=== PATIENT | female | born 1965 | race Two or more races ===

== ENCOUNTER 2024-05-17 16:52 | Inpatient (IN) | payer MEDICAID, MEDICARE, SELFPAY ==
[2024-05-17 16:55] VITALS: BMI 28.3
[2024-05-17 17:05] VITALS: BP 133/84; PULSE 102; RESP 20; TEMP 37.1; O2SAT 91; BMI 26.0
--- NOTE | 2024-05-17 17:06 | XR_ITS ---
Examination: PA lateral chest 2 views Technique: Upright PA lateral chest 2 views Exam date and time: May 17, 2024 1739 hrs. Comparison January 31, 2023 Indications: Onset chest pain today. Findings: Bilateral extensive pneumonia Mild to moderate enlargement left ventricle with prominent vascular congestion Moderate osteopenia Impression: Extensive bilateral pneumonia Suspicious for mild associated heart failure
--- NOTE | 2024-05-17 17:06 | EKG_ITS ---
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
--- NOTE | 2024-05-17 17:07 | PD.EDRME ---
Rapid Medical Screening Exam [facility] Arrival date/time: 05/17/24 16:52 58-year-old female oxygen dependent presents to the emergency department today complaints of chest pain, shortness of breath, abdominal pain and rectal bleeding Chief Complaint: Chest Pain Time Seen by Provider: 05/17/24 17:04 Vital signs: Vital Signs Temperature 98.7 F 05/17/24 17:05 Pulse Rate 102 H 05/17/24 17:05 Respiratory Rate 20 05/17/24 17:05 Blood Pressure 133/84 H 05/17/24 17:05 Pulse Oximetry (%) 91 L 05/17/24 17:05 Oxygen Delivery Method Nasal Cannula 05/17/24 17:05 Oxygen Flow Rate 3 05/17/24 17:05
--- NOTE | 2024-05-17 17:52 | XR_ITS ---
Examination: CT abdomen with intravenous contrast CT pelvis with intravenous contrast 2-D coronal reconstructions 2-D sagittal reconstructions Date and time of exam:May 17, 2024 at 1851 hrs. Comparison October 27, 2019 Indications: Onset right lower abdominal pain and rectal bleeding today. CTDI: vol (mGy) 7.38 DLP: (mGycm) 413 Technique: Multiple axial sections of the abdomen and pelvis have been obtained. 64 slice high-resolution scanner used. 3 mm axial sections have been obtained, post intravenous injection 60 cc [id number] 2-D sagittal, coronal reconstructions obtained. Low dose protocols were performed. One or more of the following dose reduction techniques were used; automated exposure control, adjustment of the mA and/or KV according to patient size, use of iterative reconstruction technique. Findings: Severe pulmonary fibrosis Liver mildly irregular in contour Spleen is not enlarged No gallstones No pancreatic or adrenal mass Severe bilateral renal scarring more prominent on the right Aorta normal size The appendix is not clearly visualized Very severe diffuse hyperemia and inflammatory change involving the entire colon No bowel obstruction Free fluid in the pelvis Contracted urinary bladder Absent uterus Moderate osteopenia Impression: Severe pulmonary fibrosis Primary hepatocellular disease Severe bilateral renal scarring Very severe diffuse colitis, differential would include ulcerative colitis, Crohn's disease
--- NOTE | 2024-05-17 17:53 | EDNOTE_ITS ---
ED General RME/HPI General Chief complaint: Chest Pain Stated complaint: chest pain, rectal bleeding, abdominal pain LR Time Seen by Provider: 05/17/24 17:04 Arrival date/time: 05/17/24 16:52 CC: Abdominal pain with bloody stools HPI ongoing for the past 3 days the patient has had red stools with abdominal pain no prior history of similar events. Patient is significant history for COPD denies fever but is also complaining of mild chest pain. RME / HPI RME / HPI narrative: 05/17/24 16:52 58-year-old female oxygen dependent presents to the emergency department today complaints of chest pain, shortness of breath, abdominal pain and rectal bleeding Related Data Home Medications ?Medication ?Instructions ?Recorded ?Confirmed methadone 10 mg/5 mL oral solution 109 mg PO QDAY 10/0901/27/23 quetiapine 200 mg tablet (Seroquel) 200 mg PO QDAY 10/0901/27/23 amitriptyline 75 mg tablet 75 mg PO QPM 11/11/2201/27 albuterol sulfate 90 mcg/actuation 2 puff inhalation Q ID PRN 01/27/23 01/27/23 aerosol inhaler Shortness Of Breath Or Wheez ing clonidine HCl 0.3 mg tablet 0.3 mg PO BID 01/27/2310/12 fluoxetine 40 mg capsule 40 mg PO BID 01/27/23 mometasone-formoterol HFA 200 2 puff inhalation BID 01/27/23 mcg-5 mcg/actuation aerosol inhaler (Dulera) Allergies Allergy/AdvReac Type Severity Reaction Status Date / Time Fish Containing Products Allergy Severe Anaphylaxis Verified 11/10/22 20:07 fish derived Allergy Severe Anaphylaxis Verified 11/10/22 20:07 shellfish derived Allergy Severe Anaphylaxis, Verified 10/28/22 17:38 HIVES AND THROAT SWELLING Review of Systems Review of Systems Narrative Review of Systems: GEN: No fever, no chills, no weight loss EYES: No discharge, no visual changes, no pain HEENT: No ear pain, no congestion, no sore throat PULM: No shortness of breath, no cough, no congestion CV: No chest pain, no dyspnea on exertion, no palpitations GI: No nausea, no vomiting, no diarrhea, + pain, no constipation : No frequency, no urgency, no dysuria MUSC/SKEL: No joint pain, no back pain SKIN: No rash PSYCH: No hallucinations, no depression HEME/LYMPH: No easy bleeding or bruising tendencies NEURO: No weakness, no headache Past Medical History Past Medical History NEUROLOGIC: Negative Neurological Disorders or Cerebrovascular Accident CARDIAC: Positive Cardiac Disorders and Hypertension; Negative Aneurysm or Congestive Heart Failure RESPIRATORY: Positive Chronic Obstructive Pulmonary Disease (COPD) and Asthma GASTROINTESTINAL: Negative Gastrointestinal Disorders GENITOURINARY: Negative Genitourinary Disorders or Renal Disease MUSCULOSKELETAL: Negative Musculoskeletal Disorders ENT: Negative Eye Prosthesis ENDOCRINE: Negative Diabetes Mellitus Type 1 or Diabetes Mellitus Type 2 HEMATOLOGIC: Negative Blood Disorders or Sickle Cell Disease PSYCHO/SOCIAL: Positive Depression OTHER HISTORY: Negative Autoimmune Disease, Developmental Delay, Blood Transfusions, Anesthesia Reactions, Organ Transplant, MRSA, Clostridium Difficile or Cancer Surgical History SURGICAL: Negative Cardiac Surgery, Open Heart Surgery, Endocrine Surgery, Ear Surgery, Abdominal Surgery, Nephrectomy, Joint Replacement, Neurologic Surgery, Mastectomy, Lumpectomy, Vasectomy or Organ Transplant Social History SMOKING STATUS: Never smoker SECOND HAND EXPOSURE: No ED Exam Narrative Physical exam: [General: In mild discomfort but not in any acute distress Head normocephalic HEENT: Within acceptable limits Neck is supple nontender Chest equal chest rise nontender to palpation Respiratory: Clear to auscultation no wheezes crackles or rubs CV: Rate rhythm is regular no murmurs rubs or clicks Abdomen patient is guarding with diffuse tenderness throughout. Back: No CVA tenderness no spinous process tenderness from cervical spine thoracic and lumbar spine Skin: Intact no petechiae rash induration ulceration or crepitus Extremities: Moving all extremity against resistance cap refill less than 2 seconds neurosensory intact Neuro: Awake alert oriented x3 Glascow coma 15 no focal deficits] Course Quality Measures none Orders Category Date Time Status CT Screening NOW Care 05/17/24 17:[address] Screening NOW Care 05/17/24 17:52 Completed EKG (ED ONLY) *Do not use* NOW Care 05/17/24 17:06 Completed Insert IV NOW Care 05/17/24 17:07 Active Saline [Insert IV] NOW Care 05/17/24 19:[address] abdomen pelvis w con Stat Exams 05/17/24 17:52 Completed EKG (ED Only) Stat Exams 05/17/24 17:06 Draft XR chest 2V Stat Exams 05/17/24 17:06 Completed B-Type Natriuretic Peptide Stat Lab 05/17/24 17:49 Completed CBC Stat Lab 05/17/24 17:49 Completed Comprehensive Metabolic Panel Stat Lab 05/17/24 17:49 Completed Drug Screen,Urine Stat Lab 05/18/24 10:00 Received Lipase Stat Lab 05/17/24 17:49 Completed Magnesium Stat Lab 05/17/24 17:49 Completed Partial Thromboplastin Time Stat Lab 05/17/24 17:49 Completed Prothrombin Time with INR Stat Lab 05/17/24 17:49 Completed Troponin I Stat Lab 05/17/24 17:49 Completed Urinalysis Stat Lab 05/18/24 10:00 Completed Sodium Chloride 0.9% 1000 ml [Ns] 1,000 ml Med 05/17/24 19:31 Discontinued IV 75 mls/hr Vital Signs Vital signs: Vital Signs Temperature 98.7 F 05/17/24 17:05 Pulse Rate 102 H 05/17/24 17:05 Respiratory Rate 20 05/17/24 17:05 Blood Pressure 133/84 H 05/17/24 17:05 Pulse Oximetry (%) 91 L 05/17/24 17:05 Oxygen Delivery Method Nasal Cannula 05/17/24 17:05 Oxygen Flow Rate 3 05/17/24 17:05 [facility] Patient data External records reviewed:: [facility] previous records Clinical information provided by:: patient Social determinants that could affect healthcare access:: none Patient has the following chronic illnesses:: COPD, hypertension How is presenting disease/condition affected by chronic disease/condition?: no chronic disease Evaluation data The following diagnostics were reviewed and interpreted by me:: lab results, radiology exam(s) and EKG tracing(s) Lab and/or radiology exams considered but not ordered:: CBC shows 17,000 leukocytosis, no anemia thrombocytopenia Coags within acceptable limits CMP shows elevated sodium and glucose no other electrolyte imbalances renal impairment transaminitis or T. bili elevation. Troponin is negative BNP is negative CT shows extensive colitis Chest x-ray shows superimposed pneumonia EKG performed at 1715 shows ventricular rate of 9 7 IL interval 173 QRS of 167 QTc of 441 this is sinus rhythm right bundle branch block. Interpretation Summary: Patient's case discussed with resident for Dr. Dubose who agrees to accept the patient for admission. Patient is in agreement with this plan. Medications Medications considered but not ordered:: None Medication administrations:: Medication Administration History Acetaminophen (Acetaminophen 325 Mg Tablet) 650 mg PO Q6H PRN PRN Reason: PAIN SCALE 1-3 (mild Stop: 06/16/24 19:57 Acetaminophen (Acetaminophen 325 Mg Tablet) 650 mg PO Q6H PRN PRN Reason: Fever >100.4 Stop: 06/16/24 19:57 Hydrocodone Bitart/Acetaminophen (Hydrocodone/Apap 10/325 Tab) 1 tab PO Q4HR PRN PRN Reason: PAIN SCALE 7-10 (Severe Stop: 05/22/24 19:57 Last Admin: 05/18/24 06:16 Dose: 1 tab Documented By: Admin: 05/17/24 20:49 Dose: 1 tab Documented By: CVL Albuterol/Ipratropium (Albuterol/Ipratropium (Duoneb) Rt Carmen 3 Ml Nebu) 3 ml INH Q6HRRT [facility] Stop: 06/17/24 00:59 Last Admin: 05/18/24 00:46 Dose: 3 ml Documented By: ANTONIO Sodium Chloride (Ns) 1,000 mls @ 75 mls/hr IV .[id number] [facility] Stop: 06/16/24 20:14 Last Admin: 05/17/24 21:14 Dose: 75 mls/hr Documented By: THOR Ciprofloxacin/Dextrose (Cipro Ivpb) 400 mg in 200 mls @ 200 mls/hr IV Q12HR [facility] Stop: 05/25/24 10:03 Metronidazole (Flagyl 500 Mg Iv) 500 mg in 100 mls @ 200 mls/hr IV Q8HR [facility] Stop: 05/25/24 10:04 Last Admin: 05/18/24 10:38 Dose: 200 mls/hr Documented By: BLANCA Ondansetron HCl (Ondansetron Inj 2 Mg/Ml Inj 2 Ml) 4 mg IV Q6H PRN; Protocol PRN Reason: NAUSEA OR VOMITING Stop: 06/16/24 19:57 Oxycodone/Acetaminophen (Oxycodone/Apap 5/325 Tablet) 1 tab PO Q6H PRN PRN Reason: PAIN SCALE 4-6 (Moderate Stop: 05/22/24 19:57 Last Admin: 05/17/24 23:55 Dose: 1 tab Documented By: [facility] Pantoprazole Sodium (Pantoprazole Inj 40 Mg Vial) 40 mg IVP QDAY BRIGIDO Stop: 06/16/24 20:14 Last Admin: 05/18/24 09:01 Dose: 40 mg Documented By: Admin: 05/17/24 20:49 Dose: 40 mg Documented By: CVL Discontinued Medications Hydromorphone HCl (Hydromorphone Inj 2 Mg/Ml Vial) 0.25 mg IVP X1 ONE Stop: 05/17/24 21:56 Last Admin: 05/17/24 22:05 Dose: 0.25 mg Documented By: [facility] Hydromorphone HCl (Hydromorphone Inj 2 Mg/Ml Vial) 0.5 mg IVP X1 ONE Stop: 05/17/24 22:55 Last Admin: 05/17/24 23:01 Dose: 0.5 mg Documented By: [facility] Sodium Chloride (Ns) 1,000 mls @ 75 mls/hr IV .[id number] BRIGIDO Stop: 05/18/24 08:00 Last Infusion: 05/17/24 21:14 Dose: Infused Documented By: Admin: 05/17/24 19:43 Dose: 75 mls/hr Documented By: THOR Piperacillin Sod/Tazobactam (Sod 3.375 gm/ Sodium Chloride) 50 mls @ 100 mls/hr IV Q8HR [facility] Stop: 05/25/24 05:59 Last Admin: 05/18/24 05:07 Dose: 100 mls/hr Documented By: [facility] Azithromycin 250 mg/ Sodium (Chloride) 250 mls @ 250 mls/hr IV DAILY@2100 [facility] Stop: 05/25/24 20:59 Azithromycin 250 mg/ Sodium (Chloride) 250 mls @ 250 mls/hr IV X1 ONE Stop: 05/17/24 21:14 Last Admin: 05/17/24 20:41 Dose: 250 mls/hr Documented By: CVL Piperacillin Sod/Tazobactam (Sod 4.5 gm/ Sodium Chloride) 100 mls @ 200 mls/hr IV X1 ONE Stop: 05/17/24 20:44 Last Admin: 05/17/24 21:38 Dose: 200 mls/hr Documented By: [facility] Sodium Chloride (Sodium Chloride Rt 10% 15 Ml Nebu) 5 ml INH X1 ONE Stop: 05/17/24 19:59 None Consultations Consultation(s) initiated? (list below): No Diagnosis Differential Diagnosis ED Complaint MDM: Pneumonia colitis ileus obstruction Most likely diagnosis given after review of the tests above:: Pneumonia colitis Admission Indicated Admission indicated?: indicated Explain why admission is indicated or not indicated:: Requires further medical management Admission Request Was there a request for admission?: No Disposition Plan Disposition Plan: Admit Medical Decision Making Differential Diagnosis Differential Diagnosis: Pneumonia colitis ileus obstruction Lab Data 05/18/24 05:16 05/18/24 05:16 Labs: Lab Results 05/17/24 Range/Units 17:49 WBC 17.2 H (3.6-11.0) Thou/mm3 RBC 4.90 (4.00-5.20) Miln/mm3 Hgb 12.7 (12.0-16.0) g/dL Hct 41.2 (36.0-46.0) % MCV 84 (80-100) fL MCH 25.9 (25.0-35.0) pg MCHC 30.8 L (31.0-37.0) g/dl RDW Std Deviation 44.0 (36.4-46.3) fL Plt Count 279 (140-440) Thou/mm3 Neut % (Auto) 82 H (37-80) % Lymph % (Auto) 8 L (10-50) % [place] % (Auto) 9 (0-12) % Eos % (Auto) 1 (0-10) % Baso % (Auto) 0 (0-2.5) % Neut # (Auto) 14.1 H (1.8-7.7) Thou/mm3 Lymph # (Auto) 1.4 (1.0-4.8) Thou/mm3 [place] # (Auto) 1.5 H (0.0-0.8) Thou/mm3 Eos # (Auto) 0.1 (0.0-0.5) Thou/mm3 Baso # (Auto) 0.0 (0.0-0.2) Thou/mm3 Immature Gran # (Auto) 0.10 H (0.00-0.00) Thou/mm3 Absolute Nucleated RBC 0.00 (0.00-0.00) Thou/mm3 Immature Gran % 1 H (0-0) % Nucleated RBC % 0 (0) /100 WBC PT 11.6 (9.0-12.2) Seconds INR 1.1 (0.9-1.3) APTT 28.7 (22.0-36.0) Seconds Sodium 135 L (136-145) mMol/L Potassium 4.2 (3.4-5.1) mMol/L Chloride 99 (98-107) mMol/L Carbon Dioxide 30.6 (20.0-31.0) mMol/L Anion Gap 5 L (7-16) BUN 14 (9-23) mg/dL Creatinine 0.9 (0.6-1.3) mg/dL Estim Creat Clear Calc 57.8 L (>60) mL/min eGFR > 60 (60 - ) See Note BUN/Creatinine Ratio 16 (12-20) Ratio Glucose 139 H (74-106) mg/dL Calculated Osmolality 272 L (275-295) Calcium 8.8 (8.3-10.6) mg/dL Corrected Calcium 9.2 (8.5-10.1) mg/dL Magnesium 1.8 (1.6-2.6) mg/dL Total Bilirubin 0.2 L (0.3-1.2) mg/dL AST 16 (0-34) U/L ALT 17 (10-49) U/L Alkaline Phosphatase 101 (46-116) U/L Troponin I < 0.002 (0.0-0.045) ng/mL B-Natriuretic Peptide < 20 (0-100) pg/mL Total Protein 6.6 (5.7-8.2) gm/dL Albumin 3.5 (3.5-5.0) gm/dL Globulin 3.1 (2.3-3.5) gm/dL Albumin/Globulin Ratio 1.1 L (1.2-2.2) Lipase 20 (12-53) U/L Discharge Plan Plan Patient Disposition: Other Care w/in Hosp ([facility]) Patient condition on transfer: Stable Problem List Clinical Impression: Pneumonia, Colitis 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
[2024-05-17 17:54] LABS: Basophils % (Auto) 0 % (0-2.5); Eosinophils # (Auto) 0.1 Thou/mm3 (0.0-0.5); Eosinophils % (Auto) 1 % (0-10); Hematocrit 41.2 % (36.0-46.0); Hemoglobin 12.7 g/dL (12.0-16.0); Immature Granulocytes % (Auto) 1 % (0-0); Lymphocytes # (Auto) 1.4 Thou/mm3 (1.0-4.8); Lymphocytes % (Auto) 8 % (10-50); Mean Corpuscular HGB Conc 30.8 g/dl (31.0-37.0); Mean Corpuscular Hemoglobin 25.9 pg (25.0-35.0); Mean Corpuscular Volume 84 fL (80-100); Monocytes # (Auto) 1.5 Thou/mm3 (0.0-0.8); Monocytes % (Auto) 9 % (0-12); Neutrophils # (Auto) 14.1 Thou/mm3 (1.8-7.7); Neutrophils % (Auto) 82 % (37-80); Nucleated Red Blood Cell % 0 /100 WBC (0); Platelet Count 279 Thou/mm3 (140-440); White Blood Count 17.2 Thou/mm3 (3.6-11.0)
[2024-05-17 18:08] LABS: INR 1.1 (0.9-1.3); Partial Thromboplastin Time 28.7 Seconds (22.0-36.0); Prothrombin Time 11.6 Seconds (9.0-12.2)
[2024-05-17 18:10] LABS: B-Type Natriuretic Peptide < 20 pg/mL (0-100)
[2024-05-17 18:24] LABS: Alanine Aminotransferase 17 U/L (10-49); Albumin, Serum 3.5 gm/dL (3.5-5.0); Albumin/Globulin Ratio 1.1 (1.2-2.2); Anion Gap 5 (7-16); Aspartate Amino Transferase 16 U/L (0-34); BUN/Creatinine Ratio 16 Ratio (12-20); Bilirubin,Total 0.2 mg/dL (0.3-1.2); Blood Urea Nitrogen 14 mg/dL (9-23); Calcium 8.8 mg/dL (8.3-10.6); Calcium (Corrected) 9.2 mg/dL (8.5-10.1); Carbon Dioxide 30.6 mMol/L (20.0-31.0); Chloride 99 mMol/L (98-107); Creatinine (Component) 0.9 mg/dL (0.6-1.3); Estimated Creatinine Clearance 57.8 mL/min (>60); Globulin 3.1 gm/dL (2.3-3.5); Glucose 139 mg/dL (74-106); Lipase 20 U/L (12-53); Magnesium 1.8 mg/dL (1.6-2.6); Osmolality,Calculated 272 (275-295); Potassium 4.2 mMol/L (3.4-5.1); Sodium 135 mMol/L (136-145); Total Protein 6.6 gm/dL (5.7-8.2); Troponin I < 0.002 ng/mL (0.0-0.045); eGFR > 60 See Note
[2024-05-17 19:05] LABS: Alkaline Phosphatase 101 U/L (46-116)
[2024-05-17 19:21] VITALS: BP 147/78; PULSE 86; RESP 18; TEMP 37; O2SAT 97
[2024-05-17] MEDS: SODIUM CHLORIDE 0.9% 1000 ML 1,000 ML 75 ML IV ×2 (19:43→21:14)
--- NOTE | 2024-05-17 20:15 | ESHP_ITS ---
Documentation for date of: 05/17/24 [facility] History of Present Illness History of present illness: This is a 58-year-old female with PMHx of COPD on 3.5 L home oxygen, HTN, and depression presenting with abdominal pain and diarrhea. Reports 1 week of gradual onset, waxing and waning, diffuse abdominal pain that worsened over the last few days. Associated with watery diarrhea and occasional streaks of blood that occurred around the same time. Pain not associated with eating, however relieved with defecation. Admits to chronic dark stool. Also had subjective fever over the last week, but no chills or night sweats. She has tried IBUPROFEN for pain without relief of symptoms. When Denies similar symptoms in the past, sick exposure, recent travel, fall or trauma, chills, night sweats, headaches, chest pain, cough, shortness of breath, nausea, vomiting or constipation, dysuria, hematuria, urinary frequency or urgency. Never had screening colonoscopy or endoscopy in the past. ED COURSE: Afebrile, BP 147/78, HR 86, RR 18, satting 97% on 3 L. WBC 17.2, major CBC within normal limits. Coag studies. Sodium 135, GLUCOSE 139, remainder chemistry panel WNL, including LFTs, LA, troponin and BNP. UA negative for UTI. EKG sinus rhythm without acute ST changes. CXR showed extensive bilateral pneumonia, suspected mild CHF pattern. PMHx: COPD, HTN, depression PSHx: No surgeries including abdominal surgery. MEDS: From chart review (doesn't know her home meds): ALBUTEROL inhaler 2 puffs QID PRN, DULERA 2 puffs BID, CLONIDINE 0.3 mg BID, FLUOXETINE 40 mg BID, AMITRIPTYLINE 75 mg HS, QUETIAPINE 200 mg daily. ALLERGIES: Allergy to fish product and shellfish FHx: No family history of cancer, inflammatory, or GI disease. SH: Active smoker, currently smokes 1 cigarette a day, denies alcohol or drug use. Exam Vital Signs Temp Pulse Resp BP Pulse Ox O2 Del Method O2 Flow Rate 98.6 F 86 18 147/78 H 97 Nasal Cannula 3 05/17/24 19:21 05/17/24 19:21 05/17/24 19:21 05/17/24 19:21 05/17/24 19:21 05/17/24 19:21 05/17/24 19:21 Narrative Exam GENERAL * Normal appearing adult female, in mild distress secondary to pain. HEENT * NCAT.?CHIQUI. Oral mucosa is moist. Patent Nares NECK * Supple, nontender, no thyromegaly, no meningismus, no JVD, no step offs CHEST * RRR, no m/g/r * CTAB, no w/r/r. Symmetrical chest rise. No intercostal subcostal retraction * Atraumatic, nontender, no crepitus, symmetrical expansion. ABDOMEN * Soft, distended, diffus tenderness worse in RLQ. * Mild guarding in RLQ, no rebound tenderness/masses. * Bowel sounds presents in all quadrants. EXTREMITIES * Nontender, no cyanosis, no edema * No edema/cyanosis.? SKIN * Warm and dry, no jaundice/rashes. NEUROMUSCULAR * No lumbar or midline, no CVA, no paraspinal muscle spasm or tenderness. * Moves all 4 extremities well, with full ROM and good CSM. * RICHARDS x4, CN II-XII grossly intact. * No focal neurologic deficits. PSYCHIATRY * Normal mood and affect, cooperative, no SI or HI or hallucinations. Results: Labs 05/17/24 17:49 05/17/24 17:49 Labs: Short CBC 05/17/24 Range/Units 17:49 WBC 17.2 H (3.6-11.0) Thou/mm3 Hgb 12.7 (12.0-16.0) g/dL Hct 41.2 (36.0-46.0) % Plt Count 279 (140-440) Thou/mm3 BMP 05/17/24 17:49 Sodium 135 L Potassium 4.2 Chloride 99 Carbon Dioxide 30.6 BUN 14 Creatinine 0.9 Glucose 139 H Calcium 8.8 Cardiac Enzymes 05/17/24 Range/Units 17:49 Troponin I < 0.002 (0.0-0.045) ng/mL Liver Function 05/17/24 Range/Units 17:49 Total Bilirubin 0.2 L (0.3-1.2) mg/dL AST 16 (0-34) U/L ALT 17 (10-49) U/L Alkaline Phosphatase 101 (46-116) U/L Albumin 3.5 (3.5-5.0) gm/dL Quality Measures Quality Measures VTE prophylaxis Medications Home Medications and Allergies Home Medications ?Medication ?Instructions ?Recorded ?Confirmed ?Type methadone 10 mg/5 mL oral solution 109 mg PO QDAY 10/0901/27/23 History quetiapine 200 mg tablet (Seroquel) 200 mg PO QDAY 10/0901/27/23 History amitriptyline 75 mg tablet 75 mg PO QPM 11/11/2201/27 History albuterol sulfate 90 mcg/actuation 2 puff inhalation Q ID PRN 01/27/23 01/27/23 History aerosol inhaler Shortness Of Breath Or Wheez ing clonidine HCl 0.3 mg tablet 0.3 mg PO BID 01/27/2310/12 History fluoxetine 40 mg capsule 40 mg PO BID 01/27/23 History mometasone-formoterol HFA 200 2 puff inhalation BID 01/27/23 History mcg-5 mcg/actuation aerosol inhaler (Dulera) Allergies Allergy/AdvReac Type Severity Reaction Status Date / Time Fish Containing Products Allergy Severe Anaphylaxis Verified 11/10/22 20:07 fish derived Allergy Severe Anaphylaxis Verified 11/10/22 20:07 shellfish derived Allergy Severe Anaphylaxis, Verified 10/28/22 17:38 HIVES AND THROAT SWELLING Visit Medications Acetaminophen (Acetaminophen 325 Mg Tablet) 650 mg PO Q6H PRN PRN Reason: PAIN SCALE 1-3 (mild Stop: 06/16/24 19:57 Acetaminophen (Acetaminophen 325 Mg Tablet) 650 mg PO Q6H PRN PRN Reason: Fever >100.4 Stop: 06/16/24 19:57 Hydrocodone Bitart/Acetaminophen (Hydrocodone/Apap 10/325 Tab) 1 tab PO Q4HR PRN PRN Reason: PAIN SCALE 7-10 (Severe Stop: 05/22/24 19:57 Albuterol/Ipratropium (Albuterol/Ipratropium (Duoneb) Rt Carmen 3 Ml Nebu) 3 ml INH Q6HRRT BRIGIDO Stop: 06/17/24 00:59 Sodium Chloride (Ns) 1,000 mls @ 75 mls/hr IV .[id number] BRIGIDO Stop: 05/18/24 08:00 Last Admin: 05/17/24 19:43 Dose: 75 mls/hr Piperacillin Sod/Tazobactam (Sod 4.5 gm/ Sodium Chloride) 100 mls @ 200 mls/hr IV Q8HR BRIGIDO Stop: 05/24/24 21:59 Azithromycin 250 mg/ Sodium (Chloride) 250 mls @ 250 mls/hr IV QDAY BRIGIDO Stop: 05/24/24 20:14 Sodium Chloride (Ns) 1,000 mls @ 75 mls/hr IV .[id number] BRIGIDO Stop: 06/16/24 20:14 Azithromycin 250 mg/ Sodium (Chloride) 250 mls @ 250 mls/hr IV X1 ONE Stop: 05/17/24 21:14 Piperacillin Sod/Tazobactam (Sod 4.5 gm/ Sodium Chloride) 100 mls @ 200 mls/hr IV X1 ONE Stop: 05/17/24 20:44 Ondansetron HCl (Ondansetron Inj 2 Mg/Ml Inj 2 Ml) 4 mg IV Q6H PRN; Protocol PRN Reason: NAUSEA OR VOMITING Stop: 06/16/24 19:57 Oxycodone/Acetaminophen (Oxycodone/Apap 5/325 Tablet) 1 tab PO Q6H PRN PRN Reason: PAIN SCALE 4-6 (Moderate Stop: 05/22/24 19:57 Pantoprazole Sodium (Pantoprazole Inj 40 Mg Vial) 40 mg IVP QDAY [facility] Stop: 06/16/24 20:14 Discontinued Medications Sodium Chloride (Sodium Chloride Rt 10% 15 Ml Nebu) 5 ml INH X1 ONE Stop: 05/17/24 19:59 Assessment & Plan Plan In summary: 58-year-old female with PMHx of COPD on 3 L home oxygen, HTN, and depression, admitted for abdominal pain and diarrhea. Appreciate recommendations from GI team. Colitis, severe/diffuse Abdominal pain Leukocytosis Presenting with 1 week of insidious onset abdominal pain, watery/bloody diarrhea. Pain is generalized, rated 8 out of 10, improves with defecation, not related to oral intake. Had subjective fever at home and 20 lb weight loss for 3 months, no chills or night sweats. No previous colonoscopy or endoscopy. No recent travel or sick exposure. Has tenderness to palpation diffusely, worse in RLQ. CT abdomen showed diffuse extensive colitis. WBC 17.2, afebrile, remainder labs/vitals WNL including hemoglobin. Picture concerning for inflammatory vs infectious bowel disease. ? Continue NS maintenance at 75 cc/H ? Continue ZOSYN (05/17 to present) ? Continue PROTONIX 40 mg IV daily ? Pending stool cultures, C. difficile, calprotectin, WBC ? Pending blood culture ? Pending GI recommendations ? Recommended avoiding NSAIDs Community-acquired pneumonia Severe pulmonary fibrosis COPD CXR showed extensive bilateral pneumonia. CT showed severe pulmonary fibrosis. COPD on 3.5 L home oxygen. Denies cough, chest pain, Hartness of breath. Will treat for pneumonia given COPD and leukocytosis. ? Continue AZITHROMYCIN (05/17 to present) ? Continue DuoNebs q.6h. HTN She may be on CLONIDINE 0.3 mg BID, pending med rec. BP 147/78, HR 86. ? Consider restarting home meds as indicated Depression Per chart review, she may be on FLUOXETINE 40 mg BID, AMITRIPTYLINE 75 mg HS, QUETIAPINE 200 mg daily. ? Restart after med rec Incidental findings CT showed primary hepatocellular disease, severe bilateral renal scarring. No lab findings of hepatocellular renal dysfunction. ? Continue monitoring ? Recommended outpatient follow-up Health maintenance Diet: NPO GI prophylaxis: PROTONIX DVT prophylaxis: SCD Antibiotics: ZOSYN, AZITHROMYCIN CODE STATUS: Full code Disposition: Workup for abdominal pain. Patient case was discussed with attending, Everette Dubose MD. Aniyah Mcdaniel DO PGYI Attending Provider Attestation/Addendum I attest that I was physically present for the evaluation, physical examination, lab and imaging review of the patient with the residents. I discussed the case with the residents and agree with the findings and plans of care as documented above. Patient is a 58 years old female with past medical history of COPD on 3.5 L oxygen at home, hypertension, depression and anxiety presented to the ED with complaint of abdominal pain and diarrhea for 1 week. Patient has been having waxing and waning episodes of pain, also had streaks of blood and dark stool. She has been able to tolerate diet and denies any vomiting. Denied previous colonoscopies. Denied any family history of IBD. In the ED, she was found to have blood pressure of 147/78, WBC 17.2. Saturating well on 3 L nasal cannula. Chest x-ray shows bilateral pneumonia. CT abdomen was done, which showed diffuse extensive colitis. We will admit patient for further workup and management of intractable abdominal pain, colitis. Started patient on IV Zosyn, Protonix and IV hydration. We will obtain stool studies including cultures, C. difficile, calprotectin. We will also obtain GI consult. Started patient on azithromycin for possible community-acquired pneumonia in setting of COPD. Fred Dubose MD
[2024-05-17] MEDS: AZITHROMYCIN INJ 250 MG in SODIUM CHLORIDE 0.9% 250 ML 250 ML IV (20:41)
[2024-05-17] MEDS: HYDROcodone/APAP 10/325 TAB PO (20:49)
[2024-05-17] MEDS: PANTOPRAZOLE INJ 40 MG VIAL IVP (20:49)
[2024-05-17 21:35] VITALS: BP 152/84; PULSE 88; RESP 16; TEMP 36.1; O2SAT 99
--- NOTE | 2024-05-17 21:35 | PD.IMCONS ---
HPI Data of Consult Requesting Physician: Fred Dubose MD Primary Care Provider: Riley Hess PA-C Consult Narrative Reason for consult: Abdominal pain, bloody stools, abnormal CTAP History of present illness: 58-year-old female presented to the hospital with severe abdominal pain and bloody diarrhea CT scan of the abdomen pelvis showed diffuse colitis and severe pulmonary fibrosis WBC count 17.2 hemoglobin hematocrit 12.7 and 42.2 with a platelet count of 279,000 cc:: cc: Fred Dubose MD Review of Systems Review of Systems Systems Reviewed: All systems reviewed, normal except as documented Past Medical History Surgical History OTHER SURGICAL HX: As in the history of present illness Meds Home Medications and Allergies Home Medications ?Medication ?Instructions ?Recorded ?Confirmed ?Type methadone 10 mg/5 mL oral solution 109 mg PO QDAY 10/28/19 01/27/23 History quetiapine 200 mg tablet (Seroquel) 200 mg PO QDAY 10/28/19 01/27/23 History amitriptyline 75 mg tablet 75 mg PO QPM 11/11/22 01/27/23 History albuterol sulfate 90 mcg/actuation 2 puff inhalation QID PRN 01/27/23 01/27/23 History aerosol inhaler Shortness Of Breath Or Wheezing clonidine HCl 0.3 mg tablet 0.3 mg PO BID 01/27/23 01/27/23 History fluoxetine 40 mg capsule 40 mg PO BID 01/27/23 01/27/23 History mometasone-formoterol HFA 200 2 puff inhalation BID 01/27/23 01/27/23 History mcg-5 mcg/actuation aerosol inhaler (Dulera) Allergies Allergy/AdvReac Type Severity Reaction Status Date / Time Fish Containing Products Allergy Severe Anaphylaxis Verified 11/10/22 20:07 fish derived Allergy Severe Anaphylaxis Verified 11/10/22 20:07 shellfish derived Allergy Severe Anaphylaxis, Verified 10/28/22 17:38 HIVES AND THROAT SWELLING Exam Vital Signs Temp Pulse Resp BP Pulse Ox O2 Del Method O2 Flow Rate 98.6 F 86 18 147/78 H 97 Nasal Cannula 3 05/17/24 19:21 05/17/24 19:21 05/17/24 19:21 05/17/24 19:21 05/17/24 19:21 05/17/24 19:21 05/17/24 19:21 Routine Respiratory Exam Comments: Normal to auscultation Routine Abdominal Exam Comments: Soft tender positive bowel sounds Results Labs 05/17/24 17:49 05/17/24 17:49 Labs: Short CBC 05/17/24 Range/Units 17:49 WBC 17.2 H (3.6-11.0) Thou/mm3 Hgb 12.7 (12.0-16.0) g/dL Hct 41.2 (36.0-46.0) % Plt Count 279 (140-440) Thou/mm3 BMP 05/17/24 17:49 Sodium 135 L Potassium 4.2 Chloride 99 Carbon Dioxide 30.6 BUN 14 Creatinine 0.9 Glucose 139 H Calcium 8.8 Cardiac Enzymes 05/17/24 Range/Units 17:49 Troponin I < 0.002 (0.0-0.045) ng/mL Liver Function 05/17/24 Range/Units 17:49 Total Bilirubin 0.2 L (0.3-1.2) mg/dL AST 16 (0-34) U/L ALT 17 (10-49) U/L Alkaline Phosphatase 101 (46-116) U/L Albumin 3.5 (3.5-5.0) gm/dL Assessment and Plan Additional Assessment & Plan Additional Plan: # Pain abdomen with bloody diarrhea abnormal CT scan of the abdomen pelvis differential diagnosis include infectious colitis versus inflammatory bowel disease Plan stool for Gram stain stool culture and sensitivity stool C. difficile CRP ANCA antibody Fecal calprotectin If above negative we will consider fiberoptic colonoscopy with possible biopsies Agree with broad-spectrum antibiotics Thank you very much for the opportunity to participate in the care of this patient
[2024-05-17] MEDS: PIPER/TAZO INJ 4.5 GM in SODIUM CHLORIDE 0.9% (POP) 100 ML IV (21:38)
[2024-05-17 21:42] VITALS: PULSE 89; RESP 20; RESP 97
[2024-05-17] MEDS: HYDROmorphone INJ 2 MG/ML VIAL 0.25 MG IVP (22:05)
[2024-05-17] MEDS: HYDROmorphone INJ 2 MG/ML VIAL 0.5 MG IVP (23:01)
[2024-05-17 23:02] LABS: Sed Rate (ESR) 56 mm/hr (0-30)
[2024-05-17 23:08] LABS: C-Reactive Protein 13.1 mg/dL (0.0-0.9)
[2024-05-17] MEDS: oxyCODONE/APAP 5/325 TABLET 1 TAB PO (23:55)
[2024-05-18] VITALS (10 sets, daily range): BP systolic 152–164; BP diastolic 78–95; PULSE 83–93; RESP 16–98; TEMP 36–36.5; O2SAT 94–100; BMI 26.4; BMI 26.3
[2024-05-18] MEDS: ALBUTEROL/IPRATROPIUM (Duoneb) RT SOL 3 ML NEBU INH ×2 (00:46→23:04)
[2024-05-18] MEDS: PIPER/TAZO INJ 3.375 GM in SODIUM CHLORIDE 0.9% (Popper) 50 ML IV (05:07)
[2024-05-18 06:08] LABS: Basophils # (Auto) 0.1 Thou/mm3 (0.0-0.2); Basophils % (Auto) 0 % (0-2.5); Eosinophils # (Auto) 0.1 Thou/mm3 (0.0-0.5); Eosinophils % (Auto) 1 % (0-10); Hematocrit 41.3 % (36.0-46.0); Hemoglobin 12.8 g/dL (12.0-16.0); Immature Granulocytes % (Auto) 1 % (0-0); Immature Granulocytes Auto 0.08 Thou/mm3 (0.00-0.00); Lymphocytes # (Auto) 1.1 Thou/mm3 (1.0-4.8); Lymphocytes % (Auto) 6 % (10-50); Mean Corpuscular Hemoglobin 26.2 pg (25.0-35.0); Mean Corpuscular Volume 85 fL (80-100); Monocytes # (Auto) 1.3 Thou/mm3 (0.0-0.8); Monocytes % (Auto) 7 % (0-12); Neutrophils # (Auto) 14.8 Thou/mm3 (1.8-7.7); Neutrophils % (Auto) 85 % (37-80); Nucleated Red Blood Cell % 0 /100 WBC (0); Platelet Count 266 Thou/mm3 (140-440); RDW Standard Deviation 44.2 fL (36.4-46.3); Red Blood Count 4.89 Miln/mm3 (4.00-5.20); White Blood Count 17.5 Thou/mm3 (3.6-11.0)
[2024-05-18] MEDS: HYDROcodone/APAP 10/325 TAB PO ×2 (06:16→19:36)
[2024-05-18 06:32] LABS: Alanine Aminotransferase 16 U/L (10-49); Albumin, Serum 3.3 gm/dL (3.5-5.0); Albumin/Globulin Ratio 1.2 (1.2-2.2); Alkaline Phosphatase 90 U/L (46-116); Anion Gap 6 (7-16); Aspartate Amino Transferase 18 U/L (0-34); BUN/Creatinine Ratio 17 Ratio (12-20); Bilirubin,Total 0.2 mg/dL (0.3-1.2); Blood Urea Nitrogen 12 mg/dL (9-23); Calcium 8.5 mg/dL (8.3-10.6); Calcium (Corrected) 9.1 mg/dL (8.5-10.1); Carbon Dioxide 30.7 mMol/L (20.0-31.0); Chloride 103 mMol/L (98-107); Creatinine (Component) 0.7 mg/dL (0.6-1.3); Estimated Creatinine Clearance 74.7 mL/min (>60); Globulin 2.8 gm/dL (2.3-3.5); Glucose 103 mg/dL (74-106); Magnesium 1.7 mg/dL (1.6-2.6); Osmolality,Calculated 279 (275-295); Potassium 4.2 mMol/L (3.4-5.1); Sodium 140 mMol/L (136-145); Total Protein 6.1 gm/dL (5.7-8.2); eGFR > 60 See Note
[2024-05-18 06:50] LABS: Stool for WBCs Negative (Negative)
[2024-05-18] MEDS: PANTOPRAZOLE INJ 40 MG VIAL IVP (09:01)
--- NOTE | 2024-05-18 09:22 | ESPR_ITS ---
<Statement entered by Fabricio Kennedy MD - 05/18/24 18:42> I discussed with and supervised the web marketing intern physician involved in the care of this patient. Patient assessment and plan was discussed with entire medicine team, including my attending. I agree with the assessment and plan as documented by web marketing intern doctor. Patient care was discussed with my attending physician Dr. Theron Kennedy, PGY-2 Documentation for date of: 05/18/24 Subjective Subjective Interval history: Patient's is [place]e-speaking and interaction facilitated by registered healthcare shear grinder operator. Patient was seen and examined at bedside this AM. No acute exents overnight. Patient n.p.o., adequate urine output and mentation is at baseline. Patient complains of nausea, generalized 10/10 abdominal pain cramping in nature with no relief and diarrhea with bright red blood in his stool. Will discontinue Zosyn and start patient on ciprofloxacin 400 Mg IV twice daily and metronidazole 500 Mg IV every 8 hourly. Liver ultrasound and hepatitis panel ordered. To confirm with pharmacy patient's home methadone dose prior to resuming. Exam Vital Signs Temp Pulse Resp BP Pulse Ox O2 Del Method O2 Flow Rate 96.8 F 83 18 157/90 H 98 Nasal Cannula 3 05/18/24 07:44 05/18/24 07:44 05/18/24 07:44 05/18/24 07:44 05/18/24 07:44 05/18/24 07:44 05/18/24 07:44 Narrative Exam Constitutional Alert, oriented x 3 and in mild distress. Middle-age female HEENT Vision grossly intact. Patent nares. Trachea midline Respiratory Chest normal on inspection and clear auscultation bilaterally Cardiovascular S1 and S2 audible, RRR. No murmurs carotid bruit. No gross JVD. Abdominal Soft and generalized tenderness to palpation in all quadrants with rebound tenderness but no guarding, bowel sounds present. Genitourinary No bladder tenderness, no flank pain. Normal to palpation Musculoskeletal Extremities tone within normal limits. No LE edema. Neurological CN II - XII grossly intact. Extremity motor and sensation grossly intact. Skin Warm, dry and intact. No apparent lesions. Psychiatric Patient has good affect, is cooperative Objective Labs 05/19/24 05:06 05/19/24 05:06 Labs: Laboratory Results - last 24 hr 05/17/24 05/17/24 05/18/24 17:49 22:25 05:16 WBC 17.2 H 17.5 H RBC 4.90 4.89 Hgb 12.7 12.8 Hct 41.2 41.3 MCV 84 85 MCH 25.9 26.2 MCHC 30.8 L 31.0 RDW Std Deviation 44.0 44.2 Plt Count 279 266 Neut % (Auto) 82 H 85 H Lymph % (Auto) 8 L 6 L Troup % (Auto) 9 7 Eos % (Auto) 1 1 Baso % (Auto) 0 0 Neut # (Auto) 14.1 H 14.8 H Lymph # (Auto) 1.4 1.1 Troup # (Auto) 1.5 H 1.3 H Eos # (Auto) 0.1 0.1 Baso # (Auto) 0.0 0.1 Immature Gran # (Auto) 0.10 H 0.08 H Absolute Nucleated RBC 0.00 0.00 Immature Gran % 1 H 1 H Nucleated RBC % 0 0 ESR 56 H PT 11.6 INR 1.1 APTT 28.7 Sodium 135 L 140 Potassium 4.2 4.2 Chloride 99 103 Carbon Dioxide 30.6 30.7 Anion Gap 5 L 6 L BUN 14 12 Creatinine 0.9 0.7 Estim Creat Clear Calc 57.8 L 74.7 eGFR > 60 > 60 BUN/Creatinine Ratio 16 17 Glucose 139 H 103 Calculated Osmolality 272 L 279 Calcium 8.8 8.5 Corrected Calcium 9.2 9.1 Phosphorus 3.0 Magnesium 1.8 1.7 Total Bilirubin 0.2 L 0.2 L AST 16 18 ALT 17 16 Alkaline Phosphatase 101 90 Troponin I < 0.002 C-Reactive Prot, Quant 13.1 H B-Natriuretic Peptide < 20 Total Protein 6.6 6.1 Albumin 3.5 3.3 L Globulin 3.1 2.8 Albumin/Globulin Ratio 1.1 L 1.2 Lipase 20 Stool for White Cells Stl Giardia Antigen 05/18/24 05:24 WBC RBC Hgb Hct MCV MCH MCHC RDW Std Deviation Plt Count Neut % (Auto) Lymph % (Auto) Troup % (Auto) Eos % (Auto) Baso % (Auto) Neut # (Auto) Lymph # (Auto) Troup # (Auto) Eos # (Auto) Baso # (Auto) Immature Gran # (Auto) Absolute Nucleated RBC Immature Gran % Nucleated RBC % ESR PT INR APTT Sodium Potassium Chloride Carbon Dioxide Anion Gap BUN Creatinine Estim Creat Clear Calc eGFR BUN/Creatinine Ratio Glucose Calculated Osmolality Calcium Corrected Calcium Phosphorus Magnesium Total Bilirubin AST ALT Alkaline Phosphatase Troponin I C-Reactive Prot, Quant B-Natriuretic Peptide Total Protein Albumin Globulin Albumin/Globulin Ratio Lipase Stool for White Cells Negative Stl Giardia Antigen Cancelled Quality Measures Quality Measures VTE prophylaxis Assessment & Plan Assessment Current Active Medications: Generic Name Dose Route Start Last Admin Trade Name Freq PRN Reason Stop Dose Admin Acetaminophen 650 mg 05/17/24 19:58 Acetaminophen 325 Mg Tablet PO 06/16/24 19:57 Q6H PRN PAIN SCALE 1-3 (mild Acetaminophen 650 mg 05/17/24 19:58 Acetaminophen 325 Mg Tablet PO 06/16/24 19:57 Q6H PRN Fever >100.4 Hydrocodone Bitart/Acetaminophen 1 tab 05/17/24 19:58 05/18/24 06:16 Hydrocodone/Apap 10/325 Tab PO 05/22/24 19:57 1 tab Q4HR PRN Administration PAIN SCALE 7-10 (Severe Albuterol/Ipratropium 3 ml 05/18/24 01:00 05/18/24 00:46 Albuterol/Ipratropium (Duoneb) Rt Carmen 3 Ml Nebu INH 06/17/24 00:59 3 ml Q6HRRT BRIGIDO Administration Piperacillin Sod/Tazobactam 50 mls @ 100 mls/hr 05/18/24 06:00 05/18/24 05:07 Sod 3.375 gm/ Sodium Chloride IV 05/25/24 05:59 100 mls/hr Q8HR BRIGIDO Administration Azithromycin 250 mg/ Sodium 250 mls @ 250 mls/hr 05/18/24 21:00 Chloride IV 05/25/24 20:59 DAILY@2100 BRIGIDO Sodium Chloride 1,000 mls @ 75 mls/hr 05/17/24 20:15 05/17/24 21:14 Ns IV 06/16/24 20:14 75 mls/hr .[id number] BRIGIDO Administration Ondansetron HCl 4 mg 05/17/24 19:58 Ondansetron Inj 2 Mg/Ml Inj 2 Ml IV 06/16/24 19:57 Q6H PRN NAUSEA OR VOMITING Protocol Oxycodone/Acetaminophen 1 tab 05/17/24 19:58 05/17/24 23:55 Oxycodone/Apap 5/325 Tablet PO 05/22/24 19:57 1 tab Q6H PRN Administration PAIN SCALE 4-6 (Moderate Pantoprazole Sodium 40 mg 05/17/24 20:15 05/18/24 09:01 Pantoprazole Inj 40 Mg Vial IVP 06/16/24 20:14 40 mg QDAY BRIGIDO Administration Plan In summary: 58-year-old female with PMHx of COPD on 3 L home oxygen, HTN, and depression who presented with worsening abdominal pain, diarrhea with bright red IA bleed and admitted for workup and management of abdominal pain and diarrhea. GI bleed for investigation, likely lower Diffuse colitis Diarrhea for Investigation Abdominal pain Leukocytosis Patient presented with 1 week of progressively worsening abdominal pain and watery diarrhea with occasional bright red blood. On exam patient has diffuse generalized tenderness to palpation of the abdomen with rebound tenderness but no guarding. DDx: Medication side effect, IBS, IBD CT abdomen pelvis showed Severe pulmonary fibrosis. Liver mildly irregular in contour. Severe diffuse hyperemia and inflammatory change involving the entire colon. On admission WBC 17.2??>17.5 Hemoglobin stable at 12.8 Plan: ? Hepatitis panel ordered ? Liver ultrasound ordered ? Stool studies pending including WBC, culture, calprotectin, C. difficile ? Pending blood and urine cultures ? Avoiding NSAIDs ? Discontinued Zosyn 3.375 g IV Q8 hourly from [05/17 - 05/18] ? Started on ciprofloxacin 400 Mg IV twice daily on [05/18? ? Started on metronidazole 500 Mg IV every 8 hourly on [05/18? ? GI, Dr. Lopez consulted and closely following the case. Appreciate recommendations. Community-acquired pneumonia Severe pulmonary fibrosis COPD on 3.5 L home oxygen Patient denies any symptoms of shortness of breath or cough. On exam patient has diffuse crackles and wheeze throughout all lung diallo. Chest x-ray showed extensive bilateral consolidation more in the middle lobes. PSI/PORT : 48 points ; Risk class II Plan: ? Continue DuoNebs every 8 hourly ? Continue metronidazole and ciprofloxacin Primary hypertension Currently blood pressure 152/78 From home medication reconciliation, patient appears to be no longer taking clonidine. Plan: ? Will continue to monitor blood pressure while in hospital. ? May consider starting antihypertensives based on blood pressure trend Depression Home medication fluoxetine 40mg po BID and Quetiapine 400 mg po Qday. Plan: ? Held fluoxetine due to concern of diarrhea ? Resume home medication quetiapine 400 Mg at bedtime Health maintenance: Disposition: Pending stool studies Diet: Clear liquid Lines: pIVs GI Prophylaxis: Pantoprazole IV Thrombo Prophylaxis: SCDs Code status: FULL CODE Plan of care discussed with Attending Dr. Crump and PGY2 Dr. Marcia Patino MD PGY 1 Attending Provider Attestation/Addendum I reviewed labs, imaging, EKG, home medications and prior available records. Face to face evaluation was performed by me. I have personally examined the patient and discussed assessment and plan with the IM team. I reviewed the resident note and agree with the plan with exceptions as below. Abdominal pain, periumbilical Infectious colitis Leukocytosis Pulmonary fibrosis Primary liver disease On chronic methadone Changed antibiotics to ciprofloxacin/Flagyl Sent stool studies and C. difficile test Trend WBC: Slowly downtrending IV fluids Continue oxygen as needed Ordered ultrasound of the liver and hepatitis panel Consulted GI Started clear liquid diet Confirmed methadone dose
--- NOTE | 2024-05-18 09:54 | PC.SS ---
Follow up note: Stool cultures pending. Pt will return home upon d.c.
--- NOTE | 2024-05-18 10:02 | XR_ITS ---
Examination: Abdomen sonogram, Limited Date and time of exam: May 18, 2024 1258 hrs. Indications: Epigastric pain nausea beginning 2 days ago Technique: Real-time hernandez scale transabdominal sonographic images of the upper abdomen obtained. Findings: Gallbladder wall 0.5 cm with probable edema in the gallbladder wall Common bile duct 0.5 cm Pancreatic head 2.3 cm Liver 14.9 cm fatty infiltration trace free fluid Normal hepatopedal portal venous flow Patent IVC Impression: Recommend HIDA scan or MRCP follow-up to exclude cholecystitis Negative for common bile duct stones Findings liver Trace ascites
[2024-05-18 10:32] LABS: Collection Type, Urine Clean Catch
[2024-05-18] MEDS: metroNIDAZOLE/NS 500 MG IVPB 500 MG/100 ML BAG 200 MG IV ×2 (10:38→21:54)
[2024-05-18 10:40] LABS: Bilirubin,Urine Negative (Negative); Blood,Urine Negative (Negative); Clarity,Urine Clear (Clear/Hazy); Color,Urine Yellow (Lt Yel-Yel); Glucose, Urine Negative (Negative); Ketones,Urine 1+ (Negative); Leukocyte Esterase,Urine Negative (Negative); Nitrite,Urine Negative (Negative); Protein,Urine 1+ (Neg - Trace); RBC,Urine 1 /hpf (0-3); Specific Gravity,Urine 1.049 (1.001-1.035); Squamous Epithelial Cell,Urine 1 /hpf (0-5); Urobilinogen,Urine Negative mg/dL (0.0-1.0); WBC,Urine 2 /hpf (0-5)
[2024-05-18 11:03] LABS: Amphetamine/Methamp Scrn,U Negative (Negative); Barbiturate Screen,Urine Negative (Negative); Benzodiazepines Screen,Urine Negative (Negative); Benzoylecgonine Screen, Ur Negative (Negative); Fentanyl Screen,Urine Negative (Negative); Opiate Screen,Urine Positive (Negative); THC Screen,Urine Negative (Negative)
[2024-05-18 11:08] LABS: Hepatitis A Antibody IgM Non Reactive (Non React); Hepatitis B Core Antibody IgM Non Reactive (Non React); Hepatitis B Surface Antigen Non Reactive (Non React); Hepatitis C Antibody Non Reactive (Non React)
[2024-05-18] MEDS: SODIUM CHLORIDE 0.9% 1000 ML 1,000 ML 75 ML IV (11:09)
[2024-05-18] MEDS: CIPROFLOXACIN/D5w 400 MG IVPB 400 MG/200 ML BAG 200 MG IV ×2 (11:09→20:22)
--- NOTE | 2024-05-18 12:55 | PC.SS ---
SS met with patient regarding her d/c plan.? Pt is alert/oriented.? Pt was admitted for Abdominal Pain.? Pt confirmed demographic and contact information is correct on facesheet.? patient's physical address is [address] [place], [place] [address]on jesus [address]berto in [place].? Pt resides with .? Pt ambulates using a rollator walker and has a wheelchair.? Pt utilizes 3 liters of O2 at home and has small O2 tanks.? Pt is ok with all ADLs.? Pt named her son, Steve Mabry medical decision maker if he is unable.? Pt goes to the methadon clinic once a month at [facility] in [place], phone# [phone].? SS provided verbal choices for d/c to home or SNF.? Patient?s choice is to return home upon d/c.? Pt does not have an advance directive, SS offered, and pt declined.? Pt states she is not diabetic and not on dialysis.? ?Pt followed up with PCP 1 week ago.?? D/C plan:? Return home Next of Kin:? Steve Mabry, son, phone# [phone] PCP:? Dr. Riley Hess form [facility] Address:? Correct on facesheet
[2024-05-18] MEDS: METHADONE PO (13:01)
[2024-05-18] MEDS: QUEtiapine FUMARATE 100 MG TABLET 400 MG PO (20:22)
[2024-05-18] MEDS: MORPHINE SULF INJ 10 MG/ML VIAL IVP (20:51)
--- NOTE | 2024-05-18 21:45 | ESPR_ITS ---
Documentation for date of: 05/18/24 Subjective Subjective Interval history: Patient evaluated Still has diarrhea Stool culture and sensitivities pending Stool for C. difficile pending Exam Vital Signs Temp Pulse Resp BP Pulse Ox O2 Del Method O2 Flow Rate 97.7 F 87 17 152/94 H 96 Nasal Cannula 3 05/18/24 20:00 05/18/24 20:00 05/18/24 20:00 05/18/24 20:00 05/18/24 20:00 05/18/24 20:00 05/18/24 20:00 Objective Labs 05/18/24 05:16 05/18/24 05:16 Labs: Laboratory Results - last 24 hr 05/17/24 05/18/24 05/18/24 22:25 05:16 05:24 WBC 17.5 H RBC 4.89 Hgb 12.8 Hct 41.3 MCV 85 MCH 26.2 MCHC 31.0 RDW Std Deviation 44.2 Plt Count 266 Neut % (Auto) 85 H Lymph % (Auto) 6 L [place] % (Auto) 7 Eos % (Auto) 1 Baso % (Auto) 0 Neut # (Auto) 14.8 H Lymph # (Auto) 1.1 [place] # (Auto) 1.3 H Eos # (Auto) 0.1 Baso # (Auto) 0.1 Immature Gran # (Auto) 0.08 H Absolute Nucleated RBC 0.00 Immature Gran % 1 H Nucleated RBC % 0 ESR 56 H Sodium 140 Potassium 4.2 Chloride 103 Carbon Dioxide 30.7 Anion Gap 6 L BUN 12 Creatinine 0.7 Estim Creat Clear Calc 74.7 eGFR > 60 BUN/Creatinine Ratio 17 Glucose 103 Calculated Osmolality 279 Calcium 8.5 Corrected Calcium 9.1 Phosphorus 3.0 Magnesium 1.7 Total Bilirubin 0.2 L AST 18 ALT 16 Alkaline Phosphatase 90 C-Reactive Prot, Quant 13.1 H Total Protein 6.1 Albumin 3.3 L Globulin 2.8 Albumin/Globulin Ratio 1.2 Ur Collection Type Urine Color Urine Clarity Urine pH Ur Specific [place] Urine Protein Urine Glucose (UA) Urine Ketones Urine Blood Urine Nitrite Urine Bilirubin Urine Urobilinogen (Auto) Ur Leukocyte Esterase Urine RBC Urine WBC Ur Squamous Epith Cells Urine Bacteria Stool for White Cells Negative Stl Giardia Antigen Urine Opiates Screen Urine Fentanyl Screen Ur Barbiturates Screen U Amphetamin/Meth Scrn U Benzodiazepines Scrn U Cocaine Metab Screen U Marijuana (THC) Screen Hepatitis A IgM Ab Non Reactive Hep Bs Antigen Non Reactive Hep B Core IgM Ab Non Reactive Hepatitis C Antibody Non Reactive 05/18/24 05/18/24 05:24 10:00 WBC RBC Hgb Hct MCV MCH MCHC RDW Std Deviation Plt Count Neut % (Auto) Lymph % (Auto) [place] % (Auto) Eos % (Auto) Baso % (Auto) Neut # (Auto) Lymph # (Auto) [place] # (Auto) Eos # (Auto) Baso # (Auto) Immature Gran # (Auto) Absolute Nucleated RBC Immature Gran % Nucleated RBC % ESR Sodium Potassium Chloride Carbon Dioxide Anion Gap BUN Creatinine Estim Creat Clear Calc eGFR BUN/Creatinine Ratio Glucose Calculated Osmolality Calcium Corrected Calcium Phosphorus Magnesium Total Bilirubin AST ALT Alkaline Phosphatase C-Reactive Prot, Quant Total Protein Albumin Globulin Albumin/Globulin Ratio Ur Collection Type Clean Catch Urine Color Yellow Urine Clarity Clear Urine pH 6.0 Ur Specific [place] 1.049 H Urine Protein 1+ A Urine Glucose (UA) Negative Urine Ketones 1+ A Urine Blood Negative Urine Nitrite Negative Urine Bilirubin Negative Urine Urobilinogen (Auto) Negative Ur Leukocyte Esterase Negative Urine RBC 1 Urine WBC 2 Ur Squamous Epith Cells 1 Urine Bacteria None Stool for White Cells Cancelled Stl Giardia Antigen Cancelled Urine Opiates Screen Positive A Urine Fentanyl Screen Negative Ur Barbiturates Screen Negative U Amphetamin/Meth Scrn Negative U Benzodiazepines Scrn Negative U Cocaine Metab Screen Negative U Marijuana (THC) Screen Negative Hepatitis A IgM Ab Hep Bs Antigen Hep B Core IgM Ab Hepatitis C Antibody Impressions Impression: Infectious versus inflammatory enterocolitis Waiting for C. difficile and culture and sensitivity results from the stool analysis before considering colonoscopy with biopsies Assessment & Plan A&P Narrative # Pain abdomen with bloody diarrhea abnormal CT scan of the abdomen pelvis differential diagnosis include infectious colitis versus inflammatory bowel disease Plan stool for Gram stain stool culture and sensitivity stool C. difficile CRP ANCA antibody Fecal calprotectin If above negative we will consider fiberoptic colonoscopy with possible biopsies Agree with broad-spectrum antibiotics Thank you very much for the opportunity to participate in the care of this patient Time Spent With Patient Time: Total time spent is greater than 50% in coordination of care (as documented) at patient's floor/unit and/or counseling patient:
[2024-05-19] VITALS (10 sets, daily range): BP systolic 131–148; BP diastolic 74–101; PULSE 80–102; RESP 15–97; TEMP 36.1–36.6; O2SAT 93–100; BMI 26.4
[2024-05-19] MEDS: SODIUM CHLORIDE 0.9% 1000 ML 1,000 ML 75 ML IV (00:48)
[2024-05-19] MEDS: metroNIDAZOLE/NS 500 MG IVPB 500 MG/100 ML BAG 200 MG IV ×3 (05:21→21:05)
[2024-05-19 05:46] LABS: Basophils # (Auto) 0.1 Thou/mm3 (0.0-0.2); Basophils % (Auto) 0 % (0-2.5); Eosinophils # (Auto) 0.2 Thou/mm3 (0.0-0.5); Eosinophils % (Auto) 1 % (0-10); Hematocrit 37.1 % (36.0-46.0); Hemoglobin 11.7 g/dL (12.0-16.0); Immature Granulocytes % (Auto) 1 % (0-0); Immature Granulocytes Auto 0.11 Thou/mm3 (0.00-0.00); Lymphocytes # (Auto) 1.5 Thou/mm3 (1.0-4.8); Lymphocytes % (Auto) 10 % (10-50); Mean Corpuscular HGB Conc 31.5 g/dl (31.0-37.0); Mean Corpuscular Hemoglobin 26.5 pg (25.0-35.0); Mean Corpuscular Volume 84 fL (80-100); Monocytes # (Auto) 1.1 Thou/mm3 (0.0-0.8); Monocytes % (Auto) 8 % (0-12); Neutrophils # (Auto) 11.7 Thou/mm3 (1.8-7.7); Neutrophils % (Auto) 80 % (37-80); Nucleated Red Blood Cell % 0 /100 WBC (0); Platelet Count 224 Thou/mm3 (140-440); RDW Standard Deviation 44.2 fL (36.4-46.3); Red Blood Count 4.42 Miln/mm3 (4.00-5.20); White Blood Count 14.6 Thou/mm3 (3.6-11.0)
[2024-05-19 06:22] LABS: Alanine Aminotransferase 10 U/L (10-49); Albumin, Serum 2.6 gm/dL (3.5-5.0); Albumin/Globulin Ratio 1.1 (1.2-2.2); Alkaline Phosphatase 71 U/L (46-116); Anion Gap 5 (7-16); Aspartate Amino Transferase < 10 U/L (0-34); BUN/Creatinine Ratio 17 Ratio (12-20); Bilirubin,Total 0.2 mg/dL (0.3-1.2); Blood Urea Nitrogen 10 mg/dL (9-23); Calcium 7.9 mg/dL (8.3-10.6); Carbon Dioxide 29.6 mMol/L (20.0-31.0); Chloride 103 mMol/L (98-107); Creatinine (Component) 0.6 mg/dL (0.6-1.3); Estimated Creatinine Clearance 87.1 mL/min (>60); Globulin 2.3 gm/dL (2.3-3.5); Glucose 90 mg/dL (74-106); Magnesium 1.6 mg/dL (1.6-2.6); Osmolality,Calculated 274 (275-295); Phosphorous 2.3 mg/dL (2.4-5.1); Potassium 3.8 mMol/L (3.4-5.1); Sodium 138 mMol/L (136-145); Total Protein 4.9 gm/dL (5.7-8.2); eGFR > 60 See Note
[2024-05-19] MEDS: ALBUTEROL/IPRATROPIUM (Duoneb) RT SOL 3 ML NEBU INH ×3 (07:20→22:22)
[2024-05-19] MEDS: PANTOPRAZOLE INJ 40 MG VIAL IVP (09:19)
[2024-05-19] MEDS: LACTOBACILLUS RHAMNOSUS 1 CAP PO ×2 (09:23→20:09)
[2024-05-19] MEDS: NAPH,KPH MBDB 1 PACKET (1.5 GM) PO (09:24)
[2024-05-19] MEDS: CIPROFLOXACIN/D5w 400 MG IVPB 400 MG/200 ML BAG 200 MG IV ×2 (09:25→20:09)
[2024-05-19] MEDS: METHADONE PO (09:57)
[2024-05-19 10:14] LABS: Clostridium Difficile PCR Negative (Negative)
--- NOTE | 2024-05-19 10:48 | ESPR_ITS ---
Documentation for date of: 05/19/24 Subjective Subjective Interval history: Patient's is Micronesian-speaking and interaction facilitated by registered healthcare preparation plant supervisor. Patient was seen and examined at bedside this AM. Patient's son Steve was at bedside. No acute exents overnight. Patient tolerating clear liquid diet, adequate urine output and mentation is at baseline. Patient complains of nausea, generalized 10/10 abdominal pain cramping in nature with minimal relief by IV morphine. Improvement of diarrhea with only 3 episodes in the past 24 hours, still has bright red SD bleed. Liver ultrasound significant for fatty liver with trace free fluid. C. difficile PCR negative Exam Vital Signs Temp Pulse Resp BP Pulse Ox O2 Del Method O2 Flow Rate 97.9 F 87 15 139/77 H 100 Nasal Cannula 1 05/19/24 04:00 05/19/24 07:22 05/19/24 07:22 05/19/24 04:00 05/19/24 07:22 05/19/24 04:00 05/19/24 07:22 Narrative Exam Constitutional Alert, oriented x 3 and in mild distress. Middle-age female HEENT Vision grossly intact. Patent nares. Trachea midline Respiratory Chest normal on inspection and clear auscultation bilaterally Cardiovascular S1 and S2 audible, RRR. No murmurs carotid bruit. No gross JVD. Abdominal Soft and generalized tenderness to palpation in all quadrants with rebound tenderness but no guarding, bowel sounds present. Genitourinary No bladder tenderness, no flank pain. Normal to palpation Musculoskeletal Extremities tone within normal limits. No LE edema. Neurological CN II - XII grossly intact. Extremity motor and sensation grossly intact. Skin Warm, dry and intact. No apparent lesions. Psychiatric Patient has good affect, is cooperative Objective Labs 05/19/24 05:06 05/19/24 05:06 Labs: Laboratory Results - last 24 hr 05/18/24 05/18/24 05/19/24 05:16 10:00 05:06 WBC 14.6 H RBC 4.42 Hgb 11.7 L Hct 37.1 MCV 84 MCH 26.5 MCHC 31.5 RDW Std Deviation 44.2 Plt Count 224 D Neut % (Auto) 80 Lymph % (Auto) 10 [place] % (Auto) 8 Eos % (Auto) 1 Baso % (Auto) 0 Neut # (Auto) 11.7 H Lymph # (Auto) 1.5 [place] # (Auto) 1.1 H Eos # (Auto) 0.2 Baso # (Auto) 0.1 Immature Gran # (Auto) 0.11 H Absolute Nucleated RBC 0.00 Immature Gran % 1 H Nucleated RBC % 0 Sodium 138 Potassium 3.8 Chloride 103 Carbon Dioxide 29.6 Anion Gap 5 L BUN 10 Creatinine 0.6 Estim Creat Clear Calc 87.1 eGFR > 60 BUN/Creatinine Ratio 17 Glucose 90 Calculated Osmolality 274 L Calcium 7.9 L Corrected Calcium 9.0 Phosphorus 2.3 L Magnesium 1.6 Total Bilirubin 0.2 L AST < 10 ALT 10 Alkaline Phosphatase 71 D Total Protein 4.9 L Albumin 2.6 L D Globulin 2.3 Albumin/Globulin Ratio 1.1 L Ur Collection Type Clean Catch Urine Color Yellow Urine Clarity Clear Urine pH 6.0 Ur Specific [place] 1.049 H Urine Protein 1+ A Urine Glucose (UA) Negative Urine Ketones 1+ A Urine Blood Negative Urine Nitrite Negative Urine Bilirubin Negative Urine Urobilinogen (Auto) Negative Ur Leukocyte Esterase Negative Urine RBC 1 Urine WBC 2 Ur Squamous Epith Cells 1 Urine Bacteria None Stl C. diff Tox B Gene Negative Urine Opiates Screen Positive A Urine Fentanyl Screen Negative Ur Barbiturates Screen Negative U Amphetamin/Meth Scrn Negative U Benzodiazepines Scrn Negative U Cocaine Metab Screen Negative U Marijuana (THC) Screen Negative Hepatitis A IgM Ab Non Reactive Hep Bs Antigen Non Reactive Hep B Core IgM Ab Non Reactive Hepatitis C Antibody Non Reactive Quality Measures Quality Measures none Assessment & Plan Assessment Current Active Medications: Generic Name Dose Route Start Last Admin Trade Name Freq PRN Reason Stop Dose Admin Acetaminophen 650 mg 05/18/24 15:59 Acetaminophen 325 Mg Tablet PO 06/16/24 19:57 Q6H PRN Fever >100.4 or pain 1-6 Hydrocodone Bitart/Acetaminophen 1 tab 05/17/24 19:58 05/18/24 19:36 Hydrocodone/Apap 10/325 Tab PO 05/22/24 19:57 1 tab Q4HR PRN Administration PAIN SCALE 7-10 (Severe Albuterol/Ipratropium 3 ml 05/18/24 23:00 05/19/24 07:20 Albuterol/Ipratropium (Duoneb) Rt Carmen 3 Ml Nebu INH 06/17/24 22:59 3 ml Q8HRRT BRIGIDO Administration Methadone 109 Mg 0 ea 05/19/24 09:45 05/19/24 09:57 Solution PO 06/18/24 09:44 1 bottle QDAY BRIGIDO Administration Protocol Sodium Chloride 1,000 mls @ 75 mls/hr 05/17/24 20:15 05/19/24 00:48 Ns IV 06/16/24 20:14 75 mls/hr .[id number] BRIGIDO Administration Ciprofloxacin/Dextrose 400 mg in 200 mls @ 200 mls/hr 05/18/24 10:04 05/19/24 09:25 Cipro Ivpb IV 05/25/24 10:03 200 mls/hr Q12HR BRIGIDO Administration Metronidazole 500 mg in 100 mls @ 200 mls/hr 05/18/24 10:05 05/19/24 06:08 Flagyl 500 Mg Iv IV 05/25/24 10:04 Infused Q8HR BRIGIDO Infusion Lactobacillus Rhamnosus 1 cap 05/19/24 09:00 05/19/24 09:23 Lactobacillus Rhamnosus 1 Cap PO 06/18/24 08:59 1 cap BID BRIGIDO Administration Ondansetron HCl 4 mg 05/17/24 19:58 Ondansetron Inj 2 Mg/Ml Inj 2 Ml IV 06/16/24 19:57 Q6H PRN NAUSEA OR VOMITING Protocol Pantoprazole Sodium 40 mg 05/17/24 20:15 05/19/24 09:19 Pantoprazole Inj 40 Mg Vial IVP 06/16/24 20:14 40 mg QDAY BRIGIDO Administration Quetiapine Fumarate 400 mg 05/18/24 21:00 05/18/24 20:22 Quetiapine Fumarate 100 Mg Tablet PO 06/17/24 20:59 400 mg HS BRIGIDO Administration Plan In summary: 58-year-old female with PMHx of COPD on 3 L home oxygen, HTN, and depression who presented with worsening abdominal pain, diarrhea with bright red SD bleed and admitted for workup and management of abdominal pain and diarrhea. GI bleed for investigation, likely lower Diffuse colitis Diarrhea for Investigation Abdominal pain Leukocytosis Patient presented with 1 week of progressively worsening abdominal pain and watery diarrhea with occasional bright red blood. On exam patient has diffuse generalized tenderness to palpation of the abdomen with rebound tenderness but no guarding. DDx: Medication side effect, IBS, IBD CT abdomen pelvis showed Severe pulmonary fibrosis. Liver mildly irregular in contour. Severe diffuse hyperemia and inflammatory change involving the entire colon. On admission WBC 17.2??>14.6 Blood culture negative x 24 hours preliminary Hemoglobin stable at 12.8 C. difficile PCR negative Stool for WBCs negative Hepatitis panel negative Plan: ? Clear liquid diet ? ANCA studies pending ? Stool calprotectin, Giardia and norovirus pending ? Pending stool culture ? Avoiding NSAIDs ? D2 ciprofloxacin 400 Mg IV twice daily on [05/18? ? D2 metronidazole 500 Mg IV every 8 hourly on [05/18? ? GoLytely bowel prep ? For colonoscopy tomorrow once cleared as per GI recommendations. ? GI, Dr. Lopez consulted and closely following the case. Appreciate recommendations. Metabolic dysfunction associated steatohepatitis Liver ultrasound significant for fatty liver with trace free fluid. Plan: ? Recommend low-fat diet Community-acquired pneumonia Severe pulmonary fibrosis COPD on 3.5 L home oxygen Patient denies any symptoms of shortness of breath or cough. On exam patient has diffuse crackles and wheeze throughout all lung diallo. Chest x-ray showed extensive bilateral consolidation more in the middle lobes. PSI/PORT : 48 points ; Risk class II Plan: ? Continue DuoNebs every 8 hourly ? Continue metronidazole and ciprofloxacin Primary hypertension Currently blood pressure 152/78 From home medication reconciliation, patient appears to be no longer taking clonidine. Plan: ? Will continue to monitor blood pressure while in hospital. ? May consider starting antihypertensives based on blood pressure trend Depression Home medication fluoxetine 40mg po BID and Quetiapine 400 mg po Qday. Plan: ? Held fluoxetine due to concern of diarrhea ? Resume home medication quetiapine 400 Mg at bedtime Health maintenance: Disposition: Pending stool culture and ankle studies. GoLytely bowel prep and colonoscopy once clear. Diet: Clear liquid Lines: pIVs GI Prophylaxis: Pantoprazole IV Thrombo Prophylaxis: SCDs Code status: FULL CODE Plan of care discussed with Attending Dr. Crump and PGY2 Dr. Marcia Patino MD PGY 1 Attending Provider Attestation/Addendum I reviewed labs, imaging, EKG, home medications and prior available records. Face to face evaluation was performed by me. I have personally examined the patient and discussed assessment and plan with the IM team. I reviewed the resident note and agree with the plan with exceptions as below. Abdominal pain, periumbilical Infectious colitis Leukocytosis Pulmonary fibrosis Primary liver disease On chronic methadone Changed antibiotics to ciprofloxacin/Flagyl Sent stool studies and C. difficile test: C. difficile is negative. Trend WBC: Slowly downtrending IV fluids Continue oxygen as needed Ordered ultrasound of the liver and hepatitis panel: Hepatitis panel is negative. Ultrasound showed fatty liver disease Consulted GI: Send C. difficile is negative, recommended GoLytely and clear liquid diet for colonoscopy Started clear liquid diet Confirmed methadone dose and started her home dose:
[2024-05-19] MEDS: HYDROcodone/APAP 10/325 TAB PO (14:28)
[2024-05-19] MEDS: NA SU/NAHCO3/KC/PEG (Golytely) 4,000 ML BTL 4000 ML PO (14:29)
[2024-05-19] MEDS: QUEtiapine FUMARATE 100 MG TABLET 400 MG PO (20:09)
[2024-05-19] MEDS: MORPHINE SULF INJ 10 MG/ML VIAL 2 MG IVP (20:09)
--- NOTE | 2024-05-19 22:11 | PD.IMPROG ---
Documentation for date of: 05/19/24 Subjective Subjective Interval history: Patient evaluated C. difficile Toxin is negative Case discussed with internal medicine team Start [facility] colonoscopy a.m. Exam Vital Signs Temp Pulse Resp BP Pulse Ox O2 Del Method O2 Flow Rate 97.2 F 94 18 131/84 H 94 L Nasal Cannula 2 05/19/24 20:00 05/19/24 20:00 05/19/24 20:00 05/19/24 20:00 05/19/24 20:00 05/19/24 20:00 05/19/24 20:00 Objective Labs 05/19/24 05:06 05/19/24 05:06 Labs: Laboratory Results - last 24 hr 05/18/24 05/19/24 10:00 05:06 WBC 14.6 H RBC 4.42 Hgb 11.7 L Hct 37.1 MCV 84 MCH 26.5 MCHC 31.5 RDW Std Deviation 44.2 Plt Count 224 D Neut % (Auto) 80 Lymph % (Auto) 10 [place] % (Auto) 8 Eos % (Auto) 1 Baso % (Auto) 0 Neut # (Auto) 11.7 H Lymph # (Auto) 1.5 [place] # (Auto) 1.1 H Eos # (Auto) 0.2 Baso # (Auto) 0.1 Immature Gran # (Auto) 0.11 H Absolute Nucleated RBC 0.00 Immature Gran % 1 H Nucleated RBC % 0 Sodium 138 Potassium 3.8 Chloride 103 Carbon Dioxide 29.6 Anion Gap 5 L BUN 10 Creatinine 0.6 Estim Creat Clear Calc 87.1 eGFR > 60 BUN/Creatinine Ratio 17 Glucose 90 Calculated Osmolality 274 L Calcium 7.9 L Corrected Calcium 9.0 Phosphorus 2.3 L Magnesium 1.6 Total Bilirubin 0.2 L AST < 10 ALT 10 Alkaline Phosphatase 71 D Total Protein 4.9 L Albumin 2.6 L D Globulin 2.3 Albumin/Globulin Ratio 1.1 L Stl C. diff Tox B Gene Negative Impressions Impression: Abnormal CT scan of the abdomen and pelvis diarrhea schedule colonoscopy with biopsies consent obtained Assessment & Plan A&P Narrative # Pain abdomen with bloody diarrhea abnormal CT scan of the abdomen pelvis differential diagnosis include infectious colitis versus inflammatory bowel disease Plan stool for Gram stain stool culture and sensitivity stool C. difficile CRP ANCA antibody Fecal calprotectin If above negative we will consider fiberoptic colonoscopy with possible biopsies Agree with broad-spectrum antibiotics Thank you very much for the opportunity to participate in the care of this patient Time Spent With Patient Time: Total time spent is greater than 50% in coordination of care (as documented) at patient's floor/unit and/or counseling patient:
[2024-05-20] VITALS (10 sets, daily range): BP systolic 103–151; BP diastolic 69–97; PULSE 87–103; RESP 12–32; TEMP 36.2–36.6; O2SAT 92–100; BMI 28.3
[2024-05-20] MEDS: SODIUM CHLORIDE 0.9% 1000 ML 1,000 ML 75 ML IV ×2 (02:21→16:23)
[2024-05-20] MEDS: metroNIDAZOLE/NS 500 MG IVPB 500 MG/100 ML BAG 200 MG IV ×3 (05:10→22:21)
[2024-05-20 05:45] LABS: Basophils # (Auto) 0.1 Thou/mm3 (0.0-0.2); Basophils % (Auto) 0 % (0-2.5); Eosinophils # (Auto) 0.2 Thou/mm3 (0.0-0.5); Eosinophils % (Auto) 2 % (0-10); Hematocrit 33.5 % (36.0-46.0); Hemoglobin 10.4 g/dL (12.0-16.0); Immature Granulocytes % (Auto) 1 % (0-0); Immature Granulocytes Auto 0.09 Thou/mm3 (0.00-0.00); Lymphocytes # (Auto) 1.8 Thou/mm3 (1.0-4.8); Lymphocytes % (Auto) 16 % (10-50); Mean Corpuscular Hemoglobin 26.4 pg (25.0-35.0); Mean Corpuscular Volume 85 fL (80-100); Monocytes # (Auto) 0.9 Thou/mm3 (0.0-0.8); Monocytes % (Auto) 8 % (0-12); Neutrophils # (Auto) 8.3 Thou/mm3 (1.8-7.7); Neutrophils % (Auto) 73 % (37-80); Nucleated Red Blood Cell % 0 /100 WBC (0); Platelet Count 227 Thou/mm3 (140-440); RDW Standard Deviation 45.4 fL (36.4-46.3); Red Blood Count 3.94 Miln/mm3 (4.00-5.20); White Blood Count 11.4 Thou/mm3 (3.6-11.0)
[2024-05-20 06:21] LABS: Alanine Aminotransferase 7 U/L (10-49); Albumin, Serum 2.4 gm/dL (3.5-5.0); Albumin/Globulin Ratio 1.2 (1.2-2.2); Alkaline Phosphatase 62 U/L (46-116); Anion Gap 7 (7-16); Aspartate Amino Transferase < 10 U/L (0-34); BUN/Creatinine Ratio 13 Ratio (12-20); Bilirubin,Total 0.2 mg/dL (0.3-1.2); Blood Urea Nitrogen 8 mg/dL (9-23); Calcium 7.7 mg/dL (8.3-10.6); Carbon Dioxide 28.2 mMol/L (20.0-31.0); Chloride 105 mMol/L (98-107); Creatinine (Component) 0.6 mg/dL (0.6-1.3); Estimated Creatinine Clearance 90.2 mL/min (>60); Glucose 73 mg/dL (74-106); Magnesium 1.6 mg/dL (1.6-2.6); Osmolality,Calculated 276 (275-295); Phosphorous 2.9 mg/dL (2.4-5.1); Potassium 3.5 mMol/L (3.4-5.1); Sodium 140 mMol/L (136-145); Total Protein 4.4 gm/dL (5.7-8.2); eGFR > 60 See Note
[2024-05-20] MEDS: ALBUTEROL/IPRATROPIUM (Duoneb) RT SOL 3 ML NEBU INH ×3 (07:11→22:00)
[2024-05-20] MEDS: PANTOPRAZOLE INJ 40 MG VIAL IVP (09:05)
[2024-05-20] MEDS: CIPROFLOXACIN/D5w 400 MG IVPB 400 MG/200 ML BAG 200 MG IV ×2 (09:05→21:15)
[2024-05-20] MEDS: LACTOBACILLUS RHAMNOSUS 1 CAP PO (09:05)
[2024-05-20] MEDS: METHADONE PO (09:06)
[2024-05-20] MEDS: ONDANSETRON INJ 2 MG/ML INJ 2 ML 4 MG IV (09:14)
--- NOTE | 2024-05-20 10:16 | XR_ITS ---
Examination: Abdomen AP single view Technique: AP portable supine abdomen, single view Exam date and time: May 12, 2024 1020 hrs. Indications: Abdominal distention today. Findings: Prominent colonic ileus There are air distended small bowel loops No free air Prominent osteopenia Impression: Prominent colonic ileus
--- NOTE | 2024-05-20 10:31 | PD.RESPRO ---
Documentation for date of: 05/20/24 Subjective Subjective Interval history: Patient's is [place]-speaking and interaction facilitated by registered healthcare staff interpreter. Patient was seen and examined at bedside this AM. No acute exents overnight. Patient tolerating clear liquid diet, adequate urine output and mentation is at baseline. Patient complains of nausea, generalized 10/10 abdominal pain cramping in nature with minimal relief by IV morphine. This morning patient had worsening abdominal distention. AXR was ordered which showed severely dilated bowel loops. GoLytely put on hold. Fleet enema x 1 ordered GI, Dr. Lopez consulted. Recommended if no relief of abdominal distention biopsy, to place a rectal tube. Appreciate recommendations Exam Vital Signs Temp Pulse Resp BP Pulse Ox O2 Del Method O2 Flow Rate 97.3 F 88 18 103/78 96 Nasal Cannula 2 05/20/24 08:00 05/20/24 08:00 05/20/24 08:00 05/20/24 08:00 05/20/24 08:00 05/20/24 08:00 05/20/24 08:00 Narrative Exam Constitutional Alert, oriented x 3 and in mild distress. Middle-age female HEENT Vision grossly intact. Patent nares. Trachea midline Respiratory Chest normal on inspection and clear auscultation bilaterally Cardiovascular S1 and S2 audible, RRR. No murmurs carotid bruit. No gross JVD. Abdominal Rigid, distended and generalized tenderness to palpation in all quadrants, bowel sounds reduced. Genitourinary No bladder tenderness, no flank pain. Normal to palpation Musculoskeletal Extremities tone within normal limits. No LE edema. Neurological CN II - XII grossly intact. Extremity motor and sensation grossly intact. Skin Warm, dry and intact. No apparent lesions. Psychiatric Patient has good affect, is cooperative Objective Labs 05/20/24 04:55 05/20/24 04:55 Labs: Laboratory Results - last 24 hr 05/20/24 04:55 WBC 11.4 H RBC 3.94 L Hgb 10.4 L Hct 33.5 L MCV 85 MCH 26.4 MCHC 31.0 RDW Std Deviation 45.4 Plt Count 227 Neut % (Auto) 73 Lymph % (Auto) 16 [place] % (Auto) 8 Eos % (Auto) 2 Baso % (Auto) 0 Neut # (Auto) 8.3 H Lymph # (Auto) 1.8 [place] # (Auto) 0.9 H Eos # (Auto) 0.2 Baso # (Auto) 0.1 Immature Gran # (Auto) 0.09 H Absolute Nucleated RBC 0.00 Immature Gran % 1 H Nucleated RBC % 0 Sodium 140 Potassium 3.5 Chloride 105 Carbon Dioxide 28.2 Anion Gap 7 BUN 8 L Creatinine 0.6 Estim Creat Clear Calc 90.2 eGFR > 60 BUN/Creatinine Ratio 13 Glucose 73 L Calculated Osmolality 276 Calcium 7.7 L Corrected Calcium 9.0 Phosphorus 2.9 Magnesium 1.6 Total Bilirubin 0.2 L AST < 10 ALT 7 L Alkaline Phosphatase 62 Total Protein 4.4 L Albumin 2.4 L Globulin 2.0 L Albumin/Globulin Ratio 1.2 Quality Measures Quality Measures none Assessment & Plan Assessment Current Active Medications: Generic Name Dose Route Start Last Admin Trade Name Freq PRN Reason Stop Dose Admin Acetaminophen 650 mg 05/18/24 15:59 Acetaminophen 325 Mg Tablet PO 06/16/24 19:57 Q6H PRN Fever >100.4 or pain 1-6 Hydrocodone Bitart/Acetaminophen 1 tab 05/17/24 19:58 05/19/24 14:28 Hydrocodone/Apap 10/325 Tab PO 05/22/24 19:57 1 tab Q4HR PRN Administration PAIN SCALE 7-10 (Severe Albuterol/Ipratropium 3 ml 05/18/24 23:00 05/20/24 07:11 Albuterol/Ipratropium (Duoneb) Rt Carmen 3 Ml Nebu INH 06/17/24 22:59 3 ml Q8HRRT BRIGIDO Administration Methadone 109 Mg 0 ea 05/19/24 09:45 05/20/24 09:06 Solution PO 06/18/24 09:44 1 bottle QDAY BRIGIDO Administration Protocol Sodium Chloride 1,000 mls @ 75 mls/hr 05/17/24 20:15 05/20/24 02:21 Ns IV 06/16/24 20:14 75 mls/hr .[id number] BRIGIDO Administration Ciprofloxacin/Dextrose 400 mg in 200 mls @ 200 mls/hr 05/18/24 10:04 05/20/24 09:05 Cipro Ivpb IV 05/25/24 10:03 200 mls/hr Q12HR BRIGIDO Administration Metronidazole 500 mg in 100 mls @ 200 mls/hr 05/18/24 10:05 05/20/24 06:16 Flagyl 500 Mg Iv IV 05/25/24 10:04 Infused Q8HR BRIGIDO Infusion Lactobacillus Rhamnosus 1 cap 05/19/24 09:00 05/20/24 09:05 Lactobacillus Rhamnosus 1 Cap PO 06/18/24 08:59 1 cap BID BRIGIDO Administration Morphine Sulfate 2 mg 05/19/24 14:00 05/19/24 20:09 Morphine Sulf Inj 10 Mg/Ml Vial IVP 05/24/24 13:59 2 mg Q4HR PRN Administration BREAKTHROUGH PAIN Ondansetron HCl 4 mg 05/17/24 19:58 05/20/24 09:14 Ondansetron Inj 2 Mg/Ml Inj 2 Ml IV 06/16/24 19:57 4 mg Q6H PRN Administration NAUSEA OR VOMITING Protocol Pantoprazole Sodium 40 mg 05/17/24 20:15 05/20/24 09:05 Pantoprazole Inj 40 Mg Vial IVP 06/16/24 20:14 40 mg QDAY BRIGIDO Administration Quetiapine Fumarate 400 mg 05/18/24 21:00 05/19/24 20:09 Quetiapine Fumarate 100 Mg Tablet PO 06/17/24 20:59 400 mg HS BRIGIDO Administration Plan In summary: 58-year-old female with PMHx of COPD on 3 L home oxygen, HTN, and depression who presented with worsening abdominal pain, diarrhea with bright red ID bleed and admitted for workup and management of abdominal pain and diarrhea. GI bleed for investigation, likely lower Diffuse colitis Diarrhea for Investigation Abdominal pain Leukocytosis Patient presented with 1 week of progressively worsening abdominal pain and watery diarrhea with occasional bright red blood. On exam patient has diffuse generalized tenderness to palpation of the abdomen with rebound tenderness but no guarding. DDx: Medication side effect, IBS, IBD CT abdomen pelvis showed Severe pulmonary fibrosis. Liver mildly irregular in contour. Severe diffuse hyperemia and inflammatory change involving the entire colon. On admission WBC 17.2??>11.4 Blood culture negative x 48 hours preliminary Hemoglobin stable at 12.8 C. difficile PCR negative Stool for WBCs negative Hepatitis panel negative This morning patient had worsening abdominal distention. AXR was ordered which showed severely dilated bowel loops. GoLytely put on hold. Fleet enema x 1 ordered GI, Dr. Lopez consulted. Recommended if no relief of abdominal distention biopsy, to place a rectal tube. Appreciate recommendations Plan: ? Clear liquid diet ? ANCA studies pending ? Stool calprotectin, Giardia and norovirus pending ? Pending stool culture ? Avoiding NSAIDs ? D3 ciprofloxacin 400 Mg IV twice daily on [05/18? ? D3 metronidazole 500 Mg IV every 8 hourly on [05/18? ? GoLytely bowel prep on hold ? Fleet enema x 1. ? GI, Dr. Lopez consulted and closely following the case. Appreciate recommendations. Metabolic dysfunction associated steatohepatitis Liver ultrasound significant for fatty liver with trace free fluid. Plan: ? Recommend low-fat diet Community-acquired pneumonia Severe pulmonary fibrosis COPD on 3.5 L home oxygen Patient denies any symptoms of shortness of breath or cough. On exam patient has diffuse crackles and wheeze throughout all lung diallo. Chest x-ray showed extensive bilateral consolidation more in the middle lobes. PSI/PORT : 48 points ; Risk class II Plan: ? Continue DuoNebs every 8 hourly ? Continue metronidazole and ciprofloxacin Primary hypertension Currently blood pressure 152/78 From home medication reconciliation, patient appears to be no longer taking clonidine. Plan: ? Will continue to monitor blood pressure while in hospital. ? May consider starting antihypertensives based on blood pressure trend Depression Home medication fluoxetine 40mg po BID and Quetiapine 400 mg po Qday. Plan: ? Held fluoxetine due to concern of diarrhea ? Continue quetiapine 400 Mg at bedtime Health maintenance: Disposition: Pending stool culture. Possible colonoscopy today Diet: Clear liquid Lines: pIVs GI Prophylaxis: Pantoprazole IV Thrombo Prophylaxis: SCDs Code status: FULL CODE Plan of care discussed with Attending Dr. Crump and PGY2 Dr. Marcia Patino MD PGY 1 Attending Provider Attestation/Addendum I reviewed labs, imaging, EKG, home medications and prior available records. Face to face evaluation was performed by me. I have personally examined the patient and discussed assessment and plan with the IM team. I reviewed the resident note and agree with the plan with exceptions as below. Abdominal pain, periumbilical Infectious colitis Leukocytosis Pulmonary fibrosis Primary liver disease On chronic methadone Changed antibiotics to ciprofloxacin/Flagyl Sent stool studies and C. difficile test: C. difficile is negative. Stool for WBC showed no WBC. Trend WBC: Slowly downtrending She received IV fluids Continue oxygen as needed Ordered ultrasound of the liver and hepatitis panel: Hepatitis panel is negative. Ultrasound showed fatty liver disease Consulted GI: Send C. difficile is negative, recommended GoLytely and clear liquid diet for colonoscopy On 05/20: Patient had worsening abdominal distention. Ordered abdominal x-ray: Showed ileus pattern. Discussed with GI: Recommended Fleet enema. If patient does not pass a bowel movement then insert a rectal tube. May still do colonoscopy later. Discussed the plan with RN. Confirmed methadone dose and started her home dose
--- NOTE | 2024-05-20 11:35 | PC.SS ---
Follow up note: Colonoscopy today. Pt will return home upon dc.
--- NOTE | 2024-05-20 12:41 | PC.NURSE ---
Called to Dr. Crump, pt. was given fleet enema about an hour ago and pt. reports no gas and pain 10/10 in abdominal area. orders soap suds enema to try to relieve gas.
[2024-05-20] MEDS: HYDROcodone/APAP 10/325 TAB PO (14:26)
[2024-05-20] MEDS: METOCLOPRAMIDE INJ 5 MG/ML VIAL 2 ML 10 MG IVP (16:23)
[2024-05-20] MEDS: MORPHINE SULF INJ 10 MG/ML VIAL 2 MG IVP (18:01)
[2024-05-20] MEDS: QUEtiapine FUMARATE 100 MG TABLET 400 MG PO (21:15)
--- NOTE | 2024-05-20 22:32 | PD.IMPROG ---
Documentation for date of: 05/20/24 Subjective Subjective Interval history: GoLytely was held as patient was having a lot of abdominal distention KUB shows colonic distention Recommend to put a rectal tube in severe to make a difference Hold of the GoLytely Exam Vital Signs Temp Pulse Resp BP Pulse Ox O2 Del Method O2 Flow Rate 97.8 F 90 32 H 136/78 H 100 Nasal Cannula 1 05/20/24 19:58 05/20/24 22:00 05/20/24 22:00 05/20/24 19:58 05/20/24 22:00 05/20/24 19:58 05/20/24 22:00 Objective Labs 05/20/24 04:55 05/20/24 04:55 Labs: Laboratory Results - last 24 hr 05/20/24 04:55 WBC 11.4 H RBC 3.94 L Hgb 10.4 L Hct 33.5 L MCV 85 MCH 26.4 MCHC 31.0 RDW Std Deviation 45.4 Plt Count 227 Neut % (Auto) 73 Lymph % (Auto) 16 [place] % (Auto) 8 Eos % (Auto) 2 Baso % (Auto) 0 Neut # (Auto) 8.3 H Lymph # (Auto) 1.8 [place] # (Auto) 0.9 H Eos # (Auto) 0.2 Baso # (Auto) 0.1 Immature Gran # (Auto) 0.09 H Absolute Nucleated RBC 0.00 Immature Gran % 1 H Nucleated RBC % 0 Sodium 140 Potassium 3.5 Chloride 105 Carbon Dioxide 28.2 Anion Gap 7 BUN 8 L Creatinine 0.6 Estim Creat Clear Calc 90.2 eGFR > 60 BUN/Creatinine Ratio 13 Glucose 73 L Calculated Osmolality 276 Calcium 7.7 L Corrected Calcium 9.0 Phosphorus 2.9 Magnesium 1.6 Total Bilirubin 0.2 L AST < 10 ALT 7 L Alkaline Phosphatase 62 Total Protein 4.4 L Albumin 2.4 L Globulin 2.0 L Albumin/Globulin Ratio 1.2 Impressions Impression: Colonic dilatation with colonic pseudoobstruction Rectal tube Hold of the GoLytely Assessment & Plan A&P Narrative # Pain abdomen with bloody diarrhea abnormal CT scan of the abdomen pelvis differential diagnosis include infectious colitis versus inflammatory bowel disease Plan stool for Gram stain stool culture and sensitivity stool C. difficile CRP ANCA antibody Fecal calprotectin If above negative we will consider fiberoptic colonoscopy with possible biopsies Agree with broad-spectrum antibiotics Thank you very much for the opportunity to participate in the care of this patient Time Spent With Patient Time: Total time spent is greater than 50% in coordination of care (as documented) at patient's floor/unit and/or counseling patient:
[2024-05-21] VITALS (9 sets, daily range): BP systolic 118–140; BP diastolic 56–87; PULSE 84–92; RESP 14–22; TEMP 36.1–36.4; O2SAT 91–100; BMI 28.3; BMI 26.3
[2024-05-21] MEDS: metroNIDAZOLE/NS 500 MG IVPB 500 MG/100 ML BAG 200 MG IV ×3 (05:04→22:40)
[2024-05-21 06:05] LABS: Basophils # (Auto) 0.1 Thou/mm3 (0.0-0.2); Basophils % (Auto) 1 % (0-2.5); Eosinophils # (Auto) 0.2 Thou/mm3 (0.0-0.5); Eosinophils % (Auto) 3 % (0-10); Hematocrit 31.4 % (36.0-46.0); Hemoglobin 9.7 g/dL (12.0-16.0); Immature Granulocytes % (Auto) 1 % (0-0); Lymphocytes # (Auto) 1.7 Thou/mm3 (1.0-4.8); Lymphocytes % (Auto) 18 % (10-50); Mean Corpuscular HGB Conc 30.9 g/dl (31.0-37.0); Mean Corpuscular Hemoglobin 26.3 pg (25.0-35.0); Mean Corpuscular Volume 85 fL (80-100); Monocytes # (Auto) 0.7 Thou/mm3 (0.0-0.8); Monocytes % (Auto) 8 % (0-12); Neutrophils # (Auto) 6.4 Thou/mm3 (1.8-7.7); Neutrophils % (Auto) 70 % (37-80); Nucleated Red Blood Cell % 0 /100 WBC (0); Platelet Count 230 Thou/mm3 (140-440); RDW Standard Deviation 46.2 fL (36.4-46.3); Red Blood Count 3.69 Miln/mm3 (4.00-5.20); White Blood Count 9.2 Thou/mm3 (3.6-11.0)
[2024-05-21 06:30] LABS: Alanine Aminotransferase < 7 U/L (10-49); Albumin, Serum 2.4 gm/dL (3.5-5.0); Albumin/Globulin Ratio 1.2 (1.2-2.2); Alkaline Phosphatase 62 U/L (46-116); Anion Gap 6 (7-16); Aspartate Amino Transferase 18 U/L (0-34); BUN/Creatinine Ratio 9 Ratio (12-20); Bilirubin,Total < 0.2 mg/dL (0.3-1.2); Blood Urea Nitrogen 6 mg/dL (9-23); Calcium 7.6 mg/dL (8.3-10.6); Calcium (Corrected) 8.9 mg/dL (8.5-10.1); Carbon Dioxide 30.7 mMol/L (20.0-31.0); Chloride 107 mMol/L (98-107); Creatinine (Component) 0.7 mg/dL (0.6-1.3); Estimated Creatinine Clearance 77.3 mL/min (>60); Glucose 64 mg/dL (74-106); Magnesium 1.7 mg/dL (1.6-2.6); Osmolality,Calculated 282 (275-295); Phosphorous 2.7 mg/dL (2.4-5.1); Potassium 3.5 mMol/L (3.4-5.1); Sodium 144 mMol/L (136-145); Total Protein 4.4 gm/dL (5.7-8.2); eGFR > 60 See Note
[2024-05-21] MEDS: ALBUTEROL/IPRATROPIUM (Duoneb) RT SOL 3 ML NEBU INH ×3 (07:01→23:00)
[2024-05-21] MEDS: PANTOPRAZOLE INJ 40 MG VIAL IVP (08:05)
[2024-05-21] MEDS: CIPROFLOXACIN/D5w 400 MG IVPB 400 MG/200 ML BAG 200 MG IV ×2 (08:05→21:10)
[2024-05-21] MEDS: METHADONE PO (08:06)
[2024-05-21] MEDS: SODIUM CHLORIDE 0.9% 1000 ML 1,000 ML 75 ML IV (08:50)
--- NOTE | 2024-05-21 14:35 | ESPR_ITS ---
<Statement entered by Lizzy Spring MD - 05/22/24 02:48> Patient was seen and examined by me personally. I have directly supervised and reviewed the above documentation by the team resident and agree with its findings with any exceptions or additional findings as below. Plan of care was discussed with the attending, Dr. Langford. Patient is a 58-year-old female with past medical history of COPD on 3L home oxygen, hypertension, and depression who intially presented with worsening abdominal pain, diarrhea, and rectal bleed and was admitted for GI bleed workup and further management of possible colitis. Patient had been receiving metronidazole and ciprofloxacin. Stool studies including C. diff, stool WBCs, and stool culture had been negative this admission. Patient was planned for colonoscopy but due to abdominal distention and discomfort the GoLytely was placed on hold and rectal tube was inserted. Today simethicone was added for bloating. IV fluids were placed on hold due to bilateral hand swelling and the patient had been receiving IV fluids for 5 days. Will allow another day for decompression with GoLytely on hold. Lizzy Spring, PGY-2 Documentation for date of: 05/21/24 Subjective Subjective Interval history: Patient seen and examined by the bedside reports abdominal pain. On examination abdomen is distended, soft, diffusely tender. 05/20 rectal tube was installed 800 mL of watery stool excreted. Continues to receive antibiotics. Son at the bedside, was explained the mother's condition and the plan of care. He was given enough time to answer questions and they were answered fully. She reports taking prednisone due to lung condition, denies having chronic pain and taking medication for it. Son endorses hands edema. IV fluids is on hold for now. Exam Vital Signs Temp Pulse Resp BP Pulse Ox O2 Del Method O2 Flow Rate 97.0 F 85 17 140/87 H 94 L Nasal Cannula 1 05/21/24 12:05/21/24 12:05/21/24 12:05/21/24 12:05/21/24 12:05/21/24 12:05/21/24 12:00 Narrative Exam Physical Exam General: Awake and in no acute distress. Conversational and non-toxic appearing. HEENT: Normocephalic, atraumatic, mucous membranes moist. Heart: Regular rate and rhythm, no murmurs. Lungs: Clear to auscultation with no wheezing or crackles. Abdomen: Soft, distended, diffusely tender. ?No guarding or rebound tenderness. Neurologic: Alert and oriented x3, no gross neurological deficit, and patient able to move all 4 extremities. Extremities: Mild left hand edema. Skin: No rash or ecchymoses. Objective Labs 05/23/24 04:19 05/23/24 04:19 Labs: Laboratory Results - last 24 hr 05/21/24 04:28 WBC 9.2 RBC 3.69 L Hgb 9.7 L Hct 31.4 L MCV 85 MCH 26.3 MCHC 30.9 L RDW Std Deviation 46.2 Plt Count 230 Neut % (Auto) 70 Lymph % (Auto) 18 [place] % (Auto) 8 Eos % (Auto) 3 Baso % (Auto) 1 Neut # (Auto) 6.4 Lymph # (Auto) 1.7 [place] # (Auto) 0.7 Eos # (Auto) 0.2 Baso # (Auto) 0.1 Immature Gran # (Auto) 0.10 H Absolute Nucleated RBC 0.00 Immature Gran % 1 H Nucleated RBC % 0 Sodium 144 Potassium 3.5 Chloride 107 Carbon Dioxide 30.7 Anion Gap 6 L BUN 6 L Creatinine 0.7 Estim Creat Clear Calc 77.3 eGFR > 60 BUN/Creatinine Ratio 9 L Glucose 64 L Calculated Osmolality 282 Calcium 7.6 L Corrected Calcium 8.9 Phosphorus 2.7 Magnesium 1.7 Total Bilirubin < 0.2 L AST 18 ALT < 7 L Alkaline Phosphatase 62 Total Protein 4.4 L Albumin 2.4 L Globulin 2.0 L Albumin/Globulin Ratio 1.2 Quality Measures Quality Measures VTE prophylaxis Assessment & Plan Assessment Current Active Medications: Generic Name Dose Route Start Last Admin Trade Name Freq PRN Reason Stop Dose Admin Acetaminophen 650 mg 05/18/24 15:59 Acetaminophen 325 Mg Tablet PO 06/16/24 19:57 Q6H PRN Fever >100.4 or pain 1-6 Hydrocodone Bitart/Acetaminophen 1 tab 05/17/24 19:58 05/20/24 14:26 Hydrocodone/Apap 10/325 Tab PO 05/22/24 19:57 1 tab Q4HR PRN Administration PAIN SCALE 7-10 (Severe Albuterol/Ipratropium 3 ml 05/18/24 23:00 05/21/24 07:01 Albuterol/Ipratropium (Duoneb) Rt Carmen 3 Ml Nebu INH 06/17/24 22:59 3 ml Q8HRRT BRIGIDO Administration Methadone 109 Mg 0 ea 05/19/24 09:45 05/21/24 08:06 Solution PO 06/18/24 09:44 109 bottle QDAY BRIGIDO Administration Protocol Sodium Chloride 1,000 mls @ 75 mls/hr 05/17/24 20:15 05/21/24 08:50 Ns IV 06/16/24 20:14 75 mls/hr .[id number] BRIGIDO Administration Ciprofloxacin/Dextrose 400 mg in 200 mls @ 200 mls/hr 05/18/24 10:04 05/21/24 08:05 Cipro Ivpb IV 05/25/24 10:03 200 mls/hr Q12HR BRIGIDO Administration Metronidazole 500 mg in 100 mls @ 200 mls/hr 05/18/24 10:05 05/21/24 13:43 Flagyl 500 Mg Iv IV 05/25/24 10:04 200 mls/hr Q8HR BRIGIDO Administration Morphine Sulfate 2 mg 05/19/24 14:00 05/20/24 18:01 Morphine Sulf Inj 10 Mg/Ml Vial IVP 05/24/24 13:59 2 mg Q4HR PRN Administration BREAKTHROUGH PAIN Ondansetron HCl 4 mg 05/17/24 19:58 05/20/24 09:14 Ondansetron Inj 2 Mg/Ml Inj 2 Ml IV 06/16/24 19:57 4 mg Q6H PRN Administration NAUSEA OR VOMITING Protocol Pantoprazole Sodium 40 mg 05/17/24 20:15 05/21/24 08:05 Pantoprazole Inj 40 Mg Vial IVP 06/16/24 20:14 40 mg QDAY BRIGIDO Administration Quetiapine Fumarate 400 mg 05/18/24 21:00 05/20/24 21:15 Quetiapine Fumarate 100 Mg Tablet PO 06/17/24 20:59 400 mg HS BRIGIDO Administration Plan In summary: 58-year-old female with PMHx of COPD on 3 L home oxygen, HTN, and depression who presented with worsening abdominal pain, diarrhea with bright red [place] bleed and admitted for workup and management of abdominal pain and diarrhea. Diffuse colitis, possible GI infection GI bleed rule out Ileus ruled out Leukocytosis, resolved Patient presented with 1 week of progressively worsening abdominal pain and watery diarrhea with occasional bright red blood. On exam patient has diffuse generalized tenderness to palpation of the abdomen with rebound tenderness but no guarding. DDx: Medication side effect, IBS, IBD CT abdomen pelvis showed Severe pulmonary fibrosis. Liver mildly irregular in contour. Severe diffuse hyperemia and inflammatory change involving the entire colon. On admission WBC 17.2??>11.4 Blood culture negative x 48 hours preliminary Hemoglobin stable at 12.8 C. difficile PCR negative Stool for WBCs negative Hepatitis panel negative Stool culture negative 05/21: Patient had worsening abdominal distention. AXR was ordered which showed severely dilated bowel loops. GoLytely put on hold. Fleet enema x 1 ordered GI, Dr. Lopez consulted. Rectal tube was placed. Plan: ? Clear liquid diet ? ANCA studies pending ? Stool calprotectin, Giardia and norovirus pending ? Avoiding NSAIDs ? ciprofloxacin 400 Mg IV twice daily on [05/18? ? metronidazole 500 Mg IV every 8 hourly on [05/18? ? GoLytely bowel prep on hold - Simethicone 80 mg TID ? GI, Dr. Lopez consulted and closely following the case. Appreciate recommendations. Metabolic dysfunction associated steatohepatitis Liver ultrasound significant for fatty liver with trace free fluid. Plan: ? Recommend low-fat diet Community-acquired pneumonia Severe pulmonary fibrosis COPD on 3.5 L home oxygen Patient denies any symptoms of shortness of breath or cough. On exam patient has diffuse crackles and wheeze throughout all lung diallo. Chest x-ray showed extensive bilateral consolidation more in the middle lobes. PSI/PORT : 48 points ; Risk class II Patient reports taking prednisone at home. Plan: ? Continue DuoNebs every 8 hourly ? Continue metronidazole and ciprofloxacin Primary hypertension 05/21 BP 140/87 From home medication reconciliation, patient appears to be no longer taking clonidine. Plan: ? Will continue to monitor blood pressure while in hospital. ? May consider starting antihypertensives based on blood pressure trend Depression Home medication fluoxetine 40mg po BID and Quetiapine 400 mg po Qday. Plan: ? Fluoxetine on hold due to concern of diarrhea ? Continue quetiapine 400 Mg at bedtime Health maintenance: Disposition: Medsurg Diet: Clear liquid Lines: pIVs GI Prophylaxis: Pantoprazole IV Thrombo Prophylaxis: SCDs Code status: FULL CODE Plan of care discussed with attending Dr. Langford, PGY-[address] Clementine Irizarry MD, PGY 1. Attending Provider Attestation/Addendum I have examined the patient, reviewed labs and imaging findings, discussed the case with the resident(s), and reviewed entered orders. I agree with the plan of care as outlined in this note. Dr. Primitivo MD
[2024-05-21] MEDS: HYDROcodone/APAP 5/325 TABLET 1 TAB PO ×2 (15:43→21:19)
--- NOTE | 2024-05-21 18:16 | PC.NURSE ---
This nurse notified Dr Irizarry that patient rectal tube had accumulated 50ml throughout the day, and patient was complaining of abdominal pain. Dr will see patient at bedside.
[2024-05-21] MEDS: QUEtiapine FUMARATE 100 MG TABLET 400 MG PO (21:10)
[2024-05-21] MEDS: SIMETHICONE 80 MG CHEW PO (21:10)
--- NOTE | 2024-05-21 21:55 | PD.IMPROG ---
Documentation for date of: 05/21/24 Subjective Subjective Interval history: Abdominal distention much less Rectal tube has been helpful Liquidy stool coming through Will give another day for the colon to decompress Will order another KUB to compare if the colonic distention is still existent although clinical exam shows it is much improved Patient still needs a colonoscopy however she is not tolerating the GoLytely Exam Vital Signs Temp Pulse Resp BP Pulse Ox O2 Del Method O2 Flow Rate 97.2 F 88 21 H 138/76 H 91 L Nasal Cannula 3 05/21/24 20:00 05/21/24 20:00 05/21/24 20:00 05/21/24 20:00 05/21/24 20:00 05/21/24 16:00 05/21/24 16:00 Objective Labs 05/21/24 04:28 05/21/24 04:28 Labs: Laboratory Results - last 24 hr 05/21/24 04:28 WBC 9.2 RBC 3.69 L Hgb 9.7 L Hct 31.4 L MCV 85 MCH 26.3 MCHC 30.9 L RDW Std Deviation 46.2 Plt Count 230 Neut % (Auto) 70 Lymph % (Auto) 18 [place] % (Auto) 8 Eos % (Auto) 3 Baso % (Auto) 1 Neut # (Auto) 6.4 Lymph # (Auto) 1.7 [place] # (Auto) 0.7 Eos # (Auto) 0.2 Baso # (Auto) 0.1 Immature Gran # (Auto) 0.10 H Absolute Nucleated RBC 0.00 Immature Gran % 1 H Nucleated RBC % 0 Sodium 144 Potassium 3.5 Chloride 107 Carbon Dioxide 30.7 Anion Gap 6 L BUN 6 L Creatinine 0.7 Estim Creat Clear Calc 77.3 eGFR > 60 BUN/Creatinine Ratio 9 L Glucose 64 L Calculated Osmolality 282 Calcium 7.6 L Corrected Calcium 8.9 Phosphorus 2.7 Magnesium 1.7 Total Bilirubin < 0.2 L AST 18 ALT < 7 L Alkaline Phosphatase 62 Total Protein 4.4 L Albumin 2.4 L Globulin 2.0 L Albumin/Globulin Ratio 1.2 Impressions Impression: Colonic inertia Colonic distention Abnormal CT scan of the abdomen pelvis Plan KUB to be done in the morning Most likely will try 1 more attempt to start the GoLytely at a low dose After KUB is reviewed Assessment & Plan A&P Narrative # Pain abdomen with bloody diarrhea abnormal CT scan of the abdomen pelvis differential diagnosis include infectious colitis versus inflammatory bowel disease Plan stool for Gram stain stool culture and sensitivity stool C. difficile CRP ANCA antibody Fecal calprotectin If above negative we will consider fiberoptic colonoscopy with possible biopsies Agree with broad-spectrum antibiotics Thank you very much for the opportunity to participate in the care of this patient Time Spent With Patient Time: Total time spent is greater than 50% in coordination of care (as documented) at patient's floor/unit and/or counseling patient:
--- NOTE | 2024-05-21 21:58 | XR_ITS ---
Examination: Abdomen AP single view Technique: AP portable supine abdomen, single view Exam date and time: May 22, 2019 5:10 PM Indications: Abdominal distention today. Findings: Moderate to prominent colonic ileus especially right and transverse colon No obstruction No free air The osseous structures are intact Impression: Moderate to prominent colonic ileus
[2024-05-22] VITALS (11 sets, daily range): BP systolic 113–132; BP diastolic 63–82; PULSE 81–99; RESP 13–19; TEMP 36.2–37.2; O2SAT 92–99
[2024-05-22] MEDS: SIMETHICONE 80 MG CHEW PO ×3 (05:15→21:07)
[2024-05-22] MEDS: metroNIDAZOLE/NS 500 MG IVPB 500 MG/100 ML BAG 200 MG IV ×3 (05:15→21:08)
[2024-05-22 05:57] LABS: Basophils % (Auto) 0 % (0-2.5); Eosinophils # (Auto) 0.3 Thou/mm3 (0.0-0.5); Eosinophils % (Auto) 3 % (0-10); Hematocrit 33.9 % (36.0-46.0); Hemoglobin 10.3 g/dL (12.0-16.0); Immature Granulocytes % (Auto) 1 % (0-0); Immature Granulocytes Auto 0.12 Thou/mm3 (0.00-0.00); Lymphocytes # (Auto) 1.3 Thou/mm3 (1.0-4.8); Lymphocytes % (Auto) 14 % (10-50); Mean Corpuscular HGB Conc 30.4 g/dl (31.0-37.0); Mean Corpuscular Hemoglobin 25.9 pg (25.0-35.0); Mean Corpuscular Volume 85 fL (80-100); Monocytes # (Auto) 0.9 Thou/mm3 (0.0-0.8); Monocytes % (Auto) 9 % (0-12); Neutrophils # (Auto) 6.9 Thou/mm3 (1.8-7.7); Neutrophils % (Auto) 73 % (37-80); Nucleated Red Blood Cell % 0 /100 WBC (0); Platelet Count 214 Thou/mm3 (140-440); RDW Standard Deviation 47.4 fL (36.4-46.3); Red Blood Count 3.97 Miln/mm3 (4.00-5.20); White Blood Count 9.5 Thou/mm3 (3.6-11.0)
[2024-05-22 06:08] LABS: Alanine Aminotransferase 9 U/L (10-49); Albumin, Serum 2.4 gm/dL (3.5-5.0); Albumin/Globulin Ratio 1.1 (1.2-2.2); Alkaline Phosphatase 64 U/L (46-116); Anion Gap 7 (7-16); Aspartate Amino Transferase 21 U/L (0-34); BUN/Creatinine Ratio 7 Ratio (12-20); Bilirubin,Total 0.3 mg/dL (0.3-1.2); Blood Urea Nitrogen < 5 mg/dL (9-23); Calcium 7.9 mg/dL (8.3-10.6); Calcium (Corrected) 9.2 mg/dL (8.5-10.1); Chloride 107 mMol/L (98-107); Creatinine (Component) 0.7 mg/dL (0.6-1.3); Estimated Creatinine Clearance 74.7 mL/min (>60); Globulin 2.2 gm/dL (2.3-3.5); Glucose 64 mg/dL (74-106); Osmolality,Calculated 280 (275-295); Potassium 3.8 mMol/L (3.4-5.1); Sodium 143 mMol/L (136-145); Total Protein 4.6 gm/dL (5.7-8.2); eGFR > 60 See Note
[2024-05-22] MEDS: ALBUTEROL/IPRATROPIUM (Duoneb) RT SOL 3 ML NEBU INH ×3 (07:01→22:40)
[2024-05-22] MEDS: CIPROFLOXACIN/D5w 400 MG IVPB 400 MG/200 ML BAG 200 MG IV ×2 (08:31→21:08)
[2024-05-22] MEDS: METHADONE PO (08:31)
[2024-05-22] MEDS: PANTOPRAZOLE INJ 40 MG VIAL IVP (08:32)
[2024-05-22] MEDS: HYDROcodone/APAP 5/325 TABLET 1 TAB PO ×2 (08:40→16:57)
[2024-05-22] MEDS: MORPHINE SULF INJ 10 MG/ML VIAL 4 MG IV (09:56)
--- NOTE | 2024-05-22 11:38 | ESPR_ITS ---
Documentation for date of: 05/22/24 Subjective Subjective Interval history: Patient seen and examined in telemetry today. Overnight there were no major events and patient continues to complain about abdominal distention this morning. She has a large abdomen with tenderness to deep palpation. There is high-pitched occasional tympanic bowel sounds with decreased frequency. She had about 800 cc of stool collected via the rectal tube. Spoke to gastroenterology today, Dr. Lopez about the use of Movantik as patient chronically takes methadone which may be contributing to her current presentation. Will also start patient back on GoLytely slowly as tolerated. Exam Vital Signs Temp Pulse Resp BP Pulse Ox O2 Del Method O2 Flow Rate 98.1 F 88 16 117/63 99 Nasal Cannula 3 05/22/24 08:00 05/22/24 08:00 05/22/24 08:00 05/22/24 08:00 05/22/24 08:00 05/22/24 08:00 05/22/24 08:00 Narrative Exam Constitutional: Well nourished and in some discomfort CVS: RRR, S1 and S2 present, no murmurs, rubs or gallops . RESP: CTAB, no SOB, no rales, rhonchi or wheezing. No respiratory Distress GI: Large and tender that is mildly distended. There is decreased bowel movements throughout with an occasional high-pitched sound. Rectal tube has collected brown watery stools MSK: Full range of motion, No trauma or deformities or masses. Skin: Warm to touch, Dry. No rashes or lesions. 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 Sensation grossly intact. Psych: (AAO) x3 . Appropriate mood and affect. Objective Labs 05/22/24 05:04 05/22/24 05:04 Labs: Laboratory Results - last 24 hr 05/22/24 05:04 WBC 9.5 RBC 3.97 L Hgb 10.3 L Hct 33.9 L MCV 85 MCH 25.9 MCHC 30.4 L RDW Std Deviation 47.4 H Plt Count 214 Neut % (Auto) 73 Lymph % (Auto) 14 [place] % (Auto) 9 Eos % (Auto) 3 Baso % (Auto) 0 Neut # (Auto) 6.9 Lymph # (Auto) 1.3 [place] # (Auto) 0.9 H Eos # (Auto) 0.3 Baso # (Auto) 0.0 Immature Gran # (Auto) 0.12 H Absolute Nucleated RBC 0.00 Immature Gran % 1 H Nucleated RBC % 0 Sodium 143 Potassium 3.8 Chloride 107 Carbon Dioxide 29.0 Anion Gap 7 BUN < 5 L Creatinine 0.7 Estim Creat Clear Calc 74.7 eGFR > 60 BUN/Creatinine Ratio 7 L Glucose 64 L Calculated Osmolality 280 Calcium 7.9 L Corrected Calcium 9.2 Total Bilirubin 0.3 AST 21 ALT 9 L Alkaline Phosphatase 64 Total Protein 4.6 L Albumin 2.4 L Globulin 2.2 L Albumin/Globulin Ratio 1.1 L Quality Measures Quality Measures VTE prophylaxis Assessment & Plan Assessment Current Active Medications: Generic Name Dose Route Start Last Admin Trade Name Freq PRN Reason Stop Dose Admin Acetaminophen 650 mg 05/21/24 14:55 Acetaminophen 325 Mg Tablet PO 06/16/24 19:57 Q6H PRN Fever >100.4 or pain 1-3 Hydrocodone Bitart/Acetaminophen 1 tab 05/21/24 14:53 05/22/24 08:40 Hydrocodone/Apap 5/325 Tablet PO 05/26/24 14:52 1 tab Q6HR PRN Administration PAIN SCALE 4-10(Mod-Sev Albuterol/Ipratropium 3 ml 05/18/24 23:00 05/22/24 07:01 Albuterol/Ipratropium (Duoneb) Rt Carmen 3 Ml Nebu INH 06/17/24 22:59 3 ml Q8HRRT BRIGIDO Administration Amitriptyline HCl 75 mg 05/22/24 21:00 Amitriptyline Hcl 25 Mg Tablet PO 06/21/24 20:59 HS BRIGIDO Methadone 109 Mg 0 ea 05/19/24 09:45 05/22/24 08:31 Solution PO 06/18/24 09:44 109 bottle QDAY BRIGIDO Administration Protocol Ciprofloxacin/Dextrose 400 mg in 200 mls @ 200 mls/hr 05/18/24 10:04 05/22/24 08:31 Cipro Ivpb IV 05/25/24 10:03 200 mls/hr Q12HR BRIGIDO Administration Metronidazole 500 mg in 100 mls @ 200 mls/hr 05/18/24 10:05 05/22/24 05:15 Flagyl 500 Mg Iv IV 05/25/24 10:04 200 mls/hr Q8HR BRIGIDO Administration Morphine Sulfate 4 mg 05/22/24 09:43 05/22/24 09:56 Morphine Sulf Inj 10 Mg/Ml Vial IV 05/27/24 09:42 4 mg Q3HR PRN Administration PAIN SCALE 4-10(Mod-Sev Naloxone HCl 0.04 mg 05/22/24 09:43 Naloxone Inj 1 Mg/Ml Syringe 2 Ml IV 06/21/24 09:42 Q3M PRN OPIATE REVERSAL Ondansetron HCl 4 mg 05/17/24 19:58 05/20/24 09:14 Ondansetron Inj 2 Mg/Ml Inj 2 Ml IV 06/16/24 19:57 4 mg Q6H PRN Administration NAUSEA OR VOMITING Protocol Pantoprazole Sodium 40 mg 05/17/24 20:15 05/22/24 08:32 Pantoprazole Inj 40 Mg Vial IVP 06/16/24 20:14 40 mg QDAY BRIGIDO Administration Quetiapine Fumarate 400 mg 05/18/24 21:00 05/21/24 21:10 Quetiapine Fumarate 100 Mg Tablet PO 06/17/24 20:59 400 mg HS BRIGIDO Administration Simethicone 80 mg 05/21/24 22:00 05/22/24 05:15 Simethicone 80 Mg Chew PO 06/20/24 21:59 80 mg TID BRIGIDO Administration Plan In summary: 58-year-old female with PMHx of COPD on 3 L home oxygen, HTN, and depression who presented with worsening abdominal pain, diarrhea with bright red [place] bleed and admitted for workup and management of abdominal pain and diarrhea. Diffuse colitis, possible GI infection GI bleed rule out Ileus ruled out Leukocytosis, resolved Patient presented with 1 week of progressively worsening abdominal pain and watery diarrhea with occasional bright red blood. On exam patient has diffuse generalized tenderness to palpation of the abdomen with rebound tenderness but no guarding. DDx: Medication side effect, IBS, IBD CT abdomen pelvis showed Severe pulmonary fibrosis. Liver mildly irregular in contour. Severe diffuse hyperemia and inflammatory change involving the entire colon. On admission WBC 17.2??>11.4 Blood culture negative x 48 hours preliminary Hemoglobin stable at 12.8 C. difficile PCR negative Stool for WBCs negative Hepatitis panel negative Stool culture negative 05/21: Patient had worsening abdominal distention. AXR was ordered which showed severely dilated bowel loops. GoLytely put on hold. Fleet enema x 1 ordered GI, Dr. Lopez consulted. Rectal tube was placed. Plan: ? Clear liquid diet ? ANCA studies pending ? Stool calprotectin, Giardia and norovirus pending ? Avoiding NSAIDs ? ciprofloxacin 400 Mg IV twice daily on [05/18? ? metronidazole 500 Mg IV every 8 hourly on [05/18? ? GoLytely bowel prep on hold - Simethicone 80 mg TID ? GI, Dr. Lopez consulted and closely following the case. Appreciate recommendations. ?05/22/2024?will start patient on Movantik 25 mg p.o. daily as patient takes methadone and is likely having ileus due to opioid use. Will also restart GoLytely as tolerated and attempt to clear the patient for colonoscopy Metabolic dysfunction associated steatohepatitis Liver ultrasound significant for fatty liver with trace free fluid. Plan: ? Recommend low-fat diet Community-acquired pneumonia Severe pulmonary fibrosis COPD on 3.5 L home oxygen Patient denies any symptoms of shortness of breath or cough. On exam patient has diffuse crackles and wheeze throughout all lung diallo. Chest x-ray showed extensive bilateral consolidation more in the middle lobes. PSI/PORT : 48 points ; Risk class II Patient reports taking prednisone at home. Plan: ? Continue DuoNebs every 8 hourly ? Continue metronidazole and ciprofloxacin Primary hypertension 05/21 BP 140/87 From home medication reconciliation, patient appears to be no longer taking clonidine. Plan: ? Will continue to monitor blood pressure while in hospital. ? May consider starting antihypertensives based on blood pressure trend Depression Home medication fluoxetine 40mg po BID and Quetiapine 400 mg po Qday. Plan: ? Fluoxetine on hold due to concern of diarrhea ? Continue quetiapine 400 Mg at bedtime Health maintenance: Disposition: Medsurg Diet: Clear liquid Lines: pIVs GI Prophylaxis: Pantoprazole IV Thrombo Prophylaxis: SCDs Code status: FULL CODE I discussed patient's care with attending physician, Dr Mitchell Patiño PGY3 Attending Provider Attestation/Addendum I, Tati Medrano, DO, attest that I was physically present for the arauz portions of the service and evaluated the patient with the resident and I reviewed and discussed the case with the resident and agree with the resident's findings and plans of care as documented above Patient seen and evaluated this AM stating that she has 8/10 sharp pain. Patient states she is on methadone due to hx of heroin use. Will give movantik due to opioid induced constipation. Rectal tube appears to have some liquid stool. Patient states pain did not resolve with norco. Will re-start morphine as needed. Ileus appears somewhat improved with decompression. Patient will need colonoscopy and continue with golytely if tolerated.
[2024-05-22] MEDS: NA SU/NAHCO3/KC/PEG (Golytely) 4,000 ML BTL 4000 ML PO (12:11)
--- NOTE | 2024-05-22 12:15 | EVENTNT_ITS ---
Documentation for date of: 05/23/24 Event Note Event Note: Rapid Response Room: 272 Time: 12:15 Reason for Call: Seizure-like activity, altered mental status, hypoxia Attending Dr. Langford responded to the rapid. Residents unavailable at this time. Patient was apparently seated on the bedside commode, patient endorsed lightheadedness but did not lose consciousness or hit her head. RN helped patient to the floor and noticed convulsion-like activity of the upper body with bilateral shaking. Once patient was moved to floor she was hypoxic to the high 80s, altered, and reported severe abdominal pain. Stroke alert was called. Hi- Flow was ordered. Patient was given 2 mg IV morphine with significant improvement of abdominal pain. Procalcitonin, LDH, CMP, lactate, and ABG were ordered. Abdominal X-ray obtained showed no free air. Chest X-ray showed worsening bilateral infiltrates were worsening and suspicious for aspiration pneumonitis. ABG showed respiratory acidosis with hypercapnia. Patient was upgraded to ICU level care. Patient was discussed with the attending, Dr. Langford. Lizzy Spring, PGY-2
--- NOTE | 2024-05-22 14:47 | ESPR_ITS ---
Documentation for date of: 05/22/24 Subjective Subjective Interval history: Patient evaluated Repeat KUB shows very little distention of the colon slight ileus but no major improvement GoLytely started after discussion with the internal medicine team and patient is having good results On examination belly is not distended and good bowel sounds Once patient is cleared we will schedule the patient for a colonoscopy tomorrow Exam Vital Signs Temp Pulse Resp BP Pulse Ox O2 Del Method O2 Flow Rate 97.3 F 87 13 116/65 96 Nasal Cannula 3 05/22/24 12:00 05/22/24 12:00 05/22/24 12:00 05/22/24 12:00 05/22/24 12:00 05/22/24 12:00 05/22/24 12:00 Objective Labs 05/22/24 05:04 05/22/24 05:04 Labs: Laboratory Results - last 24 hr 05/22/24 05:04 WBC 9.5 RBC 3.97 L Hgb 10.3 L Hct 33.9 L MCV 85 MCH 25.9 MCHC 30.4 L RDW Std Deviation 47.4 H Plt Count 214 Neut % (Auto) 73 Lymph % (Auto) 14 [place] % (Auto) 9 Eos % (Auto) 3 Baso % (Auto) 0 Neut # (Auto) 6.9 Lymph # (Auto) 1.3 [place] # (Auto) 0.9 H Eos # (Auto) 0.3 Baso # (Auto) 0.0 Immature Gran # (Auto) 0.12 H Absolute Nucleated RBC 0.00 Immature Gran % 1 H Nucleated RBC % 0 Sodium 143 Potassium 3.8 Chloride 107 Carbon Dioxide 29.0 Anion Gap 7 BUN < 5 L Creatinine 0.7 Estim Creat Clear Calc 74.7 eGFR > 60 BUN/Creatinine Ratio 7 L Glucose 64 L Calculated Osmolality 280 Calcium 7.9 L Corrected Calcium 9.2 Total Bilirubin 0.3 AST 21 ALT 9 L Alkaline Phosphatase 64 Total Protein 4.6 L Albumin 2.4 L Globulin 2.2 L Albumin/Globulin Ratio 1.1 L Impressions Impression: Colonic distention improved Abdominal distention improved Start GoLytely again Colonoscopy a.m. Assessment & Plan A&P Narrative # Pain abdomen with bloody diarrhea abnormal CT scan of the abdomen pelvis differential diagnosis include infectious colitis versus inflammatory bowel disease Plan stool for Gram stain stool culture and sensitivity stool C. difficile CRP ANCA antibody Fecal calprotectin If above negative we will consider fiberoptic colonoscopy with possible biopsies Agree with broad-spectrum antibiotics Thank you very much for the opportunity to participate in the care of this patient Time Spent With Patient Time: Total time spent is greater than 50% in coordination of care (as documented) at patient's floor/unit and/or counseling patient:
[2024-05-22] MEDS: MORPHINE SULF INJ 10 MG/ML VIAL 2 MG IV (18:31)
--- NOTE | 2024-05-22 18:46 | PC.NURSE ---
At approximately 18:10 patient had an episode of desaturating oxygen to 75%. Upon entering the room, patient son had helped the patient to her bedside commode. While on the commode the patient had dislodged her rectal tube. Patient began panickingand oxygen saturation remained in the 70's. Upon returning patient to her bed and applying oxymask at 10L, and giving PRN morphine, patient saturation sulma back up to percent. Dr Palomo was notified of event.
[2024-05-22] MEDS: QUEtiapine FUMARATE 100 MG TABLET 400 MG PO (21:07)
[2024-05-22] MEDS: AMITRIPTYLINE HCL 25 MG TABLET 75 MG PO (21:07)
[2024-05-23] VITALS (24 sets, daily range): BP systolic 98–161; BP diastolic 49–86; PULSE 88–106; RESP 15–37; TEMP 35.3–37.2; O2SAT 49–99
[2024-05-23 04:43] LABS: Basophils % (Auto) 0 % (0-2.5); Eosinophils # (Auto) 0.2 Thou/mm3 (0.0-0.5); Eosinophils % (Auto) 1 % (0-10); Hematocrit 31.4 % (36.0-46.0); Hemoglobin 9.4 g/dL (12.0-16.0); Immature Granulocytes % (Auto) 2 % (0-0); Immature Granulocytes Auto 0.22 Thou/mm3 (0.00-0.00); Lymphocytes # (Auto) 1.1 Thou/mm3 (1.0-4.8); Lymphocytes % (Auto) 9 % (10-50); Mean Corpuscular HGB Conc 29.9 g/dl (31.0-37.0); Mean Corpuscular Hemoglobin 25.9 pg (25.0-35.0); Mean Corpuscular Volume 87 fL (80-100); Monocytes # (Auto) 1.2 Thou/mm3 (0.0-0.8); Monocytes % (Auto) 10 % (0-12); Neutrophils # (Auto) 9.7 Thou/mm3 (1.8-7.7); Neutrophils % (Auto) 78 % (37-80); Nucleated Red Blood Cell % 0 /100 WBC (0); Platelet Count 137 Thou/mm3 (140-440); RDW Standard Deviation 49.3 fL (36.4-46.3); Red Blood Count 3.63 Miln/mm3 (4.00-5.20); White Blood Count 12.5 Thou/mm3 (3.6-11.0)
[2024-05-23 05:19] LABS: Alanine Aminotransferase 11 U/L (10-49); Albumin, Serum 2.3 gm/dL (3.5-5.0); Alkaline Phosphatase 62 U/L (46-116); Anion Gap 7 (7-16); Aspartate Amino Transferase 30 U/L (0-34); BUN/Creatinine Ratio 5 Ratio (12-20); Bilirubin,Total 0.4 mg/dL (0.3-1.2); Blood Urea Nitrogen 6 mg/dL (9-23); Calcium 7.9 mg/dL (8.3-10.6); Calcium (Corrected) 9.3 mg/dL (8.5-10.1); Carbon Dioxide 29.1 mMol/L (20.0-31.0); Chloride 107 mMol/L (98-107); Creatinine (Component) 1.1 mg/dL (0.6-1.3); Estimated Creatinine Clearance 47.5 mL/min (>60); Globulin 2.3 gm/dL (2.3-3.5); Glucose 64 mg/dL (74-106); Osmolality,Calculated 280 (275-295); Potassium 4.1 mMol/L (3.4-5.1); Sodium 143 mMol/L (136-145); Total Protein 4.6 gm/dL (5.7-8.2); eGFR 58 See Note
[2024-05-23] MEDS: metroNIDAZOLE/NS 500 MG IVPB 500 MG/100 ML BAG 200 MG IV ×3 (05:31→21:19)
[2024-05-23] MEDS: SIMETHICONE 80 MG CHEW PO (05:31)
[2024-05-23 06:56] LABS: Giardia Result NOT DETECTED; Norovirus, EIA (Stool)* NOT DETECTED
[2024-05-23 07:04] LABS: Helicobacter pylori Ag, Stool* DETECTED (NOT DETECTED)
[2024-05-23] MEDS: ALBUTEROL/IPRATROPIUM (Duoneb) RT SOL 3 ML NEBU INH ×3 (07:19→23:25)
--- NOTE | 2024-05-23 09:21 | ESPR_ITS ---
<Statement entered by Lizzy Spring MD - 05/24/24 01:03> Patient was seen and examined by me personally. I have directly supervised and reviewed the above documentation by the team resident and agree with its findings with any exceptions or additional findings as below. Plan of care was discussed with the attending, Dr. Langford. This morning patient was seen at bedside, patient continuing to complain of abdominal discomfort and bloating but on examination abdomen is less firm today. Patient had GoLytely resumed at a lower rate. Then around noon the patient was seated on the bedside commode having a large bowel movement when she had endorsed lightheadedness, was assisted to the ground and had convulsion-like activity with altered mental status and hypoxia afterward. It was learned that patient has had similar episodes at home before but was never brought to medical attention before for them. Patient was subsequently upgraded to ICU for higher level care. Lizzy Spring, PGY-2 Documentation for date of: 05/23/24 Subjective Subjective Interval history: Patient was seen and examined by the bedside. Yesterday evening, patient's rectal tube was dislodged. She reported having 2 bowel movements overnight with watery brown stools. Continues to have abdominal pain, abdomen is distended, soft with no rebound symptoms. Will be started on naloxegol today, continues to receive methadone daily, pain meds prn. At 12:15 PM she had the episode of seizure-like activity when using bedside commode, has became altered, ABG showed acidosis, lactic acid was elevated, family member reported that she had similar episodes at home before, she was never visited with them and never received any medications. She was transferred to the ICU. Exam Vital Signs Temp Pulse Resp BP Pulse Ox O2 Del Method O2 Flow Rate 98.9 F 99 20 145/74 H 98 Oxy Mask 5 05/23/24 08:00 05/23/24 08:00 05/23/24 08:00 05/23/24 08:00 05/23/24 08:00 05/23/24 08:00 05/23/24 08:00 Narrative Exam Physical Exam General: Awake and in no acute distress. Conversational and non-toxic appearing. HEENT: Normocephalic, atraumatic, mucous membranes moist. Heart: Regular rate and rhythm, no murmurs. Lungs: Clear to auscultation with no wheezing or crackles. Abdomen: Soft, distended, tenderness in the lower quadrants, positive bowel sounds. ?No guarding or rebound tenderness. Neurologic: Alert and oriented x3, no gross neurological deficit, and patient able to move all 4 extremities. Extremities: No edema. Skin: No rash or ecchymoses. Objective Labs 05/24/24 04:40 05/24/24 04:40 Labs: Laboratory Results - last 24 hr 05/18/24 05/23/24 05:24 04:19 WBC 12.5 H RBC 3.63 L Hgb 9.4 L Hct 31.4 L MCV 87 MCH 25.9 MCHC 29.9 L RDW Std Deviation 49.3 H Plt Count 137 L D Neut % (Auto) 78 Lymph % (Auto) 9 L [place] % (Auto) 10 Eos % (Auto) 1 Baso % (Auto) 0 Neut # (Auto) 9.7 H Lymph # (Auto) 1.1 [place] # (Auto) 1.2 H Eos # (Auto) 0.2 Baso # (Auto) 0.0 Immature Gran # (Auto) 0.22 H Absolute Nucleated RBC 0.00 Immature Gran % 2 H Nucleated RBC % 0 Sodium 143 Potassium 4.1 Chloride 107 Carbon Dioxide 29.1 Anion Gap 7 BUN 6 L Creatinine 1.1 Estim Creat Clear Calc 47.5 L eGFR 58 L BUN/Creatinine Ratio 5 L Glucose 64 L Calculated Osmolality 280 Calcium 7.9 L Corrected Calcium 9.3 Total Bilirubin 0.4 AST 30 ALT 11 Alkaline Phosphatase 62 Total Protein 4.6 L Albumin 2.3 L Globulin 2.3 Albumin/Globulin Ratio 1.0 L Stl Giardia Antigen NOT DETECTED Stool H. pylori Ag DETECTED A Stool Norovirus Ag NOT DETECTED Quality Measures Quality Measures VTE prophylaxis Assessment & Plan Assessment Current Active Medications: Generic Name Dose Route Start Last Admin Trade Name Freq PRN Reason Stop Dose Admin Acetaminophen 650 mg 05/21/24 14:55 Acetaminophen 325 Mg Tablet PO 06/16/24 19:57 Q6H PRN Fever >100.4 or pain 1-3 Hydrocodone Bitart/Acetaminophen 1 tab 05/21/24 14:53 05/22/24 16:57 Hydrocodone/Apap 5/325 Tablet PO 05/26/24 14:52 1 tab Q6HR PRN Administration PAIN SCALE 4-10(Mod-Sev Albuterol/Ipratropium 3 ml 05/18/24 23:00 05/23/24 07:19 Albuterol/Ipratropium (Duoneb) Rt Carmen 3 Ml Nebu INH 06/17/24 22:59 3 ml Q8HRRT BRIGIDO Administration Amitriptyline HCl 75 mg 05/22/24 21:00 05/22/24 21:07 Amitriptyline Hcl 25 Mg Tablet PO 06/21/24 20:59 75 mg HS BRIGIDO Administration Methadone 109 Mg 0 ea 05/19/24 09:45 05/22/24 08:31 Solution PO 06/18/24 09:44 109 bottle QDAY BRIGIDO Administration Protocol Ciprofloxacin/Dextrose 400 mg in 200 mls @ 200 mls/hr 05/18/24 10:04 05/22/24 21:08 Cipro Ivpb IV 05/25/24 10:03 200 mls/hr Q12HR BRIGIDO Administration Metronidazole 500 mg in 100 mls @ 200 mls/hr 05/18/24 10:05 05/23/24 05:31 Flagyl 500 Mg Iv IV 05/25/24 10:04 200 mls/hr Q8HR BRIGIDO Administration Lactated Ringer's 1,000 mls @ 75 mls/hr 05/23/24 08:08 Lactated Ringers IV 05/23/24 21:27 .[id number] BRIGIDO Morphine Sulfate 2 mg 05/22/24 17:18 05/22/24 18:31 Morphine Sulf Inj 10 Mg/Ml Vial IV 05/27/24 09:42 2 mg Q4HR PRN Administration PAIN SCALE 4-10(Mod-Sev Naloxegol 25 mg 05/23/24 09:00 Naloxegol Oxalate 25 Mg Tablet (Non-Formulary) PO 06/22/24 08:59 QDAY BRIGIDO Naloxone HCl 0.04 mg 05/22/24 09:43 Naloxone Inj 1 Mg/Ml Syringe 2 Ml IV 06/21/24 09:42 Q3M PRN OPIATE REVERSAL Ondansetron HCl 4 mg 05/17/24 19:58 05/20/24 09:14 Ondansetron Inj 2 Mg/Ml Inj 2 Ml IV 06/16/24 19:57 4 mg Q6H PRN Administration NAUSEA OR VOMITING Protocol Pantoprazole Sodium 40 mg 05/17/24 20:15 05/22/24 08:32 Pantoprazole Inj 40 Mg Vial IVP 06/16/24 20:14 40 mg QDAY BRIGIDO Administration Quetiapine Fumarate 400 mg 05/18/24 21:00 05/22/24 21:07 Quetiapine Fumarate 100 Mg Tablet PO 06/17/24 20:59 400 mg HS BRIGIDO Administration Simethicone 80 mg 05/21/24 22:00 05/23/24 05:31 Simethicone 80 Mg Chew PO 06/20/24 21:59 80 mg TID BRIGIDO Administration Plan In summary: 58-year-old female with PMHx of COPD on 3 L home oxygen, HTN, and depression who presented with worsening abdominal pain, diarrhea with bright red [place] bleed and admitted for workup and management of abdominal pain and diarrhea. Diffuse colitis, possible GI infection GI bleed rule out Ileus ruled out Leukocytosis, resolved Patient presented with 1 week of progressively worsening abdominal pain and watery diarrhea with occasional bright red blood. On exam patient has diffuse generalized tenderness to palpation of the abdomen with rebound tenderness but no guarding. DDx: Medication side effect, IBS, IBD CT abdomen pelvis showed Severe pulmonary fibrosis. Liver mildly irregular in contour. Severe diffuse hyperemia and inflammatory change involving the entire colon. On admission WBC 17.2??>11.4 Blood culture negative x 48 hours preliminary Hemoglobin stable at 12.8 C. difficile PCR negative Stool for WBCs negative Hepatitis panel negative Stool culture negative 05/21: Patient had worsening abdominal distention. AXR was ordered which showed severely dilated bowel loops. GoLytely put on hold. Fleet enema x 1 ordered GI, Dr. Lopez consulted. 05/22: Rectal tube was dislodged, removed, no reinsertion. Plan: ? Clear liquid diet ? ANCA studies pending ? Stool calprotectin, Giardia and norovirus pending ? Avoiding NSAIDs ? ciprofloxacin 400 Mg IV twice daily on [05/18? ? metronidazole 500 Mg IV every 8 hourly on [05/18? ? GoLytely bowel prep on hold - Simethicone 80 mg TID ? GI, Dr. Lopez consulted and closely following the case. Appreciate recommendations. ? Started patient on Movantik 25 mg p.o. daily as patient takes methadone and is likely having ileus due to opioid use. - GoLytely as tolerated and attempt to clear the patient for colonoscopy Metabolic dysfunction associated steatohepatitis Liver ultrasound significant for fatty liver with trace free fluid. Plan: ? Recommend low-fat diet Community-acquired pneumonia Severe pulmonary fibrosis COPD on 3.5 L home oxygen Patient denies any symptoms of shortness of breath or cough. On exam patient has diffuse crackles and wheeze throughout all lung diallo. Chest x-ray showed extensive bilateral consolidation more in the middle lobes. PSI/PORT : 48 points ; Risk class II Patient reports taking prednisone at home. Plan: ? Continue DuoNebs every 8 hourly ? Continue metronidazole and ciprofloxacin Primary hypertension 05/21 BP 140/87 From home medication reconciliation, patient appears to be no longer taking clonidine. Plan: ? Will continue to monitor blood pressure while in hospital. ? May consider starting antihypertensives based on blood pressure trend Depression Home medication fluoxetine 40mg po BID and Quetiapine 400 mg po Qday. Plan: ? Fluoxetine on hold due to concern of diarrhea ? Continue quetiapine 400 Mg at bedtime Health maintenance: Disposition: Medsurg, upgraded to ICU Diet: Clear liquid Lines: pIVs GI Prophylaxis: Pantoprazole IV Thrombo Prophylaxis: SCDs Code status: FULL CODE Plan of care discussed with attending Dr. Langford, PGY-[address] Spring and PGY-[address] Patiño. Maryuri Irizarry MD, PGY 1. Attending Provider Attestation/Addendum I have examined the patient, reviewed labs and imaging findings, discussed the case with the resident(s), and reviewed entered orders. I agree with the plan of care as outlined in this note, with these additional summaries/recommendations: Patient seen at bedside. No acute overnight events. Patient continues to endorse abdominal pain, distention, and discomfort. Shortly after visiting patient rapid response was called. Patient was using the bedside commode when she experienced lightheadedness, had bilateral upper extremity shaking, altered mental status, and reporting severe abdominal pain. Patient was slowly lowered to the floor by RNs. Per nurses, patient did not hit her head or lose consciousness. At bedside patient is noted to have altered mental status, hypoxia, and endorsing severe abdominal pain. ICU team was also present at bedside. Stat ABG was obtained which revealed pH 7.17, pCO2 71, and pO2 68. CHEM panel revealed CR 1.4, lactic acid 5.1, TC K3 530, Pro-Ced 0.91. Chest x- ray shows severe bilateral pneumonia with ARDS pattern and abdominal x-ray showed moderate colonic ileus with no free air noted. Stroke alert was called. Patient was given 2mg IV morphine for abdominal pain. Patient's at bedside reports patient has had multiple episodes like this in the past that resolved on their own and did not seek medical evaluation. Most likely patient had a seizure leading to postictal state and hypoxia. Consult in-house neurology. Seizure precautions. Patient will be upgraded to the ICU for continuation of care. Thank you ICU team for being readily available to assist in this patient's care. Dr. Primitivo MD
[2024-05-23] MEDS: NALOXEGOL OXALATE 25 MG TABLET (NON-FORMULARY) PO (10:05)
[2024-05-23] MEDS: METHADONE PO (10:05)
[2024-05-23] MEDS: CIPROFLOXACIN/D5w 400 MG IVPB 400 MG/200 ML BAG 200 MG IV (10:07)
[2024-05-23] MEDS: PANTOPRAZOLE INJ 40 MG VIAL IVP (10:07)
--- NOTE | 2024-05-23 11:22 | PC.SS ---
Follow up note: Waiting for colonoscopy. Pt will return home upon dc.
--- NOTE | 2024-05-23 12:34 | XR_ITS ---
Examination: AP chest single view Technique one AP portable semiupright chest single view Exam date and time: May 23, 2022 1322 hours Comparison May 17, 2024 INDICATIONS: Hypoxia today FINDINGS: Severe bilateral lung opacity, progressed compared with May 17, 2024 Mild prominence left ventricle Moderate osteopenia IMPRESSION: Severe bilateral pneumonia ARDS pattern
--- NOTE | 2024-05-23 12:37 | XR_ITS ---
Examination: Abdomen AP single view Technique: AP portable supine abdomen, single view Exam date and time: May 23, 2024 1324 hours INDICATIONS: Abdominal pain constipation today FINDINGS: Moderate colonic ileus No free air Please see the chest x-ray report today IMPRESSION: Moderate colonic ileus
[2024-05-23] MEDS: MORPHINE SULF INJ 10 MG/ML VIAL 2 MG IVP (12:45)
[2024-05-23 12:47] LABS: Base Excess -3 (-3-3); HCO3 26 mEq/L (20-26); Inspired Oxygen, FIO2 100 %; O2 Saturation 89 % (91-98); PCO2 71 mmHg (32.0-48.0); PO2 68 mmHg (83-108)
[2024-05-23 12:49] LABS: Allen Test Performed/OK; Puncture Site Right Radial; pH, Arterial 7.17 (7.35-7.45)
--- NOTE | 2024-05-23 12:50 | PC.NURSE ---
Rapid Response called on patient. Pt was standing by the bed when she became unsteady. 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 Patient was altered and unable to answer questions. Patient was laying in the floor in her own stool. Diaphoretic and shaking. At end of rapid patient was transfered to ICU.
[2024-05-23 13:06] LABS: Lactate (Lactic Acid) 5.1 mMol/L (0.4-2.0)
[2024-05-23] MEDS: levETIRAcetam INJ 100 MG/ML VIAL 5ML 1000 MG IV ×2 (13:36→21:18)
[2024-05-23 13:37] LABS: Alanine Aminotransferase 10 U/L (10-49); Albumin, Serum 2.5 gm/dL (3.5-5.0); Alkaline Phosphatase 74 U/L (46-116); Anion Gap 11 (7-16); Aspartate Amino Transferase 34 U/L (0-34); BUN/Creatinine Ratio 7 Ratio (12-20); Bilirubin,Total 0.6 mg/dL (0.3-1.2); Blood Urea Nitrogen 10 mg/dL (9-23); Calcium 8.2 mg/dL (8.3-10.6); Calcium (Corrected) 9.4 mg/dL (8.5-10.1); Carbon Dioxide 27.6 mMol/L (20.0-31.0); Chloride 106 mMol/L (98-107); Creatinine (Component) 1.4 mg/dL (0.6-1.3); Estimated Creatinine Clearance 40.4 mL/min (>60); Globulin 2.6 gm/dL (2.3-3.5); Glucose 101 mg/dL (74-106); Osmolality,Calculated 287 (275-295); Potassium 3.7 mMol/L (3.4-5.1); Procalcitonin 0.91 ng/ml (0.0-0.49); Sodium 145 mMol/L (136-145); Total Protein 5.1 gm/dL (5.7-8.2); eGFR 44 See Note
[2024-05-23 13:39] LABS: Aspartate Amino Transferase 37 U/L (0-34); Creatine Kinase 353 U/L (34-171); LDH (Lactate Dehydrogenase) 715 U/L (120-246)
--- NOTE | 2024-05-23 13:46 | PC.PT ---
Will cancel PT evaluation. Patient is transferred to ICU.
--- NOTE | 2024-05-23 14:22 | PD.RESCONSUL ---
HPI Data of Consult Requesting Physician: James Zavala MD Admitting Provider: Fred Dubose MD Attending Provider: James Zavala MD Primary Care Provider: Riley Hess PA-C Consult Narrative History of present illness: As per HPI : 58-year-old welsh speaking female with PMHx of COPD on 3.5 L home oxygen, pulmonary fibrosis , HTN, and depression presenting with abdominal pain and diarrhea.Reports 1 week of gradual onset, waxing and waning, diffuse abdominal pain that worsened over the last few days. Associated with watery diarrhea and occasional streaks of blood that occurred around the same time. Pain not associated with eating, however relieved with defecation. Admits to chronic dark stool. Also had subjective fever over the last week, but no chills or night sweats. She has tried IBUPROFEN for pain without relief of symptoms. Denies similar symptoms in the past, sick exposure, recent travel, fall or trauma, chills, night sweats, headaches, chest pain, cough, shortness of breath, nausea, vomiting or constipation, dysuria, hematuria, urinary frequency or urgency.was admitted on floors with IV antibiotics, blood cultures came back negative, was started on GoLytely and moventic and Dr Corley was planning to do Colonoscopy. 05/23/2024: Today she had a rapid response, most likely seizure activity and hypoxia following that. She was in the restroom after the Movantik and GoLytely and had large bowel movement. she was hypoxic on 50s and was upgrade to ICU for closer monitoring . cc:: cc: James Zavala MD Review of Systems Review of Systems Systems Reviewed: All systems reviewed, normal except as documented Exam Vital Signs Temp Pulse Resp BP Pulse Ox O2 Del Method O2 Flow Rate 97.2 F 105 H 24 H 128/78 95 Nasal Cannula 40 05/23/24 12:14 05/23/24 13:06 05/23/24 13:06 05/23/24 12:14 05/23/24 13:06 05/23/24 12:00 05/23/24 13:06 FiO2 80 05/23/24 13:06 Narrative Exam GENERAL:Adult female on hospital bed on high flow HEENT: Normocephalic, atraumatic. Pupils are equal and reactive. Oral mucosa is moist. NECK: Supple, nontender, no JVD CHEST: Symmetrical, atraumatic and with equal expansion ,Nontender on palpation CARDIOVASCULAR: Heart regular rhythm & rate. S1/S2. no murmur or gallop rub or extra beats. LUNGS: b/l equal air entry ABDOMEN: mildely distended, mild tender on palpation. EXTREMITIES:Moves all 4 extremities,No B/L LE edema. SKIN: Warm and dry, no jaundice or rashes noted. NEURO: Patient is AO x 3, Cranial nerves II through XII grossly intact. There is no focal neurologic deficits noted. PSYCHIATRIC: Patient is in normal mood, cooperative, no SI or HI or hallucinations. Results Labs 05/29/24 05:24 05/29/24 05:24 Labs: Short CBC 05/23/24 Range/Units 04:19 WBC 12.5 H (3.6-11.0) Thou/mm3 Hgb 9.4 L (12.0-16.0) g/dL Hct 31.4 L (36.0-46.0) % Plt Count 137 L D (140-440) Thou/mm3 BMP 05/23/24 05/23/24 04:19 12:55 Sodium 143 145 Potassium 4.1 3.7 Chloride 107 106 Carbon Dioxide 29.1 27.6 BUN 6 L 10 Creatinine 1.1 1.4 H Glucose 64 L 101 D Calcium 7.9 L 8.2 L Cardiac Enzymes 05/23/24 Range/Units 12:55 Total Creatine Kinase 353 H (34-171) U/L Liver Function 05/23/24 05/23/24 05/23/24 Range/Units 04:19 12:55 12:55 Total Bilirubin 0.4 0.6 (0.3-1.2) mg/dL AST 30 34 37 H (0-34) U/L ALT 11 10 (10-49) U/L Alkaline Phosphatase 62 74 (46-116) U/L Albumin 2.3 L 2.5 L (3.5-5.0) gm/dL ABG Interpretation ABG results: 05/23/24 12:35 ABG pH 7.17 L* ABG pCO2 71 H* ABG pO2 68 L ABG HCO3 26 ABG O2 Saturation 89 L ABG Base Excess -3 Quality Measures Quality Measures VTE prophylaxis Medications Home Medications and Allergies Home Medications ?Medication ?Instructions ?Recorded ?Confirmed ?Type methadone 10 mg/5 mL oral solution 109 mg PO QDAY 10/28/19 05/18/24 History quetiapine 200 mg tablet (Seroquel) 400 mg PO QDAY 10/28/19 05/18/24 History amitriptyline 75 mg tablet 75 mg PO QPM 11/11/22 05/18/24 History albuterol sulfate 90 mcg/actuation 2 puff inhalation QID PRN 01/27/23 05/18/24 History aerosol inhaler Shortness Of Breath Or Wheezing clonidine HCl 0.3 mg tablet 0.3 mg PO BID 01/27/23 05/18/24 History fluoxetine 40 mg capsule 40 mg PO BID 01/27/23 05/18/24 History mometasone-formoterol HFA 200 2 puff inhalation BID 01/27/23 05/18/24 History mcg-5 mcg/actuation aerosol inhaler (Dulera) pantoprazole 40 mg tablet,delayed 40 mg PO DAILY 05/18/24 05/18/24 History release prednisone 10 mg tablet 10 mg PO DAILY 05/18/24 05/18/24 History Allergies Allergy/AdvReac Type Severity Reaction Status Date / Time Fish Containing Products Allergy Severe Anaphylaxis Verified 11/10/22 20:07 fish derived Allergy Severe Anaphylaxis Verified 11/10/22 20:07 shellfish derived Allergy Severe Anaphylaxis, Verified 10/28/22 17:38 HIVES AND THROAT SWELLING Visit Medications Acetaminophen (Acetaminophen 325 Mg Tablet) 650 mg PO Q6H PRN PRN Reason: Fever >100.4 or pain 1-3 Stop: 06/16/24 19:57 Hydrocodone Bitart/Acetaminophen (Hydrocodone/Apap 5/325 Tablet) 1 tab PO Q6HR PRN PRN Reason: PAIN SCALE 4-10(Mod-Sev Stop: 05/26/24 14:52 Last Admin: 05/22/24 16:57 Dose: 1 tab Albuterol/Ipratropium (Albuterol/Ipratropium (Duoneb) Rt Carmen 3 Ml Nebu) 3 ml INH Q8HRRT BRIGIDO Stop: 06/17/24 22:59 Last Admin: 05/23/24 07:19 Dose: 3 ml Amitriptyline HCl (Amitriptyline Hcl 25 Mg Tablet) 75 mg PO HS BRIGIDO Stop: 06/21/24 20:59 Last Admin: 05/22/24 21:07 Dose: 75 mg Methadone 109 Mg (Solution) 0 ea PO QDAY [facility]; Protocol Stop: 06/18/24 09:44 Last Admin: 05/23/24 10:05 Dose: 1 bottle Metronidazole (Flagyl 500 Mg Iv) 500 mg in 100 mls @ 200 mls/hr IV Q8HR [facility] Stop: 05/25/24 10:04 Last Admin: 05/23/24 05:31 Dose: 200 mls/hr Lactated Ringer's (Lactated Ringers) 1,000 mls @ 75 mls/hr IV .[id number] [facility] Stop: 05/23/24 21:27 Last Admin: 05/23/24 10:22 Dose: Not Given Ceftriaxone Sodium 1,000 mg/ (Sodium Chloride) 50 mls @ 100 mls/hr IV QDAY [facility] Stop: 05/30/24 14:20 Levetiracetam (Levetiracetam Inj 100 Mg/Ml Vial 5ml) 1,000 mg IV Q12HR [facility] Stop: 06/22/24 13:24 Last Admin: 05/23/24 13:36 Dose: 1,000 mg Naloxegol (Naloxegol Oxalate 25 Mg Tablet (Non-Formulary)) 25 mg PO QDAY [facility] Stop: 06/22/24 08:59 Last Admin: 05/23/24 10:05 Dose: 25 mg Naloxone HCl (Naloxone Inj 1 Mg/Ml Syringe 2 Ml) 0.04 mg IV Q3M PRN PRN Reason: OPIATE REVERSAL Stop: 06/21/24 09:42 Ondansetron HCl (Ondansetron Inj 2 Mg/Ml Inj 2 Ml) 4 mg IV Q6H PRN; Protocol PRN Reason: NAUSEA OR VOMITING Stop: 06/16/24 19:57 Last Admin: 05/20/24 09:14 Dose: 4 mg Pantoprazole Sodium (Pantoprazole Inj 40 Mg Vial) 40 mg IVP QDAY [facility] Stop: 06/16/24 20:14 Last Admin: 05/23/24 10:07 Dose: 40 mg Quetiapine Fumarate (Quetiapine Fumarate 100 Mg Tablet) 400 mg PO HS [facility] Stop: 06/17/24 20:59 Last Admin: 05/22/24 21:07 Dose: 400 mg Discontinued Medications Acetaminophen (Acetaminophen 325 Mg Tablet) 650 mg PO Q6H PRN PRN Reason: PAIN SCALE 1-3 (mild Stop: 06/16/24 19:57 Acetaminophen (Acetaminophen 325 Mg Tablet) 650 mg PO Q6H PRN PRN Reason: Fever >100.4 Stop: 06/16/24 19:57 Acetaminophen (Acetaminophen 325 Mg Tablet) 650 mg PO Q6H PRN PRN Reason: Fever >100.4 or pain 1-6 Stop: 06/16/24 19:57 Hydrocodone Bitart/Acetaminophen (Hydrocodone/Apap 10/325 Tab) 1 tab PO Q4HR PRN PRN Reason: PAIN SCALE 7-10 (Severe Stop: 05/22/24 19:57 Last Admin: 05/20/24 14:26 Dose: 1 tab Albuterol/Ipratropium (Albuterol/Ipratropium (Duoneb) Rt Carmen 3 Ml Nebu) 3 ml INH Q6HRRT [facility] Stop: 06/17/24 00:59 Last Admin: 05/23/24 13:42 Dose: Not Given Methadone 109 Mg (Solution) 0 ea PO QDAY [facility]; Protocol Stop: 06/17/24 12:44 Last Admin: 05/20/24 06:51 Dose: Not Given Etomidate (Etomidate Inj 2 Mg/Ml Vial 10 Ml) 20 mg IVP X1 ONE Stop: 05/23/24 12:57 Last Admin: 05/23/24 13:37 Dose: Not Given Hydromorphone HCl (Hydromorphone Inj 2 Mg/Ml Vial) 0.25 mg IVP X1 ONE Stop: 05/17/24 21:56 Last Admin: 05/17/24 22:05 Dose: 0.25 mg Hydromorphone HCl (Hydromorphone Inj 2 Mg/Ml Vial) 0.5 mg IVP X1 ONE Stop: 05/17/24 22:55 Last Admin: 05/17/24 23:01 Dose: 0.5 mg Sodium Chloride (Ns) 1,000 mls @ 75 mls/hr IV .[id number] [facility] Stop: 05/18/24 08:00 Last Infusion: 05/17/24 21:14 Dose: Infused Piperacillin Sod/Tazobactam (Sod 3.375 gm/ Sodium Chloride) 50 mls @ 100 mls/hr IV Q8HR [facility] Stop: 05/25/24 05:59 Last Infusion: 05/18/24 19:11 Dose: Infused Azithromycin 250 mg/ Sodium (Chloride) 250 mls @ 250 mls/hr IV DAILY@2100 [facility] Stop: 05/25/24 20:59 Sodium Chloride (Ns) 1,000 mls @ 75 mls/hr IV .[id number] BRIGIDO Stop: 06/16/24 20:14 Last Admin: 05/21/24 08:50 Dose: 75 mls/hr Azithromycin 250 mg/ Sodium (Chloride) 250 mls @ 250 mls/hr IV X1 ONE Stop: 05/17/24 21:14 Last Infusion: 05/18/24 19:09 Dose: Infused Piperacillin Sod/Tazobactam (Sod 4.5 gm/ Sodium Chloride) 100 mls @ 200 mls/hr IV X1 ONE Stop: 05/17/24 20:44 Last Infusion: 05/18/24 19:11 Dose: Infused Ciprofloxacin/Dextrose (Cipro Ivpb) 400 mg in 200 mls @ 200 mls/hr IV Q12HR BRIGIDO Stop: 05/25/24 10:03 Last Admin: 05/23/24 10:07 Dose: 200 mls/hr Propofol (Diprivan Ivpb) 1,000 mg in 100 mls @ 2.233 mls/hr IV .Q24H PRN; Protocol PRN Reason: PER PROTOCOL Stop: 06/22/24 12:55 Fentanyl Citrate (Sublimaze Inj 2,500 Mcg/250 Ml Bag) 2,500 mcg in 250 mls @ 2.5 mls/hr IV .Q24H PRN; Protocol PRN Reason: PER PROTOCOL Stop: 05/28/24 12:55 Lactobacillus Rhamnosus (Lactobacillus Rhamnosus 1 Cap) 1 cap PO BID BRIGIDO Stop: 06/18/24 08:59 Last Admin: 05/20/24 09:05 Dose: 1 cap Levetiracetam (Levetiracetam Inj 100 Mg/Ml Vial 5ml) 1,000 mg IV Q12HR [facility] Stop: 06/22/24 20:59 Methadone HCl (Methadone Hcl 10 Mg Tablet) 109 mg PO QDAY [facility] Stop: 05/23/24 11:44 Metoclopramide HCl (Metoclopramide Inj 5 Mg/Ml Vial 2 Ml) 10 mg IVP X1 ONE; Protocol Stop: 05/20/24 14:46 Last Admin: 05/20/24 16:23 Dose: 10 mg Morphine Sulfate (Morphine Sulf Inj 10 Mg/Ml Vial) 1 mg IVP X1 ONE Stop: 05/18/24 20:35 Last Admin: 05/18/24 20:51 Dose: 1 mg Morphine Sulfate (Morphine Sulf Inj 10 Mg/Ml Vial) 2 mg IVP Q4HR PRN PRN Reason: BREAKTHROUGH PAIN Stop: 05/24/24 13:59 Last Admin: 05/20/24 18:01 Dose: 2 mg Morphine Sulfate (Morphine Sulf Inj 10 Mg/Ml Vial) 1 mg IVP X1 ONE Stop: 05/19/24 19:55 Last Admin: 05/19/24 20:11 Dose: Not Given Morphine Sulfate (Morphine Sulf Inj 10 Mg/Ml Vial) 4 mg IV Q3HR PRN PRN Reason: PAIN SCALE 4-10(Mod-Sev Stop: 05/27/24 09:42 Last Admin: 05/22/24 09:56 Dose: 4 mg Morphine Sulfate (Morphine Sulf Inj 10 Mg/Ml Vial) 2 mg IV Q4HR PRN PRN Reason: PAIN SCALE 4-10(Mod-Sev Stop: 05/27/24 09:42 Last Admin: 05/22/24 18:31 Dose: 2 mg Morphine Sulfate (Morphine Sulf Inj 10 Mg/Ml Vial) 2 mg IVP X1 ONE Stop: 05/23/24 12:41 Last Admin: 05/23/24 12:45 Dose: 2 mg Oxycodone/Acetaminophen (Oxycodone/Apap 5/325 Tablet) 1 tab PO Q6H PRN PRN Reason: PAIN SCALE 4-6 (Moderate Stop: 05/22/24 19:57 Last Admin: 05/17/24 23:55 Dose: 1 tab Polyethylene Glycol/Electrolytes (Na [place]/Nahco3/Hiro/Peg (Golytely) 4,000 Ml Btl) 4,000 ml PO X1 ONE Stop: 05/19/24 14:08 Last Admin: 05/19/24 14:29 Dose: 4,000 ml Polyethylene Glycol/Electrolytes (Na Hall/Nahco3/Hiro/Peg (Golytely) 4,000 Ml Btl) 4,000 ml PO X1 ONE Stop: 05/22/24 11:57 Last Admin: 03/02/25 12:11 Dose: 4,000 ml Potassium Phos/Sodium Phos (Naph,[facility] Mbdb 1 Packet (1.5 Gm)) 1 packet PO X1 ONE Stop: 05/19/24 08:11 Last Admin: 05/19/24 09:24 Dose: 1 packet Rocuronium [place] (Rocuronium Inj 10 Mg/Ml Vial 10 Ml) 100 mg IVP X1 ONE Stop: 05/23/24 12:57 Last Admin: 05/23/24 13:38 Dose: Not Given Simethicone (Simethicone 80 Mg Chew) 80 mg PO TID BRIGIDO Stop: 06/20/24 21:59 Last Admin: 05/23/24 13:37 Dose: Not Given Sodium Chloride (Sodium Chloride Rt 10% 15 Ml Nebu) 5 ml INH X1 ONE Stop: 05/17/24 19:59 Last Admin: 05/23/24 13:42 Dose: Not Given Assessment & Plan Plan 58-year-old female with PMHx of COPD on 3 L home oxygen, pulmonary fibrosis ,HTN, and depression who presented with worsening abdominal pain, diarrhea with bright red NM bleed and admitted for workup and management of abdominal pain and diarrhea. 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 -Will continue to monitor RESPI #Acute on chronic hypoxic respi failure #Community-acquired pneumonia #Severe pulmonary fibrosis #COPD on 3.5 L home oxygen -She has a history of COPD on 3 L of home oxygen and pulmonary fibrosis on home steroids -Chest x-ray showed extensive bilateral consolidation more in the middle lobes. -CT scan showed severe pulmonary fibrosis -She reports taking prednisone at home prn if she has excerbation . And as per family primary is trying to keep her in lung transplant list -PSI/PORT : 48 points ; Risk class II -DODIE score 3 points , (13 %, 28 day mortality ) -Covid negative -RSV negative -Influenza negative -Blood cultures negative -Continue DuoNebs every 8 hrly -Discontinued ciprofloxacin and started her on ceftriaxone [facility] -As per daughter she has some valve issues and trying to follow Dr allyson Hathaway , our record has echo from 2018 with EF of 55/60 % -will follow up with Echo #Primary hypertension -BP today- 155/79 -From home medication reconciliation, patient appears to be no longer taking clonidine. -continue to monitor blood pressure while in hospital. -May consider starting antihypertensives based on blood pressure trend GI #Diffuse colitis, possible GI infection #GI bleed rule out #Ileus ruled out #Leukocytosis #h pylori -Patient presented with 1 week of progressively worsening abdominal pain and watery diarrhea with occasional bright red blood. -On exam on admission patient has diffuse generalized tenderness to palpation of the abdomen with rebound tenderness but no guarding. DDx: Medication side effect, IBS, IBD -CT abdomen pelvis showed Liver mildly irregular in contour. Severe diffuse hyperemia and inflammatory change involving the entire colon. -Liver ultrasound significant for fatty liver with trace free fluid. -On admission WBC 17.2??>12.5 -Blood culture negative x 48 hours preliminary -Hemoglobin stable at 12.7 on admission and hemoglobin is 9.4 today -C. difficile PCR negative -Stool for WBCs negative -Hepatitis panel negative -Stool culture negative -ANCA studies pending -Stool calprotectin, Giardia and norovirus pending -Avoiding NSAIDs -Pro bri 0.91 -GI, Dr. Corley consulted and closely following the case. Appreciate recommendations. 05/21: Patient had worsening abdominal distention. AXR was ordered which showed severely dilated bowel loops.GoLytely put on hold. Fleet enema x 1 orderedGI, Dr. Corley consulted. Rectal tube was placed. -05/22/2024?will start patient on Movantik 25 mg p.o. daily as patient takes methadone and is likely having ileus due to opioid use. Will also restart GoLytely as tolerated and attempt to clear the patient for colonoscopy -05/23/2024- Discontinue ciprofloxacin and started the patient on ceftriaxone, will continue metronidazole . simethicone and GoLytely discontinued .Dr corley on board RENAL #Lactic acidosis -type A (hypoxia) vs type B (seizure ) -will trend lactate -Continue to monitor #respiratory acidosis -likely sec to underlying copd and pulmonary fibrosis -currently on high flow -we will follow repeat ABG #Mild REBA -currently 1.4 , most likely pre renal , -will continue to monitor INFECTIOUS -As above GI ENDO Stable PSYCHIATRY #Depression -Home medication fluoxetine 40mg po BID and Quetiapine 400 mg po Qday. - Fluoxetine on hold due to concern of diarrhea - Continue quetiapine 400 Mg at bedtime #Opioid dependence, on methadone therapy. -continue home methadone. HEMATOLOGY Normocytic anemia -today Hb is 9.4 , -will do iron studies -will continue to monitor , transfuse if Hb is <7 Health maintenance: Disposition: ICU for acute hypoxic respi failure for close monitoring Diet: NPO Lines: pIVs GI Prophylaxis: Pantoprazole IV Thrombo Prophylaxis: SCDs Code status: FULL CODE I discussed patient's care with attending physician, Dr Sally Alonzo, Attending Provider Attestation/Addendum Patient seen and examined with the above resident, Darby Alonzo MD. I agree with the findings, assessment, and plan of care as documented except for any differences below. Patient initially evaluated during rapid response. Patient on floor with bedside teach. She was lowered to the ground with loss of consciousness and suspected seizure like activity. We did send labs including lactate and prolactin to help discern etiology.Severely hypoxic initially. Glucose stable. She was given Movantik today and had a large BM at the time of decompensation, on the commode at bedside. Patient urgently transferred to the ICU given possible post-ictal state. She was difficult to redirect once she became arousable again. No BZs given. No incontinence or tongue biting of note but had just gone to the bathroom and already soiled. Patient upon initiation of additional supplemental oxygen showed continued improvement. Will be able to avoid intubation at this time but has limited reserve given long standing underlying lung disease. She will need close monitoring in the ICU for the next 24 hours. Adjustments made to antibiotics as these are the newest medications and may explain the onset of seizure now. Medications for anxiety/ pain to be continued. Monitor neurological serially per unit protocol. Will reassess tomorrow for further adjustments. Diarrhea initially lead to constipation form opiates and likely resolution of gastroenteritis/ colitis. GI is following as well. Total critical care time: I personally spent 50 minutes for review of physiologic parameters, directing plan of care, coordination of care with medicine, and counseling patient at bedside. 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 Patient continues to require critical care service for acute encephalopathy 2/2 seizure, acute on chronic hypoxic respiratory failure, and colitis with acute kidney injury. She remains at significant risk for further morbidity and mortality.
[2024-05-23] MEDS: cefTRIAXone 1,000 MG in SODIUM CHLORIDE 0.9% (Popper) 50 ML 100 MG IV (14:49)
--- NOTE | 2024-05-23 15:50 | ESPR_ITS ---
Documentation for date of: 05/23/24 Subjective Subjective Interval history: Patient evaluated She is moved to the ICU it appeared when she was on the toilet had a seizure and had a large bowel movement I have postponed the colonoscopy Abdomen is soft nontender nondistended active bowel sounds colonoscopy was scheduled because of the abnormal CT scan of the abdomen pelvis showing infectious versus inflammatory bowel disease Exam Vital Signs Temp Pulse Resp BP Pulse Ox O2 Del Method O2 Flow Rate 97.2 F 96 20 155/79 H 98 Nasal Cannula 40 05/23/24 12:14 05/23/24 15:00 05/23/24 15:00 05/23/24 15:00 05/23/24 15:00 05/23/24 12:00 05/23/24 14:45 FiO2 80 05/23/24 14:45 Objective Labs 05/23/24 04:19 05/23/24 12:55 Labs: Laboratory Results - last 24 hr 05/18/24 05/23/24 05/23/24 05:24 04:19 12:35 WBC 12.5 H RBC 3.63 L Hgb 9.4 L Hct 31.4 L MCV 87 MCH 25.9 MCHC 29.9 L RDW Std Deviation 49.3 H Plt Count 137 L D Neut % (Auto) 78 Lymph % (Auto) 9 L [place] % (Auto) 10 Eos % (Auto) 1 Baso % (Auto) 0 Neut # (Auto) 9.7 H Lymph # (Auto) 1.1 [place] # (Auto) 1.2 H Eos # (Auto) 0.2 Baso # (Auto) 0.0 Immature Gran # (Auto) 0.22 H Absolute Nucleated RBC 0.00 Immature Gran % 2 H Nucleated RBC % 0 Puncture Site Right Radial ABG pH 7.17 L* ABG pCO2 71 H* ABG pO2 68 L ABG HCO3 26 ABG O2 Saturation 89 L ABG Base Excess -3 FiO2 100 Sodium 143 Potassium 4.1 Chloride 107 Carbon Dioxide 29.1 Anion Gap 7 BUN 6 L Creatinine 1.1 Estim Creat Clear Calc 47.5 L eGFR 58 L BUN/Creatinine Ratio 5 L Glucose 64 L Calculated Osmolality 280 Lactic Acid Calcium 7.9 L Corrected Calcium 9.3 Total Bilirubin 0.4 AST 30 ALT 11 Alkaline Phosphatase 62 Lactate Dehydrogenase Total Creatine Kinase Total Protein 4.6 L Albumin 2.3 L Globulin 2.3 Albumin/Globulin Ratio 1.0 L Procalcitonin Stl Giardia Antigen NOT DETECTED Stool H. pylori Ag DETECTED A Stool Norovirus Ag NOT DETECTED 05/23/24 05/23/24 12:55 12:55 WBC RBC Hgb Hct MCV MCH MCHC RDW Std Deviation Plt Count Neut % (Auto) Lymph % (Auto) [place] % (Auto) Eos % (Auto) Baso % (Auto) Neut # (Auto) Lymph # (Auto) [place] # (Auto) Eos # (Auto) Baso # (Auto) Immature Gran # (Auto) Absolute Nucleated RBC Immature Gran % Nucleated RBC % Puncture Site ABG pH ABG pCO2 ABG pO2 ABG HCO3 ABG O2 Saturation ABG Base Excess FiO2 Sodium 145 Potassium 3.7 Chloride 106 Carbon Dioxide 27.6 Anion Gap 11 BUN 10 Creatinine 1.4 H Estim Creat Clear Calc 40.4 L eGFR 44 L BUN/Creatinine Ratio 7 L Glucose 101 D Calculated Osmolality 287 Lactic Acid 5.1 H* Calcium 8.2 L Corrected Calcium 9.4 Total Bilirubin 0.6 AST 34 37 H ALT 10 Alkaline Phosphatase 74 Lactate Dehydrogenase 715 H Total Creatine Kinase 353 H Total Protein 5.1 L Albumin 2.5 L Globulin 2.6 Albumin/Globulin Ratio 1.0 L Procalcitonin 0.91 H Stl Giardia Antigen Stool H. pylori Ag Stool Norovirus Ag Impressions Impression: # Possible seizure versus vasovagal episode # Improved abdominal distention after GoLytely Hold of the colonoscopy till her other issues are resolved ABG Interpretation ABG results: 05/23/24 12:35 ABG pH 7.17 L* ABG pCO2 71 H* ABG pO2 68 L ABG HCO3 26 ABG O2 Saturation 89 L ABG Base Excess -3 Assessment & Plan A&P Narrative # Pain abdomen with bloody diarrhea abnormal CT scan of the abdomen pelvis differential diagnosis include infectious colitis versus inflammatory bowel disease Plan stool for Gram stain stool culture and sensitivity stool C. difficile CRP ANCA antibody Fecal calprotectin If above negative we will consider fiberoptic colonoscopy with possible biopsies Agree with broad-spectrum antibiotics Thank you very much for the opportunity to participate in the care of this patient Time Spent With Patient Time: Total time spent is greater than 50% in coordination of care (as documented) at patient's floor/unit and/or counseling patient:
[2024-05-23 16:01] LABS: Reflex Lactate? Y
[2024-05-23 16:31] LABS: Base Excess 6 (-3-3); HCO3 32 mEq/L (20-26); Inspired Oxygen, FIO2 60 %; O2 Saturation 98 % (91-98); PCO2 56 mmHg (32.0-48.0); PO2 104 mmHg (83-108); pH, Arterial 7.37 (7.35-7.45)
[2024-05-23 16:32] LABS: Allen Test Performed/OK; Puncture Site Right Radial
[2024-05-23 16:51] LABS: Lactic Acid, 3 HR 1.1 mMol/L (0.4-2.0)
[2024-05-23 18:53] LABS: Lactate (Lactic Acid) 0.9 mMol/L (0.4-2.0)
[2024-05-23] MEDS: ACETAMINOPHEN 325 MG TABLET 650 MG PO (19:32)
[2024-05-23] MEDS: AMITRIPTYLINE HCL 25 MG TABLET 75 MG PO (21:18)
[2024-05-23] MEDS: QUEtiapine FUMARATE 100 MG TABLET 400 MG PO (21:18)
--- NOTE | 2024-05-23 23:50 | ESPR_ITS ---
Documentation for date of: 05/23/24 Subjective Subjective Interval history: Patient was seen in ICU today at the bedside. She did have one episode today after which her O2 sats dropped and she was transferred to ICU from third floor, following rapid response Exam - Neurology Vital Signs Temp Pulse Resp BP Pulse Ox O2 Del Method O2 Flow Rate 98.6 F 92 24 H 154/74 H 96 BiPAP 30 05/23/24 20:00 05/23/24 20:00 05/23/24 20:00 05/23/24 20:00 05/23/24 20:00 05/23/24 20:00 05/23/24 18:50 FiO2 45 05/23/24 18:50 Narrative Exam GENERAL APPEARANCE: Well hydrated, well-nourished in no acute distress. HEENT: Normocephalic, atraumatic, extraocular movements intact. Pupils: Equal reacting to light and accommodation NECK: Supple, no JVD or bruits. CARDIOVASULAR: Heart: S1, S2 heard, regular without S3-S4 or murmur no rubs or gallops. LUNGS/CHEST: Clear to auscultation bilaterally. No rails, rhonchi, or wheezing. Normal inspection. ABDOMEN: Soft, nontender, with normal bowel sounds. No pulsatile masses. No rebound, rigidity, or guarding. Normal inspection and palpation. EXTREMITIES: Normal inspection and palpation. No edema, clubbing or cyanosis. SKIN: Warm and dry without rashes. Normal inspection. MUSCULOSKELETAL: No cervical, thoracic, lumbar or midline bony tenderness. Normal inspection. NEURO: Alert, awake and oriented x3. Cranial nerves: II through XII grossly intact. Speech and language: Normal with no dysarthria or dysphasia. Motor system: Tone and bulk: Normal: Strength: 5 out of 5 in all 4 extremities; No pronator drift noted. Deep tendon reflexes: 2+ bilaterally symmetrical. Plantar reflex: Downgoing bilaterally. Sensory system: Intact to all modalities of sensation bilaterally. Coordination: Intact to [id number]-[id number]-pulrl and jzgw-toan-[id number] test bilaterally. No ataxia, no dysmetria, or dysdiadochokinesia noted. No intention tremors noted. Gait: Not tested. No signs of meningeal irritation noted. PSYCHIATRIC: Normal mood and affect. Objective Labs 05/25/24 04:44 05/25/24 04:44 Labs: Laboratory Results - last 24 hr 05/18/24 05/23/24 05/23/24 05:24 04:19 12:35 WBC 12.5 H RBC 3.63 L Hgb 9.4 L Hct 31.4 L MCV 87 MCH 25.9 MCHC 29.9 L RDW Std Deviation 49.3 H Plt Count 137 L D Neut % (Auto) 78 Lymph % (Auto) 9 L [place] % (Auto) 10 Eos % (Auto) 1 Baso % (Auto) 0 Neut # (Auto) 9.7 H Lymph # (Auto) 1.1 [place] # (Auto) 1.2 H Eos # (Auto) 0.2 Baso # (Auto) 0.0 Immature Gran # (Auto) 0.22 H Absolute Nucleated RBC 0.00 Immature Gran % 2 H Nucleated RBC % 0 Puncture Site Right Radial ABG pH 7.17 L* ABG pCO2 71 H* ABG pO2 68 L ABG HCO3 26 ABG O2 Saturation 89 L ABG Base Excess -3 FiO2 100 Sodium 143 Potassium 4.1 Chloride 107 Carbon Dioxide 29.1 Anion Gap 7 BUN 6 L Creatinine 1.1 Estim Creat Clear Calc 47.5 L eGFR 58 L BUN/Creatinine Ratio 5 L Glucose 64 L Calculated Osmolality 280 Lactic Acid Calcium 7.9 L Corrected Calcium 9.3 Total Bilirubin 0.4 AST 30 ALT 11 Alkaline Phosphatase 62 Lactate Dehydrogenase Total Creatine Kinase Total Protein 4.6 L Albumin 2.3 L Globulin 2.3 Albumin/Globulin Ratio 1.0 L Procalcitonin Stl Giardia Antigen NOT DETECTED Stool H. pylori Ag DETECTED A Stool Norovirus Ag NOT DETECTED 05/23/24 05/23/24 05/23/24 12:55 12:55 16:24 WBC RBC Hgb Hct MCV MCH MCHC RDW Std Deviation Plt Count Neut % (Auto) Lymph % (Auto) [place] % (Auto) Eos % (Auto) Baso % (Auto) Neut # (Auto) Lymph # (Auto) [place] # (Auto) Eos # (Auto) Baso # (Auto) Immature Gran # (Auto) Absolute Nucleated RBC Immature Gran % Nucleated RBC % Puncture Site Right Radial ABG pH 7.37 D ABG pCO2 56 H D ABG pO2 104 D ABG HCO3 32 H ABG O2 Saturation 98 ABG Base Excess 6 H FiO2 60 Sodium 145 Potassium 3.7 Chloride 106 Carbon Dioxide 27.6 Anion Gap 11 BUN 10 Creatinine 1.4 H Estim Creat Clear Calc 40.4 L eGFR 44 L BUN/Creatinine Ratio 7 L Glucose 101 D Calculated Osmolality 287 Lactic Acid 5.1 H* Calcium 8.2 L Corrected Calcium 9.4 Total Bilirubin 0.6 AST 34 37 H ALT 10 Alkaline Phosphatase 74 Lactate Dehydrogenase 715 H Total Creatine Kinase 353 H Total Protein 5.1 L Albumin 2.5 L Globulin 2.6 Albumin/Globulin Ratio 1.0 L Procalcitonin 0.91 H Stl Giardia Antigen Stool H. pylori Ag Stool Norovirus Ag 05/23/24 05/23/24 16:30 18:40 WBC RBC Hgb Hct MCV MCH MCHC RDW Std Deviation Plt Count Neut % (Auto) Lymph % (Auto) [place] % (Auto) Eos % (Auto) Baso % (Auto) Neut # (Auto) Lymph # (Auto) [place] # (Auto) Eos # (Auto) Baso # (Auto) Immature Gran # (Auto) Absolute Nucleated RBC Immature Gran % Nucleated RBC % Puncture Site ABG pH ABG pCO2 ABG pO2 ABG HCO3 ABG O2 Saturation ABG Base Excess FiO2 Sodium Potassium Chloride Carbon Dioxide Anion Gap BUN Creatinine Estim Creat Clear Calc eGFR BUN/Creatinine Ratio Glucose Calculated Osmolality Lactic Acid 1.1 0.9 Calcium Corrected Calcium Total Bilirubin AST ALT Alkaline Phosphatase Lactate Dehydrogenase Total Creatine Kinase Total Protein Albumin Globulin Albumin/Globulin Ratio Procalcitonin Stl Giardia Antigen Stool H. pylori Ag Stool Norovirus Ag ABG Interpretation ABG results: 05/23/24 05/23/24 12:35 16:24 ABG pH 7.17 L* 7.37 D ABG pCO2 71 H* 56 H D ABG pO2 68 L 104 D ABG HCO3 26 32 H ABG O2 Saturation 89 L 98 ABG Base Excess -3 6 H Assessment & Plan Assessment and plan (1) AMS (altered mental status): Status: Acute Assessment and plan: Intermittent episodes of panic attack likely from underlying anxiety. Follow-up with EEG to rule out seizures. Continue with the Keppra and seizure precautions for now until the EEG is done Continue with amitriptyline, Seroquel and fluoxetine (2) Hypoxia: Status: Acute Assessment and plan: On high flow oxygen (3) Pneumonia: Status: Acute Assessment and plan: Continue with antibiotics as per primary team (4) Colitis: Status: Acute Assessment and plan: On metronidazole
[2024-05-24] VITALS (32 sets, daily range): BP systolic 103–161; BP diastolic 57–127; PULSE 85–115; RESP 16–51; TEMP 36.6–37.3; O2SAT 79–100
[2024-05-24 01:26] LABS: Lactate (Lactic Acid) 0.6 mMol/L (0.4-2.0)
[2024-05-24] MEDS: HYDROcodone/APAP 5/325 TABLET 1 TAB PO ×2 (05:04→20:03)
[2024-05-24] MEDS: metroNIDAZOLE/NS 500 MG IVPB 500 MG/100 ML BAG 200 MG IV ×3 (05:05→21:33)
[2024-05-24 05:19] LABS: Basophils # (Auto) 0.1 Thou/mm3 (0.0-0.2); Basophils % (Auto) 0 % (0-2.5); Eosinophils # (Auto) 0.1 Thou/mm3 (0.0-0.5); Eosinophils % (Auto) 1 % (0-10); Hematocrit 29.1 % (36.0-46.0); Immature Granulocytes % (Auto) 2 % (0-0); Immature Granulocytes Auto 0.25 Thou/mm3 (0.00-0.00); Lymphocytes # (Auto) 1.2 Thou/mm3 (1.0-4.8); Lymphocytes % (Auto) 9 % (10-50); Mean Corpuscular HGB Conc 30.9 g/dl (31.0-37.0); Mean Corpuscular Hemoglobin 25.9 pg (25.0-35.0); Mean Corpuscular Volume 84 fL (80-100); Monocytes # (Auto) 1.3 Thou/mm3 (0.0-0.8); Monocytes % (Auto) 9 % (0-12); Neutrophils # (Auto) 11.3 Thou/mm3 (1.8-7.7); Neutrophils % (Auto) 79 % (37-80); Nucleated Red Blood Cell % 0 /100 WBC (0); Platelet Count 107 Thou/mm3 (140-440); RDW Standard Deviation 49.7 fL (36.4-46.3); Red Blood Count 3.47 Miln/mm3 (4.00-5.20); White Blood Count 14.3 Thou/mm3 (3.6-11.0)
[2024-05-24 05:58] LABS: Alanine Aminotransferase 16 U/L (10-49); Albumin, Serum 2.3 gm/dL (3.5-5.0); Albumin/Globulin Ratio 0.9 (1.2-2.2); Alkaline Phosphatase 69 U/L (46-116); Anion Gap 10 (7-16); Aspartate Amino Transferase 73 U/L (0-34); BUN/Creatinine Ratio 10 Ratio (12-20); Bilirubin,Total 0.4 mg/dL (0.3-1.2); Blood Urea Nitrogen 14 mg/dL (9-23); Calcium 8.2 mg/dL (8.3-10.6); Calcium (Corrected) 9.6 mg/dL (8.5-10.1); Carbon Dioxide 28.2 mMol/L (20.0-31.0); Chloride 107 mMol/L (98-107); Creatinine (Component) 1.4 mg/dL (0.6-1.3); Estimated Creatinine Clearance 40.4 mL/min (>60); Globulin 2.6 gm/dL (2.3-3.5); Glucose 59 mg/dL (74-106); Osmolality,Calculated 287 (275-295); Potassium 3.9 mMol/L (3.4-5.1); Sodium 145 mMol/L (136-145); Total Protein 4.9 gm/dL (5.7-8.2); eGFR 44 See Note
[2024-05-24] MEDS: ALBUTEROL/IPRATROPIUM (Duoneb) RT SOL 3 ML NEBU INH ×3 (06:34→22:34)
[2024-05-24 06:37] LABS: Calprotectin, Stool* 111 mcg/g
--- NOTE | 2024-05-24 08:08 | PC.NURSE ---
Center was given by noc nurse Félix. Reassessment was done at 0700 by day nurse Ally.
[2024-05-24] MEDS: cefTRIAXone 1,000 MG in SODIUM CHLORIDE 0.9% (Popper) 50 ML 100 MG IV (08:20)
[2024-05-24] MEDS: PANTOPRAZOLE INJ 40 MG VIAL IVP (08:21)
[2024-05-24] MEDS: AZITHROMYCIN INJ 500 MG in SODIUM CHLORIDE 0.9% 250 ML 250 ML 250 MG IV (08:22)
[2024-05-24] MEDS: levETIRAcetam INJ 100 MG/ML VIAL 5ML 1000 MG IV ×2 (08:22→21:31)
[2024-05-24] MEDS: NALOXEGOL OXALATE 25 MG TABLET (NON-FORMULARY) PO (08:36)
[2024-05-24] MEDS: METHADONE PO (08:36)
--- NOTE | 2024-05-24 13:30 | XR_ITS ---
Examination: AP chest single view Technique one AP portable upright chest single view Exam date and time: May 24, 2024 1353 hours Comparison May 23, 2024 INDICATIONS: Onset shortness of breath hypoxia today. FINDINGS: Severe bilateral pneumonia ARDS pattern Biapical pleural thickening Mild prominence left ventricle Prominent osteopenia IMPRESSION: Again noted severe pneumonia ARDS pattern
--- NOTE | 2024-05-24 13:38 | PC.SS ---
Update: Patient remains on high flow oxygen. Plan is for patient to obtain colonoscopy once oxygen requirements are stable. Dr. Lopez to conduct procedure.
[2024-05-24] MEDS: SODIUM CHLORIDE 0.9% 1000 ML 1,000 ML 80 ML IV (14:21)
[2024-05-24] MEDS: SODIUM CHLORIDE RT 10% 15 ML NEBU 5 ML INH (15:55)
--- NOTE | 2024-05-24 16:16 | ESPR_ITS ---
Documentation for date of: 05/24/24 Subjective Subjective Interval history: patient was examined bedside this morning, she was transitioned to 5 L of oxygen via OxiMax. Around 9 AM she had another episode of possible panic attack/seizure activity and her oxygen demand increased. Currently on high flow he has only tried taking the high flow. EEG pending. Neurology on board. We are obtaining records of the pulmonary function test from her primary care physician. Exam Vital Signs Temp Pulse Resp BP Pulse Ox O2 Del Method O2 Flow Rate 98.7 F 96 35 H 154/77 H 94 L High Flow Nasal Cannula 25 05/24/24 12:00 05/24/24 15:59 05/24/24 15:59 05/24/24 15:00 05/24/24 15:59 05/24/24 12:00 05/24/24 15:59 FiO2 50 05/24/24 15:59 Narrative Exam GENERAL:Adult female on hospital bed on high flow HEENT: Normocephalic, atraumatic. Pupils are equal and reactive. Oral mucosa is moist. NECK: Supple, nontender, no JVD CHEST: Symmetrical, atraumatic and with equal expansion ,Nontender on palpation CARDIOVASCULAR: Heart regular rhythm & rate. S1/S2. no murmur or gallop rub or extra beats. LUNGS: b/l equal air entry ABDOMEN: mildely distended, mild tender on palpation. EXTREMITIES:Moves all 4 extremities,No B/L LE edema. SKIN: Warm and dry, no jaundice or rashes noted. NEURO: Patient is AO x 3, Cranial nerves II through XII grossly intact. There is no focal neurologic deficits noted. PSYCHIATRIC: Patient is in normal mood, cooperative, no SI or HI or hallucinations. Objective Labs 05/24/24 04:40 05/24/24 04:40 Labs: Laboratory Results - last 24 hr 05/17/24 05/23/24 05/23/24 05:24 16:24 16:30 WBC RBC Hgb Hct MCV MCH MCHC RDW Std Deviation Plt Count Neut % (Auto) Lymph % (Auto) [place] % (Auto) Eos % (Auto) Baso % (Auto) Neut # (Auto) Lymph # (Auto) [place] # (Auto) Eos # (Auto) Baso # (Auto) Immature Gran # (Auto) Absolute Nucleated RBC Immature Gran % Nucleated RBC % Puncture Site Right Radial ABG pH 7.37 D ABG pCO2 56 H D ABG pO2 104 D ABG HCO3 32 H ABG O2 Saturation 98 ABG Base Excess 6 H FiO2 60 Sodium Potassium Chloride Carbon Dioxide Anion Gap BUN Creatinine Estim Creat Clear Calc eGFR BUN/Creatinine Ratio Glucose Calculated Osmolality Lactic Acid 1.1 Calcium Corrected Calcium Total Bilirubin AST ALT Alkaline Phosphatase Total Protein Albumin Globulin Albumin/Globulin Ratio Stool Calprotectin 111 05/23/24 05/24/24 05/24/24 18:40 00:56 04:40 WBC 14.3 H RBC 3.47 L Hgb 9.0 L Hct 29.1 L MCV 84 MCH 25.9 MCHC 30.9 L RDW Std Deviation 49.7 H Plt Count 107 L D Neut % (Auto) 79 Lymph % (Auto) 9 L [place] % (Auto) 9 Eos % (Auto) 1 Baso % (Auto) 0 Neut # (Auto) 11.3 H Lymph # (Auto) 1.2 [place] # (Auto) 1.3 H Eos # (Auto) 0.1 Baso # (Auto) 0.1 Immature Gran # (Auto) 0.25 H Absolute Nucleated RBC 0.00 Immature Gran % 2 H Nucleated RBC % 0 Puncture Site ABG pH ABG pCO2 ABG pO2 ABG HCO3 ABG O2 Saturation ABG Base Excess FiO2 Sodium 145 Potassium 3.9 Chloride 107 Carbon Dioxide 28.2 Anion Gap 10 BUN 14 Creatinine 1.4 H Estim Creat Clear Calc 40.4 L eGFR 44 L BUN/Creatinine Ratio 10 L Glucose 59 L Calculated Osmolality 287 Lactic Acid 0.9 0.6 Calcium 8.2 L Corrected Calcium 9.6 Total Bilirubin 0.4 AST 73 H ALT 16 Alkaline Phosphatase 69 Total Protein 4.9 L Albumin 2.3 L Globulin 2.6 Albumin/Globulin Ratio 0.9 L Stool Calprotectin ABG Interpretation ABG results: 05/23/24 05/23/24 12:35 16:24 ABG pH 7.17 L* 7.37 D ABG pCO2 71 H* 56 H D ABG pO2 68 L 104 D ABG HCO3 26 32 H ABG O2 Saturation 89 L 98 ABG Base Excess -3 6 H Quality Measures Quality Measures VTE prophylaxis Assessment & Plan Assessment Current Active Medications: Generic Name Dose Route Start Last Admin Trade Name Freq PRN Reason Stop Dose Admin Acetaminophen 650 mg 05/21/24 14:55 05/23/24 19:32 Acetaminophen 325 Mg Tablet PO 06/16/24 19:57 650 mg Q6H PRN Administration Fever >100.4 or pain 1-3 Hydrocodone Bitart/Acetaminophen 1 tab 05/21/24 14:53 05/24/24 05:04 Hydrocodone/Apap 5/325 Tablet PO 05/26/24 14:52 1 tab Q6HR PRN Administration PAIN SCALE 4-10(Mod-Sev Albuterol/Ipratropium 3 ml 05/18/24 23:00 05/24/24 14:02 Albuterol/Ipratropium (Duoneb) Rt Carmen 3 Ml Nebu INH 06/17/24 22:59 3 ml Q8HRRT BRIGIDO Administration Amitriptyline HCl 75 mg 05/22/24 21:00 05/23/24 21:18 Amitriptyline Hcl 25 Mg Tablet PO 06/21/24 20:59 75 mg HS BRIGIDO Administration Methadone 109 Mg 0 ea 05/19/24 09:45 05/24/24 08:36 Solution PO 06/18/24 09:44 1 bottle QDAY BRIGIDO Administration Protocol Metronidazole 500 mg in 100 mls @ 200 mls/hr 05/18/24 10:05 05/24/24 14:22 Flagyl 500 Mg Iv IV 05/25/24 10:04 200 mls/hr Q8HR BRIGIDO Administration Ceftriaxone Sodium 1,000 mg/ 50 mls @ 100 mls/hr 05/23/24 14:21 05/24/24 08:20 Sodium Chloride IV 05/30/24 14:20 100 mls/hr QDAY BRIGIDO Administration Azithromycin 500 mg/ Sodium 250 mls @ 250 mls/hr 05/24/24 08:00 05/24/24 08:22 Chloride IV 05/31/24 07:59 250 mls/hr QDAY BRIGIDO Administration Sodium Chloride 1,000 mls @ 80 mls/hr 05/24/24 13:39 05/24/24 14:21 Ns IV 06/23/24 13:38 80 mls/hr .[id number] BRIGIDO Administration Levetiracetam 1,000 mg 05/23/24 13:25 05/24/24 08:22 Levetiracetam Inj 100 Mg/Ml Vial 5ml IV 06/22/24 13:24 1,000 mg Q12HR BRIGIDO Administration Naloxegol 25 mg 05/23/24 09:00 05/24/24 08:36 Naloxegol Oxalate 25 Mg Tablet (Non-Formulary) PO 06/22/24 08:59 25 mg QDAY BRIGIDO Administration Naloxone HCl 0.04 mg 05/22/24 09:43 Naloxone Inj 1 Mg/Ml Syringe 2 Ml IV 06/21/24 09:42 Q3M PRN OPIATE REVERSAL Ondansetron HCl 4 mg 05/17/24 19:58 05/20/24 09:14 Ondansetron Inj 2 Mg/Ml Inj 2 Ml IV 06/16/24 19:57 4 mg Q6H PRN Administration NAUSEA OR VOMITING Protocol Pantoprazole Sodium 40 mg 05/17/24 20:15 05/24/24 08:21 Pantoprazole Inj 40 Mg Vial IVP 06/16/24 20:14 40 mg QDAY BRIGIDO Administration Quetiapine Fumarate 400 mg 05/18/24 21:00 05/23/24 21:18 Quetiapine Fumarate 100 Mg Tablet PO 06/17/24 20:59 400 mg HS BRIGIDO Administration Plan 58-year-old female with PMHx of COPD (less likely on 3 L home oxygen, pulmonary fibrosis ,HTN, and depression who presented with worsening abdominal pain, diarrhea with bright red NC bleed and admitted for workup and management of abdominal pain and diarrhea. 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 -Will continue to monitor RESPI #Acute on chronic hypoxic respi failure - on high flow #Community-acquired pneumonia #Severe pulmonary fibrosis #COPD (less likely on 3.5 L home oxygen -She has a history of pulmonary fibrosis on home steroids -Chest x-ray showed extensive bilateral consolidation more in the middle lobes. -CT scan showed severe pulmonary fibrosis -She reports taking prednisone at home prn if she has excerbation . And as per family primary is trying to keep her in lung transplant list -PSI/PORT : 48 points ; Risk class II -DODIE score 3 points , (13 %, 28 day mortality ) -Covid negative -RSV negative -Influenza negative -Blood cultures negative -Continue DuoNebs every 8 hrly -Discontinued ciprofloxacin and started her on ceftriaxone 05/24/2024: will get report of her PFT from primary care, Jimena Lin([phone]), looks more like pulmonary fibrosis secondary to covid pneumonia than Copd. continue highfloe and slowly tritate it . added azithromycin CVS -As per daughter she has some valve issues and trying to follow Dr allyson Hathaway , our record has echo from 2018 with EF of 55/60 % -will follow up with Echo #Primary hypertension -BP today- 155/77 -From home medication reconciliation, patient appears to be no longer taking clonidine. -continue to monitor blood pressure while in hospital. -May consider starting antihypertensives based on blood pressure trend GI #Diffuse colitis, possible GI infection #GI bleed #Ileus ruled out #Leukocytosis #h pylori -Patient presented with 1 week of progressively worsening abdominal pain and watery diarrhea with occasional bright red blood. -On exam on admission patient has diffuse generalized tenderness to palpation of the abdomen with rebound tenderness but no guarding. DDx: Medication side effect, IBS, IBD -CT abdomen pelvis showed Liver mildly irregular in contour. Severe diffuse hyperemia and inflammatory change involving the entire colon. -Liver ultrasound significant for fatty liver with trace free fluid. -On admission WBC 17.2??>12.5 -Blood culture negative x 48 hours preliminary -Hemoglobin stable at 12.7 on admission and hemoglobin is 9.4 today -C. difficile PCR negative -Stool for WBCs negative -Hepatitis panel negative -Stool culture negative -ANCA studies pending -Stool calprotectin, Giardia and norovirus pending -Avoiding NSAIDs -Pro bri 0.91 -GI, Dr. Corley consulted and closely following the case. Appreciate recommendations. 05/21: Patient had worsening abdominal distention. AXR was ordered which showed severely dilated bowel loops.GoLytely put on hold. Fleet enema x 1 orderedGI, Dr. Corley consulted. Rectal tube was placed. -05/22/2024?will start patient on Movantik 25 mg p.o. daily as patient takes methadone and is likely having ileus due to opioid use. Will also restart GoLytely as tolerated and attempt to clear the patient for colonoscopy -05/23/2024- Discontinue ciprofloxacin and started the patient on ceftriaxone, will continue metronidazole . simethicone and GoLytely discontinued .Dr corley on board -05/24/24: continue ceftriaxone and metronidazole ,NPO, still not passing gas . Dr corley on board , pending colonoscopy RENAL #Lactic acidosis -resolved -type A (hypoxia) vs type B (seizure ) -will trend lactate -Continue to monitor #respiratory acidosis -resolving -likely sec to underlying copd and pulmonary fibrosis -currently on high flow -we will follow repeat ABG #Mild REBA -currently 1.4 , most likely pre renal , -will continue to monitor INFECTIOUS -As above GI ENDO Stable PSYCHIATRY #Depression -Home medication fluoxetine 40mg po BID and Quetiapine 400 mg po Qday. - Fluoxetine on hold due to concern of diarrhea - Continue quetiapine 400 Mg at bedtime #Opioid dependence, on methadone therapy. -continue home methadone. HEMATOLOGY Normocytic anemia -today Hb is 9.0 , -will do iron studies -will continue to monitor , transfuse if Hb is <7 Health maintenance: Disposition: ICU for acute hypoxic respi failure for close monitoring Diet: NPO Lines: pIVs GI Prophylaxis: Pantoprazole IV Thrombo Prophylaxis: SCDs Code status: FULL CODE I discussed patient's care with attending physician, Dr Sally Alonzo, PGY-3 Attending Provider Attestation/Addendum Patient seen and examined with the above resident, Darby Alonzo MD. I agree with the findings, assessment, and plan of care as documented except for any differences below. Patient with improvement in oxygenation with repeat episode of anxiety provoking desaturation. Son reports that this happens at home and with exertion. She was being considered for lung transplant though no pulmonary follow up now. 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 No exposure history and no significant autoimmune disease. Patient with significant desaturation again in afternoon while on oxymask, [facility] Patient also with concenrn for GI bleed though this will need to wait for improvement prior to EGD/ colonoscopy. No need for transfusion at this time. No evidenc eof superimposed infection of the lungs. Remains on ceftriaxone/ flagyl. Will obtain EEG and if concern for EEG will need to consider changing flagyl as alternate medication. Prolactin after yesterday's episode was not significantly elevated to suggest seizure activity and lactic acid may have been form severe hypoxia and component of pulmonary hypertension. Will need to obtain repeat Echo on this admission. Will remain NPO with need to place NG should she have significant nausea/ vomiting. Bowel rest while ileus is ongoing though she did have BM yesterday after movantik. May be severe constipation due to opiates. Bowel regimen to begin tomorrow based on ongoing response. She remains on maintenance fluids for now Optimize K >4 nd Mg >2. Patient and her son updated at the bedside. Total critical care time: 45 minutes for review of physiologic parameters, directing plan of care, coordination of care with other specialists, and counseling patient and son at bedside. 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
[2024-05-24] MEDS: QUEtiapine FUMARATE 100 MG TABLET 400 MG PO (21:32)
[2024-05-24] MEDS: AMITRIPTYLINE HCL 25 MG TABLET 75 MG PO (21:32)
--- NOTE | 2024-05-24 21:34 | PD.IMPROG ---
Documentation for date of: 05/24/24 Subjective Subjective Interval history: Patient has a lot of anxiety and panic disorder Talk to the family the daughter and the granddaughter Her son 2 years ago was short on the visit to [place] and she has been like that since then according to her daughter Patient had a large bowel movement today Abdomen is not distended and has good positive bowel sounds active Hemoglobin hematocrit 9.0 and 29.1 with a WBC count of 14.3 and a platelet count 207,000 Exam Vital Signs Temp Pulse Resp BP Pulse Ox O2 Del Method O2 Flow Rate 97.8 F 94 36 H 151/72 H 95 High Flow Nasal Cannula 05/24/24 20:00 05/24/24 21:00 05/24/24 21:00 05/24/24 21:00 05/24/24 21:00 05/24/24 16:00 05/24/24 19:16 FiO2 55 05/24/24 19:16 Objective Labs 05/24/24 04:40 05/24/24 04:40 Labs: Laboratory Results - last 24 hr 05/17/24 05/24/24 05/24/24 05:24 00:56 04:40 WBC 14.3 H RBC 3.47 L Hgb 9.0 L Hct 29.1 L MCV 84 MCH 25.9 MCHC 30.9 L RDW Std Deviation 49.7 H Plt Count 107 L D Neut % (Auto) 79 Lymph % (Auto) 9 L [place] % (Auto) 9 Eos % (Auto) 1 Baso % (Auto) 0 Neut # (Auto) 11.3 H Lymph # (Auto) 1.2 [place] # (Auto) 1.3 H Eos # (Auto) 0.1 Baso # (Auto) 0.1 Immature Gran # (Auto) 0.25 H Absolute Nucleated RBC 0.00 Immature Gran % 2 H Nucleated RBC % 0 Sodium 145 Potassium 3.9 Chloride 107 Carbon Dioxide 28.2 Anion Gap 10 BUN 14 Creatinine 1.4 H Estim Creat Clear Calc 40.4 L eGFR 44 L BUN/Creatinine Ratio 10 L Glucose 59 L Calculated Osmolality 287 Lactic Acid 0.6 Calcium 8.2 L Corrected Calcium 9.6 Total Bilirubin 0.4 AST 73 H ALT 16 Alkaline Phosphatase 69 Total Protein 4.9 L Albumin 2.3 L Globulin 2.6 Albumin/Globulin Ratio 0.9 L Stool Calprotectin 111 Impressions Impression: Colonic pseudoobstruction resolved Ileus improved Abnormal CT scan of the abdomen pelvis Panic disorder Continue current management Hold off the colonoscopy ABG Interpretation ABG results: 05/23/24 05/23/24 12:35 16:24 ABG pH 7.17 L* 7.37 D ABG pCO2 71 H* 56 H D ABG pO2 68 L 104 D ABG HCO3 26 32 H ABG O2 Saturation 89 L 98 ABG Base Excess -3 6 H Assessment & Plan A&P Narrative # Pain abdomen with bloody diarrhea abnormal CT scan of the abdomen pelvis differential diagnosis include infectious colitis versus inflammatory bowel disease Plan stool for Gram stain stool culture and sensitivity stool C. difficile CRP ANCA antibody Fecal calprotectin If above negative we will consider fiberoptic colonoscopy with possible biopsies Agree with broad-spectrum antibiotics Thank you very much for the opportunity to participate in the care of this patient Time Spent With Patient Time: Total time spent is greater than 50% in coordination of care (as documented) at patient's floor/unit and/or counseling patient:
--- NOTE | 2024-05-24 22:35 | PD.NEUROPROG ---
Documentation for date of: 05/24/24 Subjective Subjective Interval history: Patient was seen in ICU today at the bedside. She did have another episode today sounded more like panic attack/generalized anxiety. No witnessed genuine convulsions suggestive of seizures. Exam - Neurology Vital Signs Temp Pulse Resp BP Pulse Ox O2 Del Method O2 Flow Rate 97.8 F 94 36 H 151/72 H 95 High Flow Nasal Cannula 25 05/24/24 20:00 05/24/24 21:00 05/24/24 21:00 05/24/24 21:00 05/24/24 21:00 05/24/24 16:00 05/24/24 19:16 FiO2 55 05/24/24 19:16 Narrative Exam GENERAL APPEARANCE: Well hydrated, well-nourished in no acute distress. HEENT: Normocephalic, atraumatic, extraocular movements intact. Pupils: Equal reacting to light and accommodation NECK: Supple, no JVD or bruits. CARDIOVASULAR: Heart: S1, S2 heard, regular without S3-S4 or murmur no rubs or gallops. LUNGS/CHEST: Clear to auscultation bilaterally. No rails, rhonchi, or wheezing. Normal inspection. ABDOMEN: Soft, nontender, with normal bowel sounds. No pulsatile masses. No rebound, rigidity, or guarding. Normal inspection and palpation. EXTREMITIES: Normal inspection and palpation. No edema, clubbing or cyanosis. SKIN: Warm and dry without rashes. Normal inspection. MUSCULOSKELETAL: No cervical, thoracic, lumbar or midline bony tenderness. Normal inspection. NEURO: Alert, awake and oriented x3. Cranial nerves: II through XII grossly intact. Speech and language: Normal with no dysarthria or dysphasia. Motor system: Tone and bulk: Normal: Strength: 5 out of 5 in all 4 extremities; No pronator drift noted. Deep tendon reflexes: 2+ bilaterally symmetrical. Plantar reflex: Downgoing bilaterally. Sensory system: Intact to all modalities of sensation bilaterally. Coordination: Intact to [id number] and [id number] test bilaterally. No ataxia, no dysmetria, or dysdiadochokinesia noted. No intention tremors noted. Gait: Not tested. No signs of meningeal irritation noted. PSYCHIATRIC: Normal mood and affect. Objective Labs 05/25/24 04:44 05/25/24 04:44 Labs: Laboratory Results - last 24 hr 05/17/24 05/24/24 05/24/24 05:24 00:56 04:40 WBC 14.3 H RBC 3.47 L Hgb 9.0 L Hct 29.1 L MCV 84 MCH 25.9 MCHC 30.9 L RDW Std Deviation 49.7 H Plt Count 107 L D Neut % (Auto) 79 Lymph % (Auto) 9 L [place] % (Auto) 9 Eos % (Auto) 1 Baso % (Auto) 0 Neut # (Auto) 11.3 H Lymph # (Auto) 1.2 [place] # (Auto) 1.3 H Eos # (Auto) 0.1 Baso # (Auto) 0.1 Immature Gran # (Auto) 0.25 H Absolute Nucleated RBC 0.00 Immature Gran % 2 H Nucleated RBC % 0 Sodium 145 Potassium 3.9 Chloride 107 Carbon Dioxide 28.2 Anion Gap 10 BUN 14 Creatinine 1.4 H Estim Creat Clear Calc 40.4 L eGFR 44 L BUN/Creatinine Ratio 10 L Glucose 59 L Calculated Osmolality 287 Lactic Acid 0.6 Calcium 8.2 L Corrected Calcium 9.6 Total Bilirubin 0.4 AST 73 H ALT 16 Alkaline Phosphatase 69 Total Protein 4.9 L Albumin 2.3 L Globulin 2.6 Albumin/Globulin Ratio 0.9 L Stool Calprotectin 111 ABG Interpretation ABG results: 05/23/24 05/23/24 12:35 16:24 ABG pH 7.17 L* 7.37 D ABG pCO2 71 H* 56 H D ABG pO2 68 L 104 D ABG HCO3 26 32 H ABG O2 Saturation 89 L 98 ABG Base Excess -3 6 H Assessment & Plan Assessment and plan (1) AMS (altered mental status): Status: Acute Assessment and plan: Intermittent episodes of panic attack likely from underlying anxiety. Follow-up with EEG to rule out seizures. Can DC the Keppra Continue with amitriptyline, Seroquel and fluoxetine (2) Hypoxia: Status: Acute Assessment and plan: On high flow oxygen (3) Pneumonia: Status: Acute Assessment and plan: Continue with antibiotics as per primary team (4) Colitis: Status: Acute Assessment and plan: On metronidazole
[2024-05-25] VITALS (33 sets, daily range): BP systolic 100–149; BP diastolic 46–85; PULSE 90–105; RESP 15–40; TEMP 36.3–37.2; O2SAT 84–100; BMI 30.5; BMI 26.3
[2024-05-25] MEDS: SODIUM CHLORIDE 0.9% 1000 ML 1,000 ML 80 ML IV ×2 (03:00→17:05)
[2024-05-25 05:12] LABS: Basophils % (Auto) 0 % (0-2.5); Eosinophils # (Auto) 0.2 Thou/mm3 (0.0-0.5); Eosinophils % (Auto) 2 % (0-10); Hematocrit 27.4 % (36.0-46.0); Immature Granulocytes % (Auto) 2 % (0-0); Immature Granulocytes Auto 0.27 Thou/mm3 (0.00-0.00); Lymphocytes # (Auto) 1.2 Thou/mm3 (1.0-4.8); Lymphocytes % (Auto) 8 % (10-50); Mean Corpuscular Volume 84 fL (80-100); Monocytes # (Auto) 1.2 Thou/mm3 (0.0-0.8); Monocytes % (Auto) 8 % (0-12); Neutrophils # (Auto) 11.2 Thou/mm3 (1.8-7.7); Neutrophils % (Auto) 80 % (37-80); Nucleated Red Blood Cell % 0 /100 WBC (0); Platelet Count 136 Thou/mm3 (140-440); RDW Standard Deviation 51.8 fL (36.4-46.3); Red Blood Count 3.27 Miln/mm3 (4.00-5.20); White Blood Count 14.1 Thou/mm3 (3.6-11.0)
[2024-05-25 05:16] LABS: Hemoglobin 8.5 g/dL (12.0-16.0)
[2024-05-25] MEDS: metroNIDAZOLE/NS 500 MG IVPB 500 MG/100 ML BAG 200 MG IV (05:38)
[2024-05-25 05:41] LABS: Alanine Aminotransferase 18 U/L (10-49); Albumin, Serum 2.4 gm/dL (3.5-5.0); Albumin/Globulin Ratio 0.9 (1.2-2.2); Alkaline Phosphatase 68 U/L (46-116); Anion Gap 11 (7-16); Aspartate Amino Transferase 49 U/L (0-34); BUN/Creatinine Ratio 14 Ratio (12-20); Bilirubin,Total 0.3 mg/dL (0.3-1.2); Blood Urea Nitrogen 22 mg/dL (9-23); Calcium (Corrected) 9.3 mg/dL (8.5-10.1); Carbon Dioxide 25.6 mMol/L (20.0-31.0); Chloride 109 mMol/L (98-107); Creatinine (Component) 1.6 mg/dL (0.6-1.3); Estimated Creatinine Clearance 35.4 mL/min (>60); Globulin 2.6 gm/dL (2.3-3.5); Glucose 55 mg/dL (74-106); Osmolality,Calculated 291 (275-295); Potassium 3.8 mMol/L (3.4-5.1); Sodium 146 mMol/L (136-145); eGFR 37 See Note
[2024-05-25 06:50] LABS: ANCA Screen NEGATIVE (NEGATIVE); Myeloperoxidase Ab <1.0 AI (<1.0); Proteinase-3 Ab <1.0 AI (<1.0)
[2024-05-25] MEDS: ALBUTEROL/IPRATROPIUM (Duoneb) RT SOL 3 ML NEBU INH (06:54)
[2024-05-25] MEDS: DEXTROSE 50%-WATER INJ 50 ML SYRINGE IV (08:31)
[2024-05-25] MEDS: PANTOPRAZOLE INJ 40 MG VIAL IVP (08:32)
[2024-05-25] MEDS: levETIRAcetam INJ 100 MG/ML VIAL 5ML 1000 MG IV (08:32)
[2024-05-25] MEDS: cefTRIAXone 1,000 MG in SODIUM CHLORIDE 0.9% (Popper) 50 ML 100 MG IV (08:34)
[2024-05-25] MEDS: METHADONE PO (08:58)
[2024-05-25] MEDS: NALOXEGOL OXALATE 25 MG TABLET (NON-FORMULARY) PO (08:58)
[2024-05-25] MEDS: POLYETHYLENE GLYCOL 17 GM PACKET PO (10:00)
--- NOTE | 2024-05-25 10:42 | XR_ITS ---
Examination: Nuclear medicine pulmonary perfusion ventilatory scan Exam date and time: May 25, 2024 1616 hours INDICATIONS: Diagnosis COPD on home O2, diagnosis pulmonary fibrosis, hypertension, severe pneumonia ARDS pattern on chest imaging this week TECHNIQUE AND FINDINGS: Ventilation scan 42.6 mCi technetium 99m DTPA aerosol Perfusion study 4.2 mCi technetium 99m macroaggregated albumin Matching anterior posterior right and left lateral bilateral oblique images Severe ventilatory defects bilaterally seen with heart failure, pneumonia No pulmonary perfusion mismatch IMPRESSION: Low probability pulmonary artery emboli
[2024-05-25 11:28] LABS: Magnesium 1.8 mg/dL (1.6-2.6)
--- NOTE | 2024-05-25 13:44 | PC.SS ---
Update: Patient remains on high flow oxygen, nasal cannula. Patient is not on pressor support. No skin issue present. Patient receiving IV fluids. Patient receiving methadone. Swallow evaluation is pending.
--- NOTE | 2024-05-25 14:43 | ESPR_ITS ---
Documentation for date of: 05/25/24 Subjective Subjective Interval history: Patient seen and examined at bedside. Overnight, was said to have been hypoxic and was placed on high flow oxygen, saturations picked back up. At bedside today, patient is more sleepy/lethargic, clammy/diaphoretic. Labs reviewed, blood glucose is 55 on morning labs and recheck at 53. 1 unit of D50 given. Urine tox is on improved Received a contact for [facility] and the lung cancer center for retrieval of the pulmonary function test, attempts are made to reach out but unsuccessful, still pending retrieval. Pending report of echocardiogram to evaluate for pulmonary HTN. Evaluated by neurology, recommends to DC Keppra for now as patient is unlikely to be having seizures but does have a panic disorder. Previously on amitriptyline and Seroquel. Will DC amitriptyline and start on fluoxetine 20 mg and reduce the dose of Seroquel, will also start on Remeron 15 mg at night. 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 Eyes open, symmetrical, & clear CARDIO: No chest pain on palpation. Heart RRR, no obvious murmurs PULM: Crackles heard bilaterally no auscultation GI: Abdomen soft, nondistended, no pain on palpation. BSx4 URO/DIESEL ELECTRICIAN:: No further abnormalities noted. Ricardo catheter in- situ SKIN/MSK/EXT: No wounds/rashes/edema/amputations, no pain on palpation. Pedal pulses present B/L Objective Labs 05/29/24 05:24 05/29/24 05:24 Labs: Laboratory Results - last 24 hr 05/17/24 05/25/24 05/25/24 22:25 04:44 10:35 WBC 14.1 H RBC 3.27 L Hgb 8.5 L Hct 27.4 L MCV 84 MCH 26.0 MCHC 31.0 RDW Std Deviation 51.8 H Plt Count 136 L D Neut % (Auto) 80 Lymph % (Auto) 8 L [place] % (Auto) 8 Eos % (Auto) 2 Baso % (Auto) 0 Neut # (Auto) 11.2 H Lymph # (Auto) 1.2 [place] # (Auto) 1.2 H Eos # (Auto) 0.2 Baso # (Auto) 0.0 Immature Gran # (Auto) 0.27 H Absolute Nucleated RBC 0.00 Immature Gran % 2 H Nucleated RBC % 0 Sodium 146 H Potassium 3.8 Chloride 109 H Carbon Dioxide 25.6 Anion Gap 11 BUN 22 Creatinine 1.6 H Estim Creat Clear Calc 35.4 L eGFR 37 L BUN/Creatinine Ratio 14 Glucose 55 L Calculated Osmolality 291 Calcium 8.0 L Corrected Calcium 9.3 Magnesium 1.8 Total Bilirubin 0.3 AST 49 H ALT 18 Alkaline Phosphatase 68 Total Protein 5.0 L Albumin 2.4 L Globulin 2.6 Albumin/Globulin Ratio 0.9 L ANCA Screen NEGATIVE c-ANCA Titer TNP Anti-Proteinase 3 <1.0 p-ANCA Titer TNP Atypical p-ANCA Titer TNP Anti-Myeloperoxidase <1.0 ABG Interpretation ABG results: 05/23/24 05/23/24 12:35 16:24 ABG pH 7.17 L* 7.37 D ABG pCO2 71 H* 56 H D ABG pO2 68 L 104 D ABG HCO3 26 32 H ABG O2 Saturation 89 L 98 ABG Base Excess -3 6 H Quality Measures Quality Measures VTE prophylaxis Assessment & Plan Assessment Current Active Medications: Generic Name Dose Route Start Last Admin Trade Name Freq PRN Reason Stop Dose Admin Acetaminophen 650 mg 05/21/24 14:55 05/23/24 19:32 Acetaminophen 325 Mg Tablet PO 06/16/24 19:57 650 mg Q6H PRN Administration Fever >100.4 or pain 1-3 Hydrocodone Bitart/Acetaminophen 1 tab 05/21/24 14:53 05/24/24 20:03 Hydrocodone/Apap 5/325 Tablet PO 05/26/24 14:52 1 tab Q6HR PRN Administration PAIN SCALE 4-10(Mod-Sev Methadone 109 Mg 0 ea 05/19/24 09:45 05/25/24 08:58 Solution PO 06/18/24 09:44 1 bottle QDAY BRIGIDO Administration Protocol Fluoxetine HCl 20 mg 05/25/24 21:00 Fluoxetine Hcl 10 Mg Capsule PO 06/24/24 20:59 HS BRIGIDO Ceftriaxone Sodium 1,000 mg/ 50 mls @ 100 mls/hr 05/23/24 14:21 05/25/24 08:34 Sodium Chloride IV 05/30/24 14:20 100 mls/hr QDAY BRIGIDO Administration Sodium Chloride 1,000 mls @ 80 mls/hr 05/24/24 13:39 05/25/24 03:00 Ns IV 06/23/24 13:38 80 mls/hr .[id number] BRIGIDO Administration Mirtazapine 15 mg 05/25/24 21:00 Mirtazapine 15 Mg Tablet PO 06/24/24 20:59 HS BRIGIDO Naloxegol 25 mg 05/23/24 09:00 05/25/24 08:58 Naloxegol Oxalate 25 Mg Tablet (Non-Formulary) PO 06/22/24 08:59 25 mg QDAY BRIGIDO Administration Naloxone HCl 0.04 mg 05/22/24 09:43 Naloxone Inj 1 Mg/Ml Syringe 2 Ml IV 06/21/24 09:42 Q3M PRN OPIATE REVERSAL Ondansetron HCl 4 mg 05/17/24 19:58 05/20/24 09:14 Ondansetron Inj 2 Mg/Ml Inj 2 Ml IV 06/16/24 19:57 4 mg Q6H PRN Administration NAUSEA OR VOMITING Protocol Polyethylene Glycol 17 gm 05/25/24 09:45 05/25/24 10:00 Polyethylene Glycol 17 Gm Packet PO 06/24/24 09:44 17 gm QDAY BRIGIDO Administration Quetiapine Fumarate 200 mg 05/25/24 21:00 Quetiapine Fumarate 100 Mg Tablet PO 06/24/24 20:59 HS BRIGIDO Plan 58-year-old female with PMHx of COPD (less likely on 3 L home oxygen, pulmonary fibrosis ,HTN, and depression who presented with worsening abdominal pain, diarrhea with bright red [place] bleed and admitted for workup and management of abdominal pain and diarrhea. 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 Evaluated by neurology, recommends to discontinue Keppra as symptoms are likely to be related to panic/anxiety disorder than seizures. Plan: -follow up EEG -DC Keppra -Neurology consulted appreciate reccs #Acute metabolic encephalopathy- resolved -she was lethargic and mildly altered in the rapid response , currently back to baseline . -Will continue to monitor RESP #Acute on chronic hypoxic respi failure - on high flow #Community-acquired pneumonia #Severe pulmonary fibrosis #COPD (less likely on 3.5 L home oxygen -She has a history of pulmonary fibrosis on home steroids -Chest x-ray showed extensive bilateral consolidation more in the middle lobes. -CT scan showed severe pulmonary fibrosis -She reports taking prednisone at home prn if she has excerbation . And as per family primary is trying to keep her in lung transplant list -PSI/PORT : 48 points ; Risk class II -DODIE score 3 points , (13 %, 28 day mortality ) -Covid negative -RSV negative -Influenza negative -Blood cultures negative -Continue DuoNebs every 8 hrly -Discontinued ciprofloxacin and started her on ceftriaxone 05/25/2024: Still pending results of PFT. Attempts made to reach out to lung care center, unsuccessful. Will continue to attempt to retrieve results, patient saturations still intermittently dropping and is alternating between nasal cannula and high flow. CVS -As per daughter she has some valve issues and trying to follow Dr allyson Hathaway , our record has echo from 2018 with EF of 55/60 % [place] echo read to evaluate pulmonary HTN #Primary hypertension -BP today- 155/77 -From home medication reconciliation, patient appears to be no longer taking clonidine. -continue to monitor blood pressure while in hospital. -May consider starting antihypertensives based on blood pressure trend 05/25/2024: Blood pressure soft, no need for antihypertensives at this time. GI #Diffuse colitis, possible GI infection #GI bleed #Ileus ruled out #Leukocytosis #H pylori -Patient presented with 1 week of progressively worsening abdominal pain and watery diarrhea with occasional bright red blood. -On exam on admission patient has diffuse generalized tenderness to palpation of the abdomen with rebound tenderness but no guarding. DDx: Medication side effect, IBS, IBD -CT abdomen pelvis showed Liver mildly irregular in contour. Severe diffuse hyperemia and inflammatory change involving the entire colon. -Liver ultrasound significant for fatty liver with trace free fluid. -On admission WBC 17.2??>12.5 -Blood culture negative x 48 hours preliminary -Hemoglobin stable at 12.7 on admission and hemoglobin is 9.4 today -C. difficile PCR negative -Stool for WBCs negative -Hepatitis panel negative -Stool culture negative -ANCA studies pending -Stool calprotectin, Giardia and norovirus pending -Avoiding NSAIDs -Pro bri 0.91 -GI, Dr. Corley consulted and closely following the case. Appreciate recommendations. 05/21: Patient had worsening abdominal distention. AXR was ordered which showed severely dilated bowel loops.GoLytely put on hold. Fleet enema x 1 orderedGI, Dr. Corley consulted. Rectal tube was placed. -05/22/2024?will start patient on Movantik 25 mg p.o. daily as patient takes methadone and is likely having ileus due to opioid use. Will also restart GoLytely as tolerated and attempt to clear the patient for colonoscopy -05/23/2024- Discontinue ciprofloxacin and started the patient on ceftriaxone, will continue metronidazole . simethicone and GoLytely discontinued .Dr corley on board -05/24/24: continue ceftriaxone and metronidazole ,NPO, still not passing gas . Dr corley on board , pending colonoscopy -05/25/2024: Discontinued antibiotics. Patient had large bowel movement yesterday, currently has no abdominal symptoms. Speech evaluated, recommends dysphagia diet. Pending additional recommendations from GI. RENAL #Lactic acidosis -resolved -type A (hypoxia) vs type B (seizure ) -will trend lactate -Continue to monitor #respiratory acidosis -resolving -likely sec to underlying copd and pulmonary fibrosis -currently on high flow -we will follow repeat ABG #Mild REBA -currently 1.4 , most likely pre renal , -will continue to monitor 05/25/2024: Creatinine increased to 1.6 today. Patient was originally on IV fluids which fell off, will continue IV fluids NS patient has been cleared by speech but will encourage oral intake as tolerated. INFECTIOUS -As above GI ENDO #Hypoglycemia Possibly due to decreased oral intake and patient being NPO. ? This morning in the 50s, received D50. Plan: -Diet, advance as tolerated -Blood glucose check AC PSYCHIATRY #Depression -Home medication fluoxetine 40mg po BID and Quetiapine 400 mg po Qday. - Fluoxetine on hold due to concern of diarrhea - Continue quetiapine 400 Mg at bedtime 05/25/2024: Discontinued amitriptyline and started fluoxetine 40 mg daily, reduce dose of Seroquel to 200 mg and started on Remeron 15 mg. #Opioid dependence, on methadone therapy. -continue home methadone. Contacting methadone clinic HEMATOLOGY Normocytic anemia -today Hb is 9.0 , -will do iron studies -will continue to monitor , transfuse if Hb is <7 05/25/2024: Hemoglobin dropped to 8.5 today we will continue to monitor. Health maintenance: Disposition: ICU for acute hypoxic respi failure for close monitoring Diet: Dysphagia-pur?e diet Lines: pIVs GI Prophylaxis: None Thrombo Prophylaxis: SCDs Code status: FULL CODE Case was discussed with attending physician, Dr Sally Gillespie MD PGY-1 Disclaimer: This note was dictated by speech recognition. Minor errors in supervisor travel trailer may be present due to voice recognition software. Attending Provider Attestation/Addendum Patient seen and examined with the above resident, Jero Gillespie MD. I agree with the findings, assessment, and plan of care as documented except for any differences below. Patient with continued hypoxia, transitioned to [facility] for comfort and additional reserve. Aim to mobilize. Ongoing empiric antibiotics for GI and possible pulmonary source. Initially adjustments in regimen to minimize risk of antibiotic related seizure activity, now stopped as adequate completion of course with improved symptoms. Appreciate neurology input for adjustments with discontinuation Keppra. Son able to relay history of desaturation induced by anxiety and confusion state. Consistent with in-hospital events. Patient on extensive regimen that will limit her ability to be considered for lung transplant. We will adjust fluids to balance renal function and respiratory status. Insensible losses from GI output improved. Awaiting additional information on pulmonary function from OSH and methadone clinic for dosing. We will start to optimize her for prison management of her pulmonary fibrosis. Encephalopathy did resolve, episode of hypoglycemia. Promote PO intake as high basal metabolic rate due to increased work of breathing from lung disease. Continue to monitor closely, will be long course to wean O2 gradually. Patient and son counseled at bedside. Total critical care time: I personally spent 40 minutes for review of physiologic parameters, directing plan of care, coordination of care with other specialists, and counseling patient and her son at bedside. 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 She continues to require critical care services for acute on chronic hypoxic respiratory failure, acute renal failure, acute encephalopathy. She remains at significant risk for further morbidity and mortality warranting close monitoring/ care only available in the ICU.
--- NOTE | 2024-05-25 14:49 | PCS.ST ---
Swallow eval completed. PO diet started (puree and thin liquids). ST discussed findings and recommendations with RN and radiologic technology program director: pt not allow to have liquid in the room because she needs a feeder to control the rate of intake (to be sip by sip, not continuous sips) otherwise it was observed her RR goes up immediately.
--- NOTE | 2024-05-25 16:07 | PC.DIETICIAN ---
Nutrition Prescription: 1. When indicated: Consider starting Clear Liquids if GI symptoms have not fully resolved and advance as tolerated. 2. If EN is initiated, consider: Jevity 1.2 at 20 ml/hr via NG tube by pump. Advance 10 ml every 8 hrs to goal rate of 55 ml/hr x 24 hrs. If no IV fluids, water flushes of 25 ml/hr (or per MD).
[2024-05-25] MEDS: HYDROmorphone INJ 2 MG/ML VIAL 0.5 MG IVP (16:10)
[2024-05-25] MEDS: FLUoxetine HCL 10 MG CAPSULE 40 MG PO (20:41)
[2024-05-25] MEDS: QUEtiapine FUMARATE 100 MG TABLET 200 MG PO (20:42)
[2024-05-25] MEDS: HYDROcodone/APAP 5/325 TABLET 1 TAB PO (20:42)
[2024-05-25] MEDS: MIRTAZAPINE 15 MG TABLET PO (20:42)
--- NOTE | 2024-05-25 21:17 | ESPR_ITS ---
Documentation for date of: 05/25/24 Subjective Subjective Interval history: Patient evaluated No plans for invasive GI workup On high flow oxygen Exam Vital Signs Temp Pulse Resp BP Pulse Ox O2 Del Method O2 Flow Rate 97.8 F 95 28 H 128/57 L 100 High Flow Nasal Cannula 40 05/25/24 16:59 05/25/24 19:09 05/25/24 19:09 05/25/24 19:00 05/25/24 19:09 05/25/24 18:01 05/25/24 19:09 FiO2 100 05/25/24 19:09 Objective Labs 05/25/24 04:44 05/25/24 04:44 Labs: Laboratory Results - last 24 hr 05/17/24 05/25/24 05/25/24 22:25 04:44 10:35 WBC 14.1 H RBC 3.27 L Hgb 8.5 L Hct 27.4 L MCV 84 MCH 26.0 MCHC 31.0 RDW Std Deviation 51.8 H Plt Count 136 L D Neut % (Auto) 80 Lymph % (Auto) 8 L [place] % (Auto) 8 Eos % (Auto) 2 Baso % (Auto) 0 Neut # (Auto) 11.2 H Lymph # (Auto) 1.2 [place] # (Auto) 1.2 H Eos # (Auto) 0.2 Baso # (Auto) 0.0 Immature Gran # (Auto) 0.27 H Absolute Nucleated RBC 0.00 Immature Gran % 2 H Nucleated RBC % 0 Sodium 146 H Potassium 3.8 Chloride 109 H Carbon Dioxide 25.6 Anion Gap 11 BUN 22 Creatinine 1.6 H Estim Creat Clear Calc 35.4 L eGFR 37 L BUN/Creatinine Ratio 14 Glucose 55 L Calculated Osmolality 291 Calcium 8.0 L Corrected Calcium 9.3 Magnesium 1.8 Total Bilirubin 0.3 AST 49 H ALT 18 Alkaline Phosphatase 68 Total Protein 5.0 L Albumin 2.4 L Globulin 2.6 Albumin/Globulin Ratio 0.9 L ANCA Screen NEGATIVE c-ANCA Titer TNP Anti-Proteinase 3 <1.0 p-ANCA Titer TNP Atypical p-ANCA Titer TNP Anti-Myeloperoxidase <1.0 Impressions Impression: Colonic pseudoobstruction resolved Abdominal distention improved No plans for any invasive GI workup Continue supportive care ABG Interpretation ABG results: 05/23/24 05/23/24 12:35 16:24 ABG pH 7.17 L* 7.37 D ABG pCO2 71 H* 56 H D ABG pO2 68 L 104 D ABG HCO3 26 32 H ABG O2 Saturation 89 L 98 ABG Base Excess -3 6 H Assessment & Plan A&P Narrative # Pain abdomen with bloody diarrhea abnormal CT scan of the abdomen pelvis differential diagnosis include infectious colitis versus inflammatory bowel disease Plan stool for Gram stain stool culture and sensitivity stool C. difficile CRP ANCA antibody Fecal calprotectin If above negative we will consider fiberoptic colonoscopy with possible biopsies Agree with broad-spectrum antibiotics Thank you very much for the opportunity to participate in the care of this patient Time Spent With Patient Time: Total time spent is greater than 50% in coordination of care (as documented) at patient's floor/unit and/or counseling patient:
--- NOTE | 2024-05-25 23:10 | ESPR_ITS ---
Documentation for date of: 05/25/24 Subjective Subjective Interval history: Patient was seen in ICU today at the bedside. No more episodes reported since yesterday. Exam - Neurology Vital Signs Temp Pulse Resp BP Pulse Ox O2 Del Method O2 Flow Rate 98.9 F 98 24 H 136/68 H 94 L High Flow Nasal Cannula 40 05/25/24 20:00 05/25/24 23:00 05/25/24 23:00 05/25/24 23:00 05/25/24 23:00 05/25/24 18:01 05/25/24 19:09 FiO2 100 05/25/24 19:09 Narrative Exam GENERAL APPEARANCE: Well hydrated, well-nourished in no acute distress. HEENT: Normocephalic, atraumatic, extraocular movements intact. Pupils: Equal reacting to light and accommodation NECK: Supple, no JVD or bruits. CARDIOVASULAR: Heart: S1, S2 heard, regular without S3-S4 or murmur no rubs or gallops. LUNGS/CHEST: Clear to auscultation bilaterally. No rails, rhonchi, or wheezing. Normal inspection. ABDOMEN: Soft, nontender, with normal bowel sounds. No pulsatile masses. No rebound, rigidity, or guarding. Normal inspection and palpation. EXTREMITIES: Normal inspection and palpation. No edema, clubbing or cyanosis. SKIN: Warm and dry without rashes. Normal inspection. MUSCULOSKELETAL: No cervical, thoracic, lumbar or midline bony tenderness. Normal inspection. NEURO: Alert, awake and oriented x3. Cranial nerves: II through XII grossly intact. Speech and language: Normal with no dysarthria or dysphasia. Motor system: Tone and bulk: Normal: Strength: 5 out of 5 in all 4 extremities; No pronator drift noted. Deep tendon reflexes: 2+ bilaterally symmetrical. Plantar reflex: Downgoing bilaterally. Sensory system: Intact to all modalities of sensation bilaterally. Coordination: Intact to [id number] and smia-dlfh-[id number] test bilaterally. No ataxia, no dysmetria, or dysdiadochokinesia noted. No intention tremors noted. Gait: Not tested. No signs of meningeal irritation noted. PSYCHIATRIC: Normal mood and affect. Objective Labs 05/26/24 04:23 05/26/24 04:23 Labs: Laboratory Results - last 24 hr 05/17/24 05/25/24 05/25/24 22:25 04:44 10:35 WBC 14.1 H RBC 3.27 L Hgb 8.5 L Hct 27.4 L MCV 84 MCH 26.0 MCHC 31.0 RDW Std Deviation 51.8 H Plt Count 136 L D Neut % (Auto) 80 Lymph % (Auto) 8 L [place] % (Auto) 8 Eos % (Auto) 2 Baso % (Auto) 0 Neut # (Auto) 11.2 H Lymph # (Auto) 1.2 [place] # (Auto) 1.2 H Eos # (Auto) 0.2 Baso # (Auto) 0.0 Immature Gran # (Auto) 0.27 H Absolute Nucleated RBC 0.00 Immature Gran % 2 H Nucleated RBC % 0 Sodium 146 H Potassium 3.8 Chloride 109 H Carbon Dioxide 25.6 Anion Gap 11 BUN 22 Creatinine 1.6 H Estim Creat Clear Calc 35.4 L eGFR 37 L BUN/Creatinine Ratio 14 Glucose 55 L Calculated Osmolality 291 Calcium 8.0 L Corrected Calcium 9.3 Magnesium 1.8 Total Bilirubin 0.3 AST 49 H ALT 18 Alkaline Phosphatase 68 Total Protein 5.0 L Albumin 2.4 L Globulin 2.6 Albumin/Globulin Ratio 0.9 L ANCA Screen NEGATIVE c-ANCA Titer TNP Anti-Proteinase 3 <1.0 p-ANCA Titer TNP Atypical p-ANCA Titer TNP Anti-Myeloperoxidase <1.0 ABG Interpretation ABG results: 05/23/24 05/23/24 12:35 16:24 ABG pH 7.17 L* 7.37 D ABG pCO2 71 H* 56 H D ABG pO2 68 L 104 D ABG HCO3 26 32 H ABG O2 Saturation 89 L 98 ABG Base Excess -3 6 H Assessment & Plan Assessment and plan (1) AMS (altered mental status): Status: Acute Assessment and plan: Intermittent episodes of panic attack likely from underlying anxiety. EEG did not show any epileptiform discharges Keppra has been discontinued, no recurrent episodes reported Continue with amitriptyline, Seroquel and fluoxetine for anxiety and depression (2) Hypoxia: Status: Acute Assessment and plan: On high flow oxygen (3) Pneumonia: Status: Acute Assessment and plan: Continue with antibiotics as per primary team (4) Colitis: Status: Acute Assessment and plan: On metronidazole
[2024-05-25] MEDS: ACETAMINOPHEN 325 MG TABLET 650 MG PO (23:44)
[2024-05-26] VITALS (42 sets, daily range): BP systolic 88–140; BP diastolic 59–86; PULSE 85–109; RESP 13–45; TEMP 36.2–37.6; O2SAT 70–100
[2024-05-26] MEDS: HYDROcodone/APAP 5/325 TABLET 1 TAB PO (04:17)
[2024-05-26 05:15] LABS: Basophils % (Auto) 0 % (0-2.5); Eosinophils # (Auto) 0.3 Thou/mm3 (0.0-0.5); Eosinophils % (Auto) 2 % (0-10); Hematocrit 26.7 % (36.0-46.0); Immature Granulocytes % (Auto) 2 % (0-0); Immature Granulocytes Auto 0.24 Thou/mm3 (0.00-0.00); Lymphocytes # (Auto) 1.2 Thou/mm3 (1.0-4.8); Lymphocytes % (Auto) 9 % (10-50); Mean Corpuscular HGB Conc 30.7 g/dl (31.0-37.0); Mean Corpuscular Hemoglobin 26.2 pg (25.0-35.0); Mean Corpuscular Volume 85 fL (80-100); Monocytes # (Auto) 1.3 Thou/mm3 (0.0-0.8); Monocytes % (Auto) 10 % (0-12); Neutrophils # (Auto) 9.9 Thou/mm3 (1.8-7.7); Neutrophils % (Auto) 77 % (37-80); Nucleated Red Blood Cell % 0 /100 WBC (0); Platelet Count 140 Thou/mm3 (140-440); RDW Standard Deviation 54.2 fL (36.4-46.3); Red Blood Count 3.13 Miln/mm3 (4.00-5.20); White Blood Count 12.9 Thou/mm3 (3.6-11.0)
[2024-05-26 05:21] LABS: Hemoglobin 8.2 g/dL (12.0-16.0)
[2024-05-26 05:41] LABS: Alanine Aminotransferase 14 U/L (10-49); Albumin, Serum 2.4 gm/dL (3.5-5.0); Albumin/Globulin Ratio 0.9 (1.2-2.2); Alkaline Phosphatase 73 U/L (46-116); Anion Gap 7 (7-16); Aspartate Amino Transferase 26 U/L (0-34); BUN/Creatinine Ratio 13 Ratio (12-20); Bilirubin,Total 0.2 mg/dL (0.3-1.2); Blood Urea Nitrogen 24 mg/dL (9-23); Calcium 8.1 mg/dL (8.3-10.6); Calcium (Corrected) 9.4 mg/dL (8.5-10.1); Carbon Dioxide 27.9 mMol/L (20.0-31.0); Chloride 111 mMol/L (98-107); Creatinine (Component) 1.8 mg/dL (0.6-1.3); Globulin 2.8 gm/dL (2.3-3.5); Glucose 82 mg/dL (74-106); Osmolality,Calculated 293 (275-295); Potassium 3.8 mMol/L (3.4-5.1); Sodium 146 mMol/L (136-145); Total Protein 5.2 gm/dL (5.7-8.2); eGFR 32 See Note
[2024-05-26] MEDS: SODIUM CHLORIDE 0.9% 1000 ML 1,000 ML 80 ML IV (06:18)
[2024-05-26 08:09] LABS: Magnesium 1.8 mg/dL (1.6-2.6); Phosphorous 3.6 mg/dL (2.4-5.1)
[2024-05-26 09:09] LABS: Base Excess 2 (-3-3); HCO3 29 mEq/L (20-26); Inspired Oxygen, FIO2 70 %; O2 Saturation 94 % (91-98); PCO2 61 mmHg (32.0-48.0); PO2 71 mmHg (83-108); pH, Arterial 7.29 (7.35-7.45)
[2024-05-26 09:10] LABS: Allen Test Not Performed; Puncture Site Right Radial
[2024-05-26] MEDS: DEXTROSE 10%-WATER 1000 ML 250 ML 999 ML IV (11:00)
--- NOTE | 2024-05-26 13:08 | ESPR_ITS ---
Documentation for date of: 05/26/24 Subjective Subjective Interval history: Patient was examined bedside this morning, she was very lethargic oriented to her name only. Will discontinue her Seroquel, mitrazapine dosed decreased to 7.5. later in the day she was more awake and interactive . she is still requiring high flow. Got records for her pulmonary function test FVC percent predicted pre is 37, PFT shows complex restriction, unable to access diffusing capacity due to suboptimal test. started her on 75 % of her methadone . (80 mg ) today. will call her methadone clinic tomorrow ([facility], [place] -[phone]) . she is still on high flow , will try mor physical therapy, make he sit bedside . Pending Echo . Foleys catheter discontinued yesterday. 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 Eyes open, symmetrical, & clear CARDIO: No chest pain on palpation. Heart RRR, no obvious murmurs PULM: Crackles heard bilaterally no auscultation GI: Abdomen soft, nondistended, no pain on palpation. 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 SKIN/MSK/EXT: No wounds/rashes/edema/amputations, no pain on palpation. Pedal pulses present B/L Objective Labs 05/29/24 05:24 05/29/24 05:24 Labs: Laboratory Results - last 24 hr 05/26/24 05/26/24 04:23 09:00 WBC 12.9 H RBC 3.13 L Hgb 8.2 L Hct 26.7 L MCV 85 MCH 26.2 MCHC 30.7 L RDW Std Deviation 54.2 H Plt Count 140 Neut % (Auto) 77 Lymph % (Auto) 9 L [place] % (Auto) 10 Eos % (Auto) 2 Baso % (Auto) 0 Neut # (Auto) 9.9 H Lymph # (Auto) 1.2 [place] # (Auto) 1.3 H Eos # (Auto) 0.3 Baso # (Auto) 0.0 Immature Gran # (Auto) 0.24 H Absolute Nucleated RBC 0.00 Immature Gran % 2 H Nucleated RBC % 0 Puncture Site Right Radial ABG pH 7.29 L ABG pCO2 61 H ABG pO2 71 L D ABG HCO3 29 H ABG O2 Saturation 94 ABG Base Excess 2 FiO2 70 Sodium 146 H Potassium 3.8 Chloride 111 H Carbon Dioxide 27.9 Anion Gap 7 BUN 24 H Creatinine 1.8 H Estim Creat Clear Calc 29.0 L eGFR 32 L BUN/Creatinine Ratio 13 Glucose 82 Calculated Osmolality 293 Calcium 8.1 L Corrected Calcium 9.4 Phosphorus 3.6 Magnesium 1.8 Total Bilirubin 0.2 L AST 26 ALT 14 Alkaline Phosphatase 73 Total Protein 5.2 L Albumin 2.4 L Globulin 2.8 Albumin/Globulin Ratio 0.9 L ABG Interpretation ABG results: 05/23/24 05/23/24 05/26/24 12:35 16:24 09:00 ABG pH 7.17 L* 7.37 D 7.29 L ABG pCO2 71 H* 56 H D 61 H ABG pO2 68 L 104 D 71 L D ABG HCO3 26 32 H 29 H ABG O2 Saturation 89 L 98 94 ABG Base Excess -3 6 H 2 Quality Measures Quality Measures VTE prophylaxis Assessment & Plan Assessment Current Active Medications: Generic Name Dose Route Start Last Admin Trade Name Freq PRN Reason Stop Dose Admin Acetaminophen 650 mg 05/21/24 14:55 05/25/24 23:44 Acetaminophen 325 Mg Tablet PO 06/16/24 19:57 650 mg Q6H PRN Administration Fever >100.4 or pain 1-3 Hydrocodone Bitart/Acetaminophen 1 tab 05/21/24 14:53 05/26/24 04:17 Hydrocodone/Apap 5/325 Tablet PO 05/26/24 14:52 1 tab Q6HR PRN Administration PAIN SCALE 4-10(Mod-Sev Methadone 109 Mg 0 ea 05/19/24 09:45 05/26/24 12:34 Solution PO 06/18/24 09:44 Not Given QDAY BRIGIDO Protocol Fluoxetine HCl 40 mg 05/25/24 21:00 05/25/24 20:41 Fluoxetine Hcl 10 Mg Capsule PO 06/24/24 20:59 40 mg HS BRIGIDO Administration Sodium Chloride 1,000 mls @ 80 mls/hr 05/24/24 13:39 05/26/24 06:18 Ns IV 06/23/24 13:38 80 mls/hr .[id number] BRIGIDO Administration Mirtazapine 7.5 mg 05/26/24 21:00 Mirtazapine 15 Mg Tablet PO 06/25/24 20:59 HS BRIGIDO Naloxegol 25 mg 05/23/24 09:00 05/26/24 09:50 Naloxegol Oxalate 25 Mg Tablet (Non-Formulary) PO 06/22/24 08:59 Not Given QDAY BRIGIDO Naloxone HCl 0.04 mg 05/22/24 09:43 Naloxone Inj 1 Mg/Ml Syringe 2 Ml IV 06/21/24 09:42 Q3M PRN OPIATE REVERSAL Ondansetron HCl 4 mg 05/17/24 19:58 05/20/24 09:14 Ondansetron Inj 2 Mg/Ml Inj 2 Ml IV 06/16/24 19:57 4 mg Q6H PRN Administration NAUSEA OR VOMITING Protocol Polyethylene Glycol 17 gm 05/25/24 09:45 05/26/24 09:49 Polyethylene Glycol 17 Gm Packet PO 06/24/24 09:44 Not Given QDAY BRIGIDO Plan 58-year-old female with PMHx of COPD (less likely on 3 L home oxygen, pulmonary fibrosis ,HTN, and depression who presented with worsening abdominal pain, diarrhea with bright red [place] bleed and admitted for workup and management of abdominal pain and diarrhea. 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 Evaluated by neurology, recommends to discontinue Keppra as symptoms are likely to be related to panic/anxiety disorder than seizures. 05/26/24- Intermittent episodes of panic attack likely from underlying anxiety.EEG did not show any epileptiform discharges,Keppra has been discontinued, no recurrent episodes reported.Will discontinue her Seroquel, mitrazapine dosed decreased to 7.5. . continue fluoxitine #Acute metabolic encephalopathy- resolved -she was lethargic and mildly altered in the rapid response , currently back to baseline . -Will continue to monitor RESP #Acute on chronic hypoxic respi failure - on high flow #Community-acquired pneumonia #Severe pulmonary fibrosis #COPD ruled out -She has a history of pulmonary fibrosis on home steroids -Chest x-ray showed extensive bilateral consolidation more in the middle lobes. -CT scan showed severe pulmonary fibrosis -She reports taking prednisone at home prn if she has excerbation . And as per family primary is trying to keep her in lung transplant list -PSI/PORT : 48 points ; Risk class II -DODIE score 3 points , (13 %, 28 day mortality ) -Covid negative -RSV negative -Influenza negative -Blood cultures negative -Continue DuoNebs every 8 hrly -Discontinued ciprofloxacin and started her on ceftriaxone 05/25/2024: Still pending results of PFT. Attempts made to reach out to lung care center, unsuccessful. Will continue to attempt to retrieve results, patient saturations still intermittently dropping and is alternating between nasal cannula and high flow. 05/26/24- Got records for her pulmonary function test FVC percent predicted pre is 37, PFT shows complex restriction, unable to access diffusing capacity due to suboptimal test. [facility] -As per daughter she has some valve issues and trying to follow Dr allyson Hathaway , our record has echo from 2018 with EF of 55/60 % [place] echo read to evaluate pulmonary HTN #Primary hypertension -BP today- 155/77 -From home medication reconciliation, patient appears to be no longer taking clonidine. -continue to monitor blood pressure while in hospital. -May consider starting antihypertensives based on blood pressure trend 05/26/2024: Blood pressure soft, no need for antihypertensives at this time. GI #Diffuse colitis, possible GI infection #GI bleed #Ileus ruled out #Leukocytosis #H pylori -Patient presented with 1 week of progressively worsening abdominal pain and watery diarrhea with occasional bright red blood. -On exam on admission patient has diffuse generalized tenderness to palpation of the abdomen with rebound tenderness but no guarding. DDx: Medication side effect, IBS, IBD -CT abdomen pelvis showed Liver mildly irregular in contour. Severe diffuse hyperemia and inflammatory change involving the entire colon. -Liver ultrasound significant for fatty liver with trace free fluid. -On admission WBC 17.2??>12.5 -Blood culture negative x 48 hours preliminary -Hemoglobin stable at 12.7 on admission and hemoglobin is 9.4 today -C. difficile PCR negative -Stool for WBCs negative -Hepatitis panel negative -Stool culture negative -ANCA studies pending -Stool calprotectin, Giardia and norovirus pending -Avoiding NSAIDs -Pro bri 0.91 -GI, Dr. Corley consulted and closely following the case. Appreciate recommendations. 05/21: Patient had worsening abdominal distention. AXR was ordered which showed severely dilated bowel loops.GoLytely put on hold. Fleet enema x 1 orderedGI, Dr. Corley consulted. Rectal tube was placed. -05/22/2024?will start patient on Movantik 25 mg p.o. daily as patient takes methadone and is likely having ileus due to opioid use. Will also restart GoLytely as tolerated and attempt to clear the patient for colonoscopy -05/23/2024- Discontinue ciprofloxacin and started the patient on ceftriaxone, will continue metronidazole . simethicone and GoLytely discontinued .Dr corley on board -05/24/24: continue ceftriaxone and metronidazole ,NPO, still not passing gas . Dr corley on board , pending colonoscopy -05/25/2024: Discontinued antibiotics. Patient had large bowel movement yesterday, currently has no abdominal symptoms. Speech evaluated, recommends dysphagia diet. Pending additional recommendations from GI. -05/26/24: will add bowel regimen,GI on board RENAL #Lactic acidosis -resolved -type A (hypoxia) vs type B (seizure ) -will trend lactate -Continue to monitor #respiratory acidosis -resolving -likely sec to underlying copd and pulmonary fibrosis -currently on high flow -we will follow repeat ABG #Mild REBA -currently 1.8 , most likely pre renal , -will continue to monitor 05/25/2024: Creatinine increased to 1.6 today. Patient was originally on IV fluids which fell off, will continue IV fluids NS patient has been cleared by speech but will encourage oral intake as tolerated. 05/26/24: cr today is 1.8 . will incourage oral intake INFECTIOUS -As above GI ENDO #Hypoglycemia Possibly due to decreased oral intake and patient being NPO. will encourage oral intake PSYCHIATRY #Depression -Home medication fluoxetine 40mg po BID and Quetiapine 400 mg po Qday. - Fluoxetine on hold due to concern of diarrhea - Continue quetiapine 400 Mg at bedtime 05/25/2024: Discontinued amitriptyline and started fluoxetine 40 mg daily, reduce dose of Seroquel to 200 mg and started on Remeron 15 mg. 05/26/24: Will discontinue her Seroquel, mitrazapine dosed decreased to 7.5., continue fluoxitine #Opioid dependence, on methadone therapy. - started her on 75 % of her methadone . (80 mg ) today. will call her methadone clinic tomorrow ([facility], [place] -[phone]) . HEMATOLOGY Normocytic anemia -today Hb is 8.2 , -will do iron studies -will continue to monitor , transfuse if Hb is <7 05/25/2024: Hemoglobin dropped to 8.5 today we will continue to monitor. Health maintenance: Disposition: ICU for acute hypoxic respi failure for close monitoring on high flow Diet: Dysphagia-pur?e diet Lines: pIVs GI Prophylaxis: None Thrombo Prophylaxis: SCDs Code status: FULL CODE Case was discussed with attending physician, Dr Sally Alonzo MD,PGY-3 Attending Provider Attestation/Addendum Patient seen and examined with the above resident, Darby Alonzo MD. I agree with the findings, assessment, and plan of care as documented except for any differences below. Outside pulmonary function testing confirmed severe restriction consistent with fibrotic changes on imaging thus far. Patient with continued requirement for HHHFNC. She has significant anxiety and pain control issues which will preclude her ability to do well in long chain quiller tender. She is not on an antifibrotic at this time. We will optimize for infection and fluid status in interim. PE low probability by VQ. Lethargy this AM due to multiple adjustments in medications. Mentation did improve towards middle of the day with holding seroquel for now. We did discuss with family potential exposure history and seems most like this is progression of fibrotic phase or acute exacerbation of underlying chronic hypersensitivity. She will need outpatient pulmonology and ultimately needs to be refereed for lung transplant but her medication/ anxiety preclude her candidacy. Too ill and functionally limited at this time for transfer for inpatient evaluation. Family did bring up role of steroids, I did make it clear that this is risky and may have no benefit. Will repeat CT chest today and check procalcitonin to determine if pulse dosing could be attempted. Total critical care time: I personally spent 45 minutes for review of physiologic parameters, directing plan of care, and counseling patient's family at the bedside. 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 Patient continues to require critical care services for acute on chronic hypoxic respiratory failure. She remains at significant risk of further morbidity and mortality warranting close monitoring and care only available in the ICU.
--- NOTE | 2024-05-26 14:30 | PC.SS ---
Update: Patient on high flow nasal cannula. P.O. feeding. No haq catheter in place, patient utilizing briefs. Patient not receiving pressor support. Afrebile.
--- NOTE | 2024-05-26 18:39 | XR_ITS ---
Examination: CT chest, without intravenous contrast. Sagittal and coronal 2-D reconstructions. Exam date and time: June 05, 2024 at 2030 hrs. Comparison January 25, 2024 Indications: Worsening shortness of breath this week CTDI:vol (mGy) 11.5 DLP: (mGycm) 334 Technique: Multiple 3.0 mm axial sections of the chest to been obtained. Bone and lung density settings are obtained. Sagittal and coronal 2-D reconstructions have been obtained. Low dose protocols were performed. One or more of the following dose reduction techniques were used; automated exposure control, adjustment of the mA and/or KV according to patient size, use of iterative reconstruction technique. Findings: Thoracic aortic calcification no aneurysmal dilatation Trace pericardial thickening No particular tracheobronchial or bronchopulmonary adenopathy Severe bilateral pulmonary fibrosis with likely superimposed pneumonia and pulmonary edema Small bilateral pleural effusions No visualized liver or splenic lesion No gallstones No pancreatic mass Severe scarring right kidney Impression: Severe bilateral pulmonary fibrosis Significant superimposed pneumonia possibly pulmonary edema
--- NOTE | 2024-05-26 20:59 | PD.IMPROG ---
Documentation for date of: 05/26/24 Subjective Subjective Interval history: Patient evaluated WBC count 12.9 hemoglobin hematocrit 8.2 and 26.7 with a platelet count of 140,000 patient more lethargic going to get a CT chest today Exam Vital Signs Temp Pulse Resp BP Pulse Ox O2 Del Method O2 Flow Rate 97.2 F 95 22 H 121/74 96 High Flow Nasal Cannula 40 05/26/24 12:00 05/26/24 18:00 05/26/24 18:00 05/26/24 18:00 05/26/24 18:00 05/26/24 18:00 05/26/24 18:00 FiO2 100 05/26/24 18:00 Objective Labs 05/26/24 04:23 05/26/24 04:23 Labs: Laboratory Results - last 24 hr 05/26/24 05/26/24 04:23 09:00 WBC 12.9 H RBC 3.13 L Hgb 8.2 L Hct 26.7 L MCV 85 MCH 26.2 MCHC 30.7 L RDW Std Deviation 54.2 H Plt Count 140 Neut % (Auto) 77 Lymph % (Auto) [address] [place] % (Auto) 10 Eos % (Auto) 2 Baso % (Auto) 0 Neut # (Auto) 9.9 H Lymph # (Auto) 1.2 [place] # (Auto) 1.3 H Eos # (Auto) 0.3 Baso # (Auto) 0.0 Immature Gran # (Auto) 0.24 H Absolute Nucleated RBC 0.00 Immature Gran % 2 H Nucleated RBC % 0 Puncture Site Right Radial ABG pH 7.29 L ABG pCO2 61 H ABG pO2 71 L D ABG HCO3 29 H ABG O2 Saturation 94 ABG Base Excess 2 FiO2 70 Sodium 146 H Potassium 3.8 Chloride 111 H Carbon Dioxide 27.9 Anion Gap 7 BUN 24 H Creatinine 1.8 H Estim Creat Clear Calc 29.0 L eGFR 32 L BUN/Creatinine Ratio 13 Glucose 82 Calculated Osmolality 293 Calcium 8.1 L Corrected Calcium 9.4 Phosphorus 3.6 Magnesium 1.8 Total Bilirubin 0.2 L AST 26 ALT 14 Alkaline Phosphatase 73 Total Protein 5.2 L Albumin 2.4 L Globulin 2.8 Albumin/Globulin Ratio 0.9 L Impressions Impression: Abdominal distention resolved colonoscopy canceled because of the passing of the medical problems passing flatus, will continue to monitor Altered mental status clearing up after discontinuation of Seroquel and other medication and cutting down the dose of methadone No evidence of GI bleeding at the moment continue current management ABG Interpretation ABG results: 05/23/24 05/23/24 05/26/24 12:35 16:24 09:00 ABG pH 7.17 L* 7.37 D 7.29 L ABG pCO2 71 H* 56 H D 61 H ABG pO2 68 L 104 D 71 L D ABG HCO3 26 32 H 29 H ABG O2 Saturation 89 L 98 94 ABG Base Excess -3 6 H 2 Assessment & Plan A&P Narrative # Pain abdomen with bloody diarrhea abnormal CT scan of the abdomen pelvis differential diagnosis include infectious colitis versus inflammatory bowel disease Plan stool for Gram stain stool culture and sensitivity stool C. difficile CRP ANCA antibody Fecal calprotectin If above negative we will consider fiberoptic colonoscopy with possible biopsies Agree with broad-spectrum antibiotics Thank you very much for the opportunity to participate in the care of this patient Time Spent With Patient Time: Total time spent is greater than 50% in coordination of care (as documented) at patient's floor/unit and/or counseling patient:
--- NOTE | 2024-05-26 21:54 | ESPR_ITS ---
Documentation for date of: 05/26/24 Subjective Subjective Interval history: Patient was seen in ICU today. Reportedly more lethargic this morning, lowered the dose of mirtazapine. No seizure-like episodes reported in the last 48 hours Exam - Neurology Vital Signs Temp Pulse Resp BP Pulse Ox O2 Del Method O2 Flow Rate 97.2 F 95 22 H 121/74 96 High Flow Nasal Cannula 40 05/26/24 12:00 05/26/24 18:00 05/26/24 18:00 05/26/24 18:00 05/26/24 18:00 05/26/24 18:00 05/26/24 18:00 FiO2 100 05/26/24 18:00 Objective Labs 05/26/24 04:23 05/26/24 04:23 Labs: Laboratory Results - last 24 hr 05/26/24 05/26/24 04:23 09:00 WBC 12.9 H RBC 3.13 L Hgb 8.2 L Hct 26.7 L MCV 85 MCH 26.2 MCHC 30.7 L RDW Std Deviation 54.2 H Plt Count 140 Neut % (Auto) 77 Lymph % (Auto) 9 L [place] % (Auto) 10 Eos % (Auto) 2 Baso % (Auto) 0 Neut # (Auto) 9.9 H Lymph # (Auto) 1.2 [place] # (Auto) 1.3 H Eos # (Auto) 0.3 Baso # (Auto) 0.0 Immature Gran # (Auto) 0.24 H Absolute Nucleated RBC 0.00 Immature Gran % 2 H Nucleated RBC % 0 Puncture Site Right Radial ABG pH 7.29 L ABG pCO2 61 H ABG pO2 71 L D ABG HCO3 29 H ABG O2 Saturation 94 ABG Base Excess 2 FiO2 70 Sodium 146 H Potassium 3.8 Chloride 111 H Carbon Dioxide 27.9 Anion Gap 7 BUN 24 H Creatinine 1.8 H Estim Creat Clear Calc 29.0 L eGFR 32 L BUN/Creatinine Ratio 13 Glucose 82 Calculated Osmolality 293 Calcium 8.1 L Corrected Calcium 9.4 Phosphorus 3.6 Magnesium 1.8 Total Bilirubin 0.2 L AST 26 ALT 14 Alkaline Phosphatase 73 Total Protein 5.2 L Albumin 2.4 L Globulin 2.8 Albumin/Globulin Ratio 0.9 L ABG Interpretation ABG results: 05/23/24 05/23/24 05/26/24 12:35 16:24 09:00 ABG pH 7.17 L* 7.37 D 7.29 L ABG pCO2 71 H* 56 H D 61 H ABG pO2 68 L 104 D 71 L D ABG HCO3 26 32 H 29 H ABG O2 Saturation 89 L 98 94 ABG Base Excess -3 6 H 2 Assessment & Plan Assessment and plan (1) AMS (altered mental status): Status: Acute Assessment and plan: Intermittent episodes of panic attack likely from underlying anxiety. EEG did not show any epileptiform discharges Keppra has been discontinued, no recurrent episodes reported Continue with Seroquel and fluoxetine for anxiety and depression Noted mirtazapine dose was reduced (2) Hypoxia: Status: Acute Assessment and plan: On high flow oxygen (3) Pneumonia: Status: Acute Assessment and plan: Continue with antibiotics as per primary team (4) Colitis: Status: Acute Assessment and plan: On metronidazole
[2024-05-27] VITALS (118 sets, daily range): BP systolic 72–147; BP diastolic 43–85; PULSE 39–112; RESP 0–39; TEMP 36.8–37.4; O2SAT 73–100; BMI 26.3
[2024-05-27] MEDS: MIRTAZAPINE 15 MG TABLET 7.5 MG PO ×2 (01:28→21:57)
[2024-05-27] MEDS: FLUoxetine HCL 10 MG CAPSULE 40 MG PO ×2 (01:29→21:57)
[2024-05-27 05:18] LABS: Basophils # (Auto) 0.1 Thou/mm3 (0.0-0.2); Basophils % (Auto) 0 % (0-2.5); Eosinophils # (Auto) 0.3 Thou/mm3 (0.0-0.5); Eosinophils % (Auto) 2 % (0-10); Hematocrit 26.5 % (36.0-46.0); Immature Granulocytes % (Auto) 1 % (0-0); Lymphocytes # (Auto) 1.2 Thou/mm3 (1.0-4.8); Lymphocytes % (Auto) 8 % (10-50); Mean Corpuscular HGB Conc 29.4 g/dl (31.0-37.0); Mean Corpuscular Hemoglobin 25.8 pg (25.0-35.0); Mean Corpuscular Volume 88 fL (80-100); Monocytes # (Auto) 1.3 Thou/mm3 (0.0-0.8); Monocytes % (Auto) 9 % (0-12); Neutrophils # (Auto) 12.6 Thou/mm3 (1.8-7.7); Neutrophils % (Auto) 80 % (37-80); Nucleated Red Blood Cell % 0 /100 WBC (0); Platelet Count 212 Thou/mm3 (140-440); RDW Standard Deviation 56.5 fL (36.4-46.3); Red Blood Count 3.02 Miln/mm3 (4.00-5.20); White Blood Count 15.7 Thou/mm3 (3.6-11.0)
[2024-05-27 05:31] LABS: Hemoglobin 7.8 g/dL (12.0-16.0)
[2024-05-27 06:04] LABS: Alanine Aminotransferase 13 U/L (10-49); Albumin, Serum 2.4 gm/dL (3.5-5.0); Albumin/Globulin Ratio 0.8 (1.2-2.2); Alkaline Phosphatase 76 U/L (46-116); Anion Gap 6 (7-16); Aspartate Amino Transferase 22 U/L (0-34); BUN/Creatinine Ratio 13 Ratio (12-20); Bilirubin,Total < 0.2 mg/dL (0.3-1.2); Blood Urea Nitrogen 29 mg/dL (9-23); Calcium (Corrected) 9.3 mg/dL (8.5-10.1); Carbon Dioxide 28.7 mMol/L (20.0-31.0); Chloride 110 mMol/L (98-107); Creatinine (Component) 2.2 mg/dL (0.6-1.3); Estimated Creatinine Clearance 25.9 mL/min (>60); Globulin 2.9 gm/dL (2.3-3.5); Glucose 111 mg/dL (74-106); Osmolality,Calculated 295 (275-295); Procalcitonin 4.77 ng/ml (0.0-0.49); Sodium 145 mMol/L (136-145); Total Protein 5.3 gm/dL (5.7-8.2); eGFR 25 See Note
[2024-05-27] MEDS: POLYETHYLENE GLYCOL 17 GM PACKET PO (08:34)
[2024-05-27] MEDS: NALOXEGOL OXALATE 25 MG TABLET (NON-FORMULARY) PO (08:34)
[2024-05-27 10:22] LABS: B-Type Natriuretic Peptide 251 pg/mL (0-100)
[2024-05-27] MEDS: BUMETANIDE INJ 0.25 MG/ML VIAL 4 ML 2 MG IVP (10:58)
[2024-05-27] MEDS: METHADONE HCL 10 MG TABLET 50 MG PO (10:59)
[2024-05-27] MEDS: DEXMEDETOMIDINE 200 MCG IVPB 200 MCG/50 ML BOTTLE IV (12:29)
[2024-05-27] MEDS: HYDROmorphone INJ 2 MG/ML VIAL 0.5 MG IVP (12:41)
[2024-05-27] MEDS: Norepinephrine/D5W 8mg/250ml 8 MG/250 ML BAG 7.013 MG IV (12:47)
[2024-05-27] MEDS: EPINEPHrine INJ 0.1 MG/ML SYRINGE 10ML 1 MG IV ×2 (12:57→13:10)
[2024-05-27] MEDS: ETOMIDATE INJ 2 MG/ML VIAL 10 ML 20 MG IVP (12:57)
[2024-05-27] MEDS: ROCURONIUM INJ 10 MG/ML VIAL 10 ML 100 MG IVP (12:58)
[2024-05-27] MEDS: MIDAZOLAM INJ 1 MG/ML VIAL 2 ML 5 MG IM (13:03)
[2024-05-27] MEDS: SUCCINYLCHOLINE INJ 20 MG/ML VIAL 10 ML 100 MG IV (13:04)
[2024-05-27] MEDS: SUCCINYLCHOLINE INJ 20 MG/ML VIAL 10 ML 50 MG IM (13:07)
--- NOTE | 2024-05-27 13:14 | XR_ITS ---
Examination: AP chest single view Technique one AP portable semiupright chest single view Exam date and time: May 27, 2024 1338 hours Comparison 2024 INDICATIONS: Hypoxic respiratory failure. FINDINGS: Severe bilateral lung opacity Endotracheal tube tip at the origin of the right mainstem bronchus Orogastric tube in stomach, the tip is below the level film IMPRESSION: Recommend retracting the tracheal tube 2 cm
[2024-05-27] MEDS: fentaNYL 2,500 MCG/250 ML BAG 2,500 MCG/250 ML BAG IV (13:26)
[2024-05-27] MEDS: PROPOFOL 1,000 MG IVPB 1,000 MG/100 ML VIAL 4.488 MG IV (13:27)
--- NOTE | 2024-05-27 13:34 | PC.SS ---
Update: Patient has been intubated.
--- NOTE | 2024-05-27 14:21 | PD.RESPROC ---
Procedures Procedure Date / Time 05/27/24 1421 Procedure Narrative Procedure Narrative: Attending Attestation: I was present for entire procedure. Course complicated by loss of PIV and failed response to intermittent push-dose epiephrine and levophed with RSI failing. Hypotensive and able to support with levophed gtt along with push-dose epinepherine with 10-30 mcg pushes to keep SBP >100. Bagging done after failed attempt to pre-oxygenate with Bipap. Ultimately,we did administer IM versed and succinylcholine to facilitate successful intubation as documented. Central line placed emergently, see separate note which was removed. Required 1mg push of epinephrine and 1mg of atropine during intubation in eddie-arrest phase due to bradycardia and hypotension though pulse remained intact at all times. Follow up chest film showed ETT tip at the right mainstem bronchus take off and retracted with adequate positioning achieved. Patient place don MV after adequate adjustments in I:E to optimize for recruitment given her diffusion limitations and V/Q mismatch. Intubation Indication(s): acute Resp Failure and inability to protect airway Informed consent obtained: procedure done urgently Time out done, and the following verified: correct patient and procedure Sedative: etomidate Mg given: 20 Paralytic: rocuronium Mg given: 100 Laryngoscope: other (glidescope S3) ET tube size: 7.5 ET tube uncuffed: Yes Tube secured depth (cm): 20 Tube placement confirmation: visualized tube passing through cords, equal breath sounds bilaterally, no breath sounds over epigastrium and confirmation by capnometry Patient tolerated procedure: well and no complications Intubation complications: none
--- NOTE | 2024-05-27 14:43 | PD.RESPROC ---
Procedures Procedure Date / Time 05/27/24 1443 Procedure Narrative Procedure Narrative: Attending Attestation: Emergent procedure, line only to be used during intubation and removed when central access confirmed in the RIJ. Patient tolerated procedure well and used in intubation and resuscitation eddie-arrest. Patient had minimal blood loss from the procedure. Central Line Placement Right Femoral: Indication(s): shock and poor, or inadequate peripheral venous access Informed consent obtained: other (emergent due to hemodynamic instability and failed IV access) Time out done, and the following verified: correct patient and procedure Patient placed on monitor/pulse ox: Yes Hand Hygiene: soap & water and alcohol-based hand rub Max Sterile Barrier Techniques used: other (emergently placed ) Central line prep: Chlorhexidine scrub Ultrasound used for placement: No Central line lumen inserted: triple Post procedure: sutured in place Patient tolerated procedure: well and no complications Complications: none Procedure comment: Performed by Dr. Zavala. Emergently placed due to hemodynamic instability and lack of IV access. This catheter was removed immediately following placement of RIJ central line.
[2024-05-27 14:53] LABS: Base Excess -3 (-3-3); HCO3 29 mEq/L (20-26); Inspired Oxygen, FIO2 100 %; O2 Saturation 94 % (91-98); PCO2 108 mmHg (32.0-48.0); PO2 90 mmHg (83-108)
[2024-05-27 14:55] LABS: Allen Test Performed/OK; Puncture Site Right Radial
[2024-05-27 14:57] LABS: pH, Arterial 7.03 (7.35-7.45)
--- NOTE | 2024-05-27 15:10 | PD.RESPRO ---
Documentation for date of: 05/27/24 Subjective Subjective Interval history: Patient was examined bedside this morning, she looked little less lethargic than yesterday. She knew her name, she knew that she was in the hospital and she knew the president. Had a conversation with his son at bedside and explained him condition to worsening CT scan results. As per the son neighbour have Rosters,And that could be the factor that is contributing to her worsening pulmonary fibrosis. Around noon we are trying to sit her down but suddenly she started to desat around 70s high flow oxygen was maxed up to 100. On top of high flow additional oxygen was given via bag and max ventilation. Her oxygenation went up to high 90s. Then again she started to saturate down, tried to calm her down, changed her to BiPAP even on BiPAP her saturation was not maintained. Decision was made to intubate her. Consent was taken from son present at bedside. While in the process of intubation her peripheral IV line got infiltrated were not able to give IV medication at that point tried doing Versed, IM succinylcholine. An emergency right femoral line was placed patient was intubated and mechanically ventilated. Started the patient on Bumex with target of negative balance of 2 L. Started her on levoquin for HAP coverage . she got a dose od diludid 0.5 . Exam Vital Signs Temp Pulse Resp BP Pulse Ox O2 Del Method O2 Flow Rate 99.0 F 91 23 H 102/50 L 94 L High Flow Nasal Cannula 40 05/27/24 06:00 05/27/24 15:05 05/27/24 15:05 05/27/24 15:05 05/27/24 15:05 05/27/24 06:00 05/27/24 10:15 FiO2 100 05/27/24 14:10 Narrative Exam GENERAL:Intubated and mechanically ventillated. NEURO: Intubated. HEENT: Dry mucosa. Eyes open, symmetrical, & clear CARDIO: No chest pain on palpation. Heart RRR, no obvious murmurs PULM: Crackles heard bilaterally no auscultation GI: Abdomen soft, nondistended, no pain on palpation. BSx4 URO/COMMERCIAL SINGER:: No further abnormalities noted. haq's in place SKIN/MSK/EXT: No wounds/rashes/edema/amputations, Pedal pulses present B/L Objective Labs 05/28/24 04:28 05/28/24 16:28 Labs: Laboratory Results - last 24 hr 05/27/24 05/27/24 04:32 14:40 WBC 15.7 H RBC 3.02 L Hgb 7.8 L Hct 26.5 L MCV 88 MCH 25.8 MCHC 29.4 L RDW Std Deviation 56.5 H Plt Count 212 D Neut % (Auto) 80 Lymph % (Auto) 8 L [place] % (Auto) 9 Eos % (Auto) 2 Baso % (Auto) 0 Neut # (Auto) 12.6 H Lymph # (Auto) 1.2 [place] # (Auto) 1.3 H Eos # (Auto) 0.3 Baso # (Auto) 0.1 Immature Gran # (Auto) 0.20 H Absolute Nucleated RBC 0.00 Immature Gran % 1 H Nucleated RBC % 0 Puncture Site Right Radial ABG pH 7.03 L* D ABG pCO2 108 H* D ABG pO2 90 ABG HCO3 29 H ABG O2 Saturation 94 ABG Base Excess -3 FiO2 100 Sodium 145 Potassium 4.0 Chloride 110 H Carbon Dioxide 28.7 Anion Gap 6 L BUN 29 H Creatinine 2.2 H Estim Creat Clear Calc 25.9 L eGFR 25 L BUN/Creatinine Ratio 13 Glucose 111 H Calculated Osmolality 295 Calcium 8.0 L Corrected Calcium 9.3 Total Bilirubin < 0.2 L AST 22 ALT 13 Alkaline Phosphatase 76 B-Natriuretic Peptide 251 H Total Protein 5.3 L Albumin 2.4 L Globulin 2.9 Albumin/Globulin Ratio 0.8 L Procalcitonin 4.77 H ABG Interpretation ABG results: 05/23/24 05/23/24 05/26/24 12:35 16:24 09:00 ABG pH 7.17 L* 7.37 D 7.29 L ABG pCO2 71 H* 56 H D 61 H ABG pO2 68 L 104 D 71 L D ABG HCO3 26 32 H 29 H ABG O2 Saturation 89 L 98 94 ABG Base Excess -3 6 H 2 05/27/24 14:40 ABG pH 7.03 L* D ABG pCO2 108 H* D ABG pO2 90 ABG HCO3 29 H ABG O2 Saturation 94 ABG Base Excess -3 Quality Measures Quality Measures VTE prophylaxis Assessment & Plan Assessment Current Active Medications: Generic Name Dose Route Start Last Admin Trade Name Freq PRN Reason Stop Dose Admin Acetaminophen 650 mg 05/21/24 14:55 05/25/24 23:44 Acetaminophen 325 Mg Tablet PO 06/16/24 19:57 650 mg Q6H PRN Administration Fever >100.4 or pain 1-3 Bumetanide 2 mg 05/27/24 09:30 05/27/24 10:58 Bumetanide Inj 0.25 Mg/Ml Vial 4 Ml IVP 06/26/24 09:29 2 mg QDAY BRIGIDO Administration Methadone 109 Mg 0 ea 05/19/24 09:45 05/26/24 12:34 Solution PO 06/18/24 09:44 Not Given QDAY BRIGIDO Protocol Fluoxetine HCl 40 mg 05/25/24 21:00 05/27/24 01:29 Fluoxetine Hcl 10 Mg Capsule PO 06/24/24 20:59 40 mg HS BRIGIDO Administration Sodium Chloride 1,000 mls @ 80 mls/hr 05/24/24 13:39 05/26/24 06:18 Ns IV 06/23/24 13:38 80 mls/hr .[id number] BRIGIDO Administration Dexmedetomidine/Sodium Chloride 200 mcg in 50 mls @ 3.74 mls/hr 05/27/24 12:26 05/27/24 12:29 Precedex Ivpb IV 06/26/24 12:25 0.2 mcg/kg/hr .[id number] PRN 3.74 mls/hr Per PROTOCOL Administration Protocol 0.2 MCG/KG/HR Norepinephrine/Dextrose 8 mg in 250 mls @ 7.013 mls/hr 05/27/24 12:43 05/27/24 13:00 Levophed In D5w 8mg/250ml IV 06/26/24 12:42 0.2 mcg/kg/min .Q24H PRN 28.05 mls/hr PER PROTOCOL Titration Protocol 0.05 MCG/KG/MIN Propofol 1,000 mg in 100 mls @ 2.244 mls/hr 05/27/24 12:48 05/27/24 13:27 Diprivan Ivpb IV 06/26/24 12:47 10 mcg/kg/min .Q24H PRN 4.488 mls/hr PER PROTOCOL Administration Protocol 5 MCG/KG/MIN Fentanyl Citrate 2,500 mcg in 250 mls @ 2.5 mls/hr 05/27/24 12:49 05/27/24 13:26 Sublimaze Inj 2,500 Mcg/250 Ml Bag IV 06/01/24 12:48 25 mcg/hr .Q24H PRN 2.5 mls/hr PER PROTOCOL Administration Protocol 25 MCG/HR Levofloxacin/Dextrose 750 mg in 150 mls @ 100 mls/hr 05/27/24 15:00 Levaquin Ivpb IV 06/03/24 14:59 Q48H BRIGIDO Protocol Methadone HCl 50 mg 05/27/24 09:30 05/27/24 10:59 Methadone Hcl 10 Mg Tablet PO 06/01/24 09:29 50 mg QDAY BRIGIDO Administration Protocol Mirtazapine 7.5 mg 05/26/24 21:00 05/27/24 01:28 Mirtazapine 15 Mg Tablet PO 06/25/24 20:59 7.5 mg HS BRIGIDO Administration Naloxegol 25 mg 05/23/24 09:00 05/27/24 08:34 Naloxegol Oxalate 25 Mg Tablet (Non-Formulary) PO 06/22/24 08:59 25 mg QDAY BRIGIDO Administration Naloxone HCl 0.04 mg 05/22/24 09:43 Naloxone Inj 1 Mg/Ml Syringe 2 Ml IV 06/21/24 09:42 Q3M PRN OPIATE REVERSAL Ondansetron HCl 4 mg 05/17/24 19:58 05/20/24 09:14 Ondansetron Inj 2 Mg/Ml Inj 2 Ml IV 06/16/24 19:57 4 mg Q6H PRN Administration NAUSEA OR VOMITING Protocol Polyethylene Glycol 17 gm 05/25/24 09:45 05/27/24 08:34 Polyethylene Glycol 17 Gm Packet PO 06/24/24 09:44 17 gm QDAY BRIGIDO Administration Plan 58-year-old female with PMHx of COPD (less likely on 3 L home oxygen, pulmonary fibrosis ,HTN, and depression who presented with worsening abdominal pain, diarrhea with bright red [place] bleed and admitted for workup and management of abdominal pain and diarrhea. 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 Evaluated by neurology, recommends to discontinue Keppra as symptoms are likely to be related to panic/anxiety disorder than seizures. 05/26/24- Intermittent episodes of panic attack likely from underlying anxiety.EEG did not show any epileptiform discharges,Keppra has been discontinued, no recurrent episodes reported.Will discontinue her Seroquel, mitrazapine dosed decreased to 7.5. . continue fluoxitine 05/27/24: patient intubated and MV RESP #Acute on chronic hypoxic respi failure -Intubated and MV #Community-acquired pneumonia #Severe pulmonary fibrosis #COPD ruled out -She has a history of pulmonary fibrosis on home steroids -Chest x-ray showed extensive bilateral consolidation more in the middle lobes. -CT scan showed severe pulmonary fibrosis -She reports taking prednisone at home prn if she has excerbation . And as per family primary is trying to keep her in lung transplant list -PSI/PORT : 48 points ; Risk class II -DODIE score 3 points , (13 %, 28 day mortality ) -Covid negative -RSV negative -Influenza negative -Blood cultures negative -Continue DuoNebs every 8 hrly -Discontinued ciprofloxacin and started her on ceftriaxone 05/25/2024: Still pending results of PFT. Attempts made to reach out to lung care center, unsuccessful. Will continue to attempt to retrieve results, patient saturations still intermittently dropping and is alternating between nasal cannula and high flow. 05/26/24- Got records for her pulmonary function test FVC percent predicted pre is 37, PFT shows complex restriction, unable to access diffusing capacity due to suboptimal test. 05/27/24: Around noon we are trying to sit her down but suddenly she started to desat around 70s high flow oxygen was maxed up to 100. On top of high flow additional oxygen was given via bag and max ventilation. Her oxygenation went up to high 90s. Then again she started to saturate down, tried to calm her down, changed her to BiPAP even on BiPAP her saturation was not maintained. Decision was made to intubate her. Consent was taken from son present at bedside. While in the process of intubation her peripheral IV line got infiltrated were not able to give IV medication at that point tried doing Versed, IM succinylcholine. An emergency right femoral line was placed patient was intubated and mechanically ventilated. Vent setting currently: VT-275,RR-20,PEEP-6,Fios-100, I:E 1.5:[address] scan showed:Severe bilateral pulmonary fibrosis Significant superimposed pneumonia possibly pulmonary edema CVS -As per daughter she has some valve issues and trying to follow Dr allyson Hathaway , our record has echo from 2018 with EF of 55/60 % Echo : Normal LV size and function , with EF 60-65%, no PTN #Primary hypertension -BP today- 155/77 -From home medication reconciliation, patient appears to be no longer taking clonidine. -continue to monitor blood pressure while in hospital. -May consider starting antihypertensives based on blood pressure trend 05/26/2024: Blood pressure soft, no need for antihypertensives at this time. 05/27/24: patient Intubated and MV On pressure support GI #Diffuse colitis, possible GI infection #GI bleed #Ileus ruled out #Leukocytosis #H pylori -Patient presented with 1 week of progressively worsening abdominal pain and watery diarrhea with occasional bright red blood. -On exam on admission patient has diffuse generalized tenderness to palpation of the abdomen with rebound tenderness but no guarding. DDx: Medication side effect, IBS, IBD -CT abdomen pelvis showed Liver mildly irregular in contour. Severe diffuse hyperemia and inflammatory change involving the entire colon. -Liver ultrasound significant for fatty liver with trace free fluid. -On admission WBC 17.2??>12.5 -Blood culture negative x 48 hours preliminary -Hemoglobin stable at 12.7 on admission and hemoglobin is 9.4 today -C. difficile PCR negative -Stool for WBCs negative -Hepatitis panel negative -Stool culture negative -ANCA studies pending -Stool calprotectin, Giardia and norovirus pending -Avoiding NSAIDs -Pro bri 0.91 -GI, Dr. Corley consulted and closely following the case. Appreciate recommendations. 05/21: Patient had worsening abdominal distention. AXR was ordered which showed severely dilated bowel loops.GoLytely put on hold. Fleet enema x 1 orderedGI, Dr. Corley consulted. Rectal tube was placed. -05/22/2024?will start patient on Movantik 25 mg p.o. daily as patient takes methadone and is likely having ileus due to opioid use. Will also restart GoLytely as tolerated and attempt to clear the patient for colonoscopy -05/23/2024- Discontinue ciprofloxacin and started the patient on ceftriaxone, will continue metronidazole . simethicone and GoLytely discontinued .Dr corley on board -05/24/24: continue ceftriaxone and metronidazole ,NPO, still not passing gas . Dr corley on board , pending colonoscopy -05/25/2024: Discontinued antibiotics. Patient had large bowel movement yesterday, currently has no abdominal symptoms. Speech evaluated, recommends dysphagia diet. Pending additional recommendations from GI. -05/26/24: will add bowel regimen,GI on board -05/27/24: will continue bowel regimen RENAL #Lactic acidosis -resolved -type A (hypoxia) vs type B (seizure ) -will trend lactate -Continue to monitor #respiratory acidosis -resolving -likely sec to underlying copd and pulmonary fibrosis -currently on high flow -we will follow repeat ABG #Mild REBA -currently 1.8 , -will continue to monitor 05/25/2024: Creatinine increased to 1.6 today. Patient was originally on IV fluids which fell off, will continue IV fluids NS patient has been cleared by speech but will encourage oral intake as tolerated. 05/26/24: cr today is 1.8 . will incourage oral intake 05/27/24: today cr is 2.2 , started her on bumex , goal is negative 2 L . can start bumex drip if needed . INFECTIOUS -As above GI ENDO #Hypoglycemia Possibly due to decreased oral intake and patient being NPO. will encourage oral intake PSYCHIATRY #Depression -Home medication fluoxetine 40mg po BID and Quetiapine 400 mg po Qday. - Fluoxetine on hold due to concern of diarrhea - Continue quetiapine 400 Mg at bedtime 05/25/2024: Discontinued amitriptyline and started fluoxetine 40 mg daily, reduce dose of Seroquel to 200 mg and started on Remeron 15 mg. 05/26/24: Will discontinue her Seroquel, mitrazapine dosed decreased to 7.5., continue fluoxitine #Opioid dependence, on methadone therapy. - started her on 75 % of her methadone . (80 mg ) today. will call her methadone clinic tomorrow ([facility] [place], [place] -[phone]) . 05/27/24: we decreased her dose to 50. HEMATOLOGY Normocytic anemia -today Hb is 8.2 , -will do iron studies -will continue to monitor , transfuse if Hb is <7 05/25/2024: Hemoglobin dropped to 8.5 today we will continue to monitor. Health maintenance: Disposition: ICU for acute hypoxic respi failure Intubated and MV Diet:Npo Lines: righi IJ GI Prophylaxis: protonix Thrombo Prophylaxis: SCDs Code status: FULL CODE Case was discussed with attending physician, Dr Sally Alonzo MD,PGY-3 Attending Provider Attestation/Addendum Patient seen and examined with the above resident, Darby Alonzo MD. I agree with the findings, assessment, and plan of care as documented except for any differences below. Patient with significant decline after panic attack this afternoon on HHHFNC at maximal settings. Attempts to support but mentation continued to deteriorate and failed oxygenation/ ventilation with Bipap due to anxiety/ agitation Precedex attempted to facilitate along with diluadid for air hunger with no significant relief. Family discussion had and agreed to intubation. See seperate notes for course for stabilization. I:E inverted with low flow to optimize oxygen, tolerate permissive hypercapnea for now. Patient with significant ILD flare up. No fever and procalcitonin is elevated form earlier in admission though difficult to use as definitive testing. I will attempt bronchoscopy tomorrow, too unstable to attempt interruption in ventilation at this time. Wean FiO2 as able. Patient on lung protective settings as tolerated, PPlat optimized with PPlat tolerate din low 30s. Reflection of the severity of her ILD. CT done showed worsening infiltrates and we attempted to diurese. Clot excluded and infection less likely after completion of 1 week course of antibiotics just recently stopped for colitis. Will assess for infection and if excluded will proceed his pulse dose steroids of 10mg/ kg daily for ILD flare. Family able to relay that exposure could be rooster's at neighbor's home but no mold or other CHP precipitating agent. She denied any pets except an old dog who passed many years ago already. No nearby farming to consider alternatively. Severe restriction on OP PFTs we obtained at baseline. We have negative MAHNAZ panel in records as well. Did recieve steroids as OP and PCP was inquiring through family about this. I did discuss with family role of treatment and potential therapy would be transplant but she is not a candidate at this time given high dose methadone/ seroquel and severe debility. Further intubation/ MV is a relative contraindication for lung transplant too. If unable to wean in coming days, likely will be protracted course and need for tracheotomy should they like to continue to pursue aggressive care. I did make it clear that she has very high risk of further morbidity and mortality even with best case scenario. Total critical care time: I personally spent 90 minutes for review of physiologic parameters, directing plan of care throughout the day, and extensive counseling of patient/ family at the bedside. 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 Patient continues to require critical care services for acute on chronic hypoxic respiratory failure 2/2 interstitial lung disease with acute exacerbation. She remains at high risk for further morbidity and mortality warranting ongoing care and management only available in the ICU.
--- NOTE | 2024-05-27 15:34 | XR_ITS ---
Examination: AP chest single view TECHNIQUE: AP portable semiupright chest single view Exam date and time: May 27, 2024 1542 hours Comparison May 27, 2024 1338 hours FINDINGS: Tracheal tube tip now 28 mm above irma Extensive bilateral lung opacity again noted Stable and satisfactory position right internal jugular central line tip and orogastric tube IMPRESSION: Tracheal tube tip now 28 mm above irma
[2024-05-27] MEDS: VASOPRESSIN IN NS IVPB 20 UNIT/100 ML BAG 9 UNIT IV (15:36)
--- NOTE | 2024-05-27 15:56 | PD.RESPROC ---
Procedures Procedure Date / Time 05/27/24 1556 Procedure Narrative Procedure Narrative: Attending Attestation: Emergent line removed from the right femoral vein. I agree with procedure as documented. Resident above placed line at my direction though I was not present for the procedure. No immediate complication of procedure and follow up chest film shows no post-procedure PTX and adequate placement of the tip of the catheter. Central Line Placement Right IJ: Indication(s): poor, or inadequate peripheral venous access Informed consent obtained: obtained from surrogate decision maker Time out done, and the following verified: correct patient, side and site, procedure, patient position and implants and/or equipment Patient placed on monitor/pulse ox: Yes Hand Hygiene: scrub, soap & water and alcohol-based hand rub Max Sterile Barrier Techniques used: cap, mask, sterile gown, sterile gloves and sterile full body drape Central line prep: Povidone-Iodine 1%, Chlorhexidine scrub and sterile drapes applied Ultrasound used for placement: Yes Sterile Technique if Ultrasound used, including sterile gel: yes Central line lumen inserted: triple Post procedure: sutured in place, good blood return, all ports aspirated, flushed, capped and sterile dressing applied Post procedure x-ray: tip of catheter in good position and no pneumothorax seen Patient tolerated procedure: well EBL(ml): 10 Complications: none
[2024-05-27] MEDS: PANTOPRAZOLE INJ 40 MG VIAL IV (16:53)
[2024-05-27] MEDS: LEVOFLOXACIN/D5W 750MG IVPB 750 MG/150 ML BAG 100 MG IV (16:54)
--- NOTE | 2024-05-27 17:27 | ESPR_ITS ---
Documentation for date of: 05/27/24 Subjective Subjective Interval history: Patient evaluated hemoglobin hematocrit 7.8 and 26.5 no evidence of any active GI bleed Exam Vital Signs Temp Pulse Resp BP Pulse Ox O2 Del Method O2 Flow Rate 99.0 F 91 23 H 102/50 L 94 L High Flow Nasal Cannula 40 05/27/24 06:00 05/27/24 15:05 05/27/24 15:05 05/27/24 15:05 05/27/24 15:05 05/27/24 06:00 05/27/24 10:15 FiO2 100 05/27/24 14:10 Objective Labs 05/27/24 04:32 05/27/24 04:32 Labs: Laboratory Results - last 24 hr 05/27/24 05/27/24 04:32 14:40 WBC 15.7 H RBC 3.02 L Hgb 7.8 L Hct 26.5 L MCV 88 MCH 25.8 MCHC 29.4 L RDW Std Deviation 56.5 H Plt Count 212 D Neut % (Auto) 80 Lymph % (Auto) 8 L [place] % (Auto) 9 Eos % (Auto) 2 Baso % (Auto) 0 Neut # (Auto) 12.6 H Lymph # (Auto) 1.2 [place] # (Auto) 1.3 H Eos # (Auto) 0.3 Baso # (Auto) 0.1 Immature Gran # (Auto) 0.20 H Absolute Nucleated RBC 0.00 Immature Gran % 1 H Nucleated RBC % 0 Puncture Site Right Radial ABG pH 7.03 L* D ABG pCO2 108 H* D ABG pO2 90 ABG HCO3 29 H ABG O2 Saturation 94 ABG Base Excess -3 FiO2 100 Sodium 145 Potassium 4.0 Chloride 110 H Carbon Dioxide 28.7 Anion Gap 6 L BUN 29 H Creatinine 2.2 H Estim Creat Clear Calc 25.9 L eGFR 25 L BUN/Creatinine Ratio 13 Glucose 111 H Calculated Osmolality 295 Calcium 8.0 L Corrected Calcium 9.3 Total Bilirubin < 0.2 L AST 22 ALT 13 Alkaline Phosphatase 76 B-Natriuretic Peptide 251 H Total Protein 5.3 L Albumin 2.4 L Globulin 2.9 Albumin/Globulin Ratio 0.8 L Procalcitonin 4.77 H Impressions Impression: Anemia multifactorial Abdominal distention improved multiple other medical issues continue supportive care ABG Interpretation ABG results: 05/23/24 05/23/2405/26/25 12:35 16:24 09:00 ABG pH 7.17 L* 7.37 D 7.29 L ABG pCO2 71 H* 56 H D 61 H ABG pO2 68 L 104 D 71 L D ABG HCO3 26 32 H 29 H ABG O2 Saturation 89 L 98 94 ABG Base Excess -3 6 H 2 05/27/24 14:40 ABG pH 7.03 L* D ABG pCO2 108 H* D ABG pO2 90 ABG HCO3 29 H ABG O2 Saturation 94 ABG Base Excess -3 Assessment & Plan A&P Narrative # Pain abdomen with bloody diarrhea abnormal CT scan of the abdomen pelvis differential diagnosis include infectious colitis versus inflammatory bowel disease Plan stool for Gram stain stool culture and sensitivity stool C. difficile CRP ANCA antibody Fecal calprotectin If above negative we will consider fiberoptic colonoscopy with possible biopsies Agree with broad-spectrum antibiotics Thank you very much for the opportunity to participate in the care of this patient Time Spent With Patient Time: Total time spent is greater than 50% in coordination of care (as documented) at patient's floor/unit and/or counseling patient:
[2024-05-27] MEDS: ALBUMIN HUMAN 25% IVPB 25 GM/100 ML BTL IV (18:38)
[2024-05-27] MEDS: PHENTOLAMINE 5 MG 6 MG IV (18:43)
[2024-05-27 19:04] LABS: Base Excess -4 (-3-3); HCO3 29 mEq/L (20-26); O2 Saturation 98 % (91-98); PCO2 126 mmHg (32.0-48.0); PO2 116 mmHg (83-108)
[2024-05-27 19:05] LABS: Inspired Oxygen, FIO2 100 %
[2024-05-27 19:07] LABS: pH, Arterial 6.97 (7.35-7.45)
[2024-05-27 19:08] LABS: Allen Test Performed/OK; Puncture Site Left Radial
[2024-05-27] MEDS: Norepinephrine/D5W 8mg/250ml 8 MG/250 ML BAG 57.503 MG IV (19:08)
[2024-05-27 19:56] LABS: Lactate (Lactic Acid) 0.8 mMol/L (0.4-2.0)
[2024-05-27 19:59] LABS: Basophils # (Auto) 0.1 Thou/mm3 (0.0-0.2); Basophils % (Auto) 0 % (0-2.5); Eosinophils % (Auto) 0 % (0-10); Hematocrit 28.6 % (36.0-46.0); Immature Granulocytes % (Auto) 4 % (0-0); Immature Granulocytes Auto 0.95 Thou/mm3 (0.00-0.00); Lymphocytes # (Auto) 0.6 Thou/mm3 (1.0-4.8); Lymphocytes % (Auto) 3 % (10-50); Mean Corpuscular HGB Conc 28.7 g/dl (31.0-37.0); Mean Corpuscular Hemoglobin 26.5 pg (25.0-35.0); Mean Corpuscular Volume 92 fL (80-100); Monocytes # (Auto) 1.4 Thou/mm3 (0.0-0.8); Monocytes % (Auto) 6 % (0-12); Neutrophils # (Auto) 20.9 Thou/mm3 (1.8-7.7); Neutrophils % (Auto) 87 % (37-80); Nucleated Red Blood Cell # 0.04 Thou/mm3 (0.00-0.00); Nucleated Red Blood Cell % 0 /100 WBC (0); Platelet Count 333 Thou/mm3 (140-440); RDW Standard Deviation 59.8 fL (36.4-46.3); White Blood Count 23.9 Thou/mm3 (3.6-11.0)
[2024-05-27 20:02] LABS: Hemoglobin 8.2 g/dL (12.0-16.0)
[2024-05-27 20:26] LABS: Alanine Aminotransferase 14 U/L (10-49); Albumin, Serum 3.4 gm/dL (3.5-5.0); Albumin/Globulin Ratio 1.1 (1.2-2.2); Alkaline Phosphatase 88 U/L (46-116); Anion Gap 7 (7-16); Aspartate Amino Transferase 25 U/L (0-34); BUN/Creatinine Ratio 13 Ratio (12-20); Bilirubin,Total < 0.2 mg/dL (0.3-1.2); Blood Urea Nitrogen 33 mg/dL (9-23); Calcium 8.6 mg/dL (8.3-10.6); Calcium (Corrected) 9.1 mg/dL (8.5-10.1); Carbon Dioxide 30.1 mMol/L (20.0-31.0); Chloride 108 mMol/L (98-107); Creatinine (Component) 2.6 mg/dL (0.6-1.3); Estimated Creatinine Clearance 20.1 mL/min (>60); Glucose 195 mg/dL (74-106); Osmolality,Calculated 300 (275-295); Phosphorous 7.4 mg/dL (2.4-5.1); Sodium 145 mMol/L (136-145); Total Protein 6.4 gm/dL (5.7-8.2); eGFR 21 See Note
[2024-05-27 20:30] LABS: Base Excess -2 (-3-3); HCO3 28 mEq/L (20-26); Inspired Oxygen, FIO2 100 %; O2 Saturation 99 % (91-98); PCO2 91 mmHg (32.0-48.0); PO2 154 mmHg (83-108)
[2024-05-27 20:32] LABS: Allen Test Performed/OK; Puncture Site Left Radial
[2024-05-28] VITALS (142 sets, daily range): BP systolic 50–176; BP diastolic 29–90; PULSE 77–100; RESP 15–38; TEMP 36.2–36.7; O2SAT 87–100; BMI 26.2
[2024-05-28] MEDS: Norepinephrine/D5W 8mg/250ml 8 MG/250 ML BAG 21.038 MG IV (00:09)
[2024-05-28 01:08] LABS: Base Excess -1 (-3-3); HCO3 28 mEq/L (20-26); O2 Saturation 100 % (91-98); PCO2 76 mmHg (32.0-48.0); PO2 182 mmHg (83-108)
[2024-05-28 01:11] LABS: Allen Test Performed/OK; Inspired Oxygen, FIO2 100 %; Puncture Site Left Radial; pH, Arterial 7.18 (7.35-7.45)
[2024-05-28] MEDS: VASOPRESSIN IN NS IVPB 20 UNIT/100 ML BAG 9 UNIT IV ×2 (03:42→15:37)
[2024-05-28 04:30] LABS: Base Excess -2 (-3-3); HCO3 27 mEq/L (20-26); Inspired Oxygen, FIO2 85 %; O2 Saturation 100 % (91-98); PCO2 70 mmHg (32.0-48.0); PO2 152 mmHg (83-108)
[2024-05-28 04:32] LABS: Allen Test Performed/OK; Puncture Site Left Radial
[2024-05-28 04:33] LABS: pH, Arterial 7.19 (7.35-7.45)
[2024-05-28 05:53] LABS: Basophils # (Auto) 0.1 Thou/mm3 (0.0-0.2); Basophils % (Auto) 0 % (0-2.5); Eosinophils % (Auto) 0 % (0-10); Immature Granulocytes % (Auto) 3 % (0-0); Immature Granulocytes Auto 0.45 Thou/mm3 (0.00-0.00); Lymphocytes % (Auto) 6 % (10-50); Mean Corpuscular HGB Conc 28.9 g/dl (31.0-37.0); Mean Corpuscular Hemoglobin 26.3 pg (25.0-35.0); Mean Corpuscular Volume 91 fL (80-100); Monocytes # (Auto) 1.5 Thou/mm3 (0.0-0.8); Monocytes % (Auto) 9 % (0-12); Neutrophils # (Auto) 13.8 Thou/mm3 (1.8-7.7); Neutrophils % (Auto) 82 % (37-80); Nucleated Red Blood Cell # 0.04 Thou/mm3 (0.00-0.00); Nucleated Red Blood Cell % 0 /100 WBC (0); Platelet Count 288 Thou/mm3 (140-440); RDW Standard Deviation 60.1 fL (36.4-46.3); Red Blood Count 2.97 Miln/mm3 (4.00-5.20); White Blood Count 16.9 Thou/mm3 (3.6-11.0)
[2024-05-28 05:56] LABS: Hemoglobin 7.8 g/dL (12.0-16.0)
--- NOTE | 2024-05-28 06:37 | EKG_ITS ---
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
[2024-05-28 06:57] LABS: Alanine Aminotransferase 11 U/L (10-49); Albumin, Serum 2.9 gm/dL (3.5-5.0); Alkaline Phosphatase 80 U/L (46-116); Anion Gap 6 (7-16); Aspartate Amino Transferase 22 U/L (0-34); BUN/Creatinine Ratio 12 Ratio (12-20); Bilirubin,Total < 0.2 mg/dL (0.3-1.2); Blood Urea Nitrogen 36 mg/dL (9-23); Calcium 8.4 mg/dL (8.3-10.6); Calcium (Corrected) 9.3 mg/dL (8.5-10.1); Carbon Dioxide 28.6 mMol/L (20.0-31.0); Chloride 108 mMol/L (98-107); Estimated Creatinine Clearance 17.4 mL/min (>60); Globulin 2.8 gm/dL (2.3-3.5); Glucose 112 mg/dL (74-106); Magnesium 2.2 mg/dL (1.6-2.6); Osmolality,Calculated 294 (275-295); Phosphorous 7.4 mg/dL (2.4-5.1); Potassium 5.1 mMol/L (3.4-5.1); Sodium 143 mMol/L (136-145); Total Protein 5.7 gm/dL (5.7-8.2); eGFR 17 See Note
[2024-05-28] MEDS: Norepinephrine/NS 16mg/250ml 16 MG/250 ML BAG 15.947 MG IV (07:16)
--- NOTE | 2024-05-28 07:38 | XR_ITS ---
Examination: AP chest single view Technique: AP portable supine chest single view Exam date and time: 2024 0827 hrs. Comparison May 27, 2024 Indications: Hypoxic respiratory failure. Findings: Severe bilateral pneumonia ARDS Right internal jugular central line tip SVC satisfactory position Tracheal tube tip 4.5 cm above irma Orogastric tube in the stomach Impression: Severe bilateral pneumonia ARDS pattern Mild associated heart failure
[2024-05-28] MEDS: RINGERS LACTATED 500 ML 500 ML 999 ML IV (07:40)
[2024-05-28] MEDS: EPINEPHrine in NS 4 MG IVPB 4 MG/250 ML BAG 47.25 MG IV (07:45)
[2024-05-28] MEDS: Sodium Bicarb Inj 8.4% SYR 50 ML SYRINGE IV ×4 (08:00→10:09)
[2024-05-28] MEDS: CALCIUM CHLORIDE 10% INJ 10 ML SYRG IV (08:01)
[2024-05-28] MEDS: EPINEPHrine in NS 4 MG IVPB 4 MG/250 ML BAG 472.5 MG IV ×6 (08:12→10:41)
[2024-05-28] MEDS: Norepinephrine/NS 16mg/250ml 16 MG/250 ML BAG 177.188 MG IV ×3 (08:16→10:53)
[2024-05-28] MEDS: EPINEPHrine INJ 0.1 MG/ML SYRINGE 10ML 1 MG IV ×5 (08:23→08:55)
[2024-05-28] MEDS: DOPamine/D5w 400 MG IVPB 400 MG/250 ML BAG 11.813 MG IV (08:36)
[2024-05-28] MEDS: PHENYLEPHRINE HCL 40 MG in SODIUM CHLORIDE 0.9% 96 ML 4.725 MG IV (08:45)
[2024-05-28] MEDS: Sodium Bicarb 8.4% 50ml Vial* 88.23 MEQ in DEXTROSE 5%-WATER 500 ML 100 MEQ IV ×3 (08:46→22:53)
[2024-05-28] MEDS: HYDROCORTISONE SOD SUCC INJ 100 MG VIAL IV (09:20)
--- NOTE | 2024-05-28 10:35 | ESPR_ITS ---
Documentation for date of: 05/28/24 Subjective Subjective Interval history: Patient had significantly increasing pressor requirements this AM, on maximum dose of NorEpi, Epi, and vaso. Family at bedside. Exam Vital Signs Temp Pulse Resp BP Pulse Ox O2 Del Method O2 Flow Rate 97.1 F 86 32 H 83/60 L 98 High Flow Nasal Cannula 40 05/28/24 04:00 05/28/24 08:45 05/28/24 06:20 05/28/24 08:45 05/28/24 06:20 05/27/24 06:00 05/27/24 10:15 FiO2 85 05/28/24 06:13 Narrative Exam GENERAL:Intubated and mechanically ventillated. NEURO: Intubated. HEENT: Dry mucosa. Eyes open, symmetrical, & clear CARDIO: No chest pain on palpation. Heart RRR, no obvious murmurs PULM: Crackles heard bilaterally no auscultation GI: Abdomen soft, nondistended, no pain on palpation. 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 haq's in place SKIN/MSK/EXT: No wounds/rashes/edema/amputations, Pedal pulses present B/L Objective Labs 05/28/24 04:28 05/28/24 16:28 Labs: Laboratory Results - last 24 hr 05/27/24 05/27/24 05/27/24 14:40 18:50 19:42 WBC 23.9 H D RBC 3.10 L Hgb 8.2 L Hct 28.6 L MCV 92 MCH 26.5 MCHC 28.7 L RDW Std Deviation 59.8 H Plt Count 333 D Neut % (Auto) 87 H Lymph % (Auto) 3 L [place] % (Auto) 6 Eos % (Auto) 0 Baso % (Auto) 0 Neut # (Auto) 20.9 H Lymph # (Auto) 0.6 L [place] # (Auto) 1.4 H Eos # (Auto) 0.0 Baso # (Auto) 0.1 Immature Gran # (Auto) 0.95 H Absolute Nucleated RBC 0.04 H Immature Gran % 4 H Nucleated RBC % 0 Puncture Site Right Radial Left Radial ABG pH 7.03 L* D 6.97 L* ABG pCO2 108 H* D 126 H* D ABG pO2 90 116 H D ABG HCO3 29 H 29 H ABG O2 Saturation 94 98 ABG Base Excess -3 -4 L FiO2 100 100 Sodium 145 Potassium 5.0 D Chloride 108 H Carbon Dioxide 30.1 Anion Gap 7 BUN 33 H Creatinine 2.6 H Estim Creat Clear Calc 20.1 L eGFR 21 L BUN/Creatinine Ratio 13 Glucose 195 H D Calculated Osmolality 300 H Lactic Acid 0.8 Calcium 8.6 Corrected Calcium 9.1 Phosphorus 7.4 H Magnesium 2.0 Total Bilirubin < 0.2 L AST 25 ALT 14 Alkaline Phosphatase 88 Total Protein 6.4 Albumin 3.4 L D Globulin 3.0 Albumin/Globulin Ratio 1.1 L 05/27/24 05/28/24 05/28/24 20:17 01:00 04:18 WBC RBC Hgb Hct MCV MCH MCHC RDW Std Deviation Plt Count Neut % (Auto) Lymph % (Auto) [place] % (Auto) Eos % (Auto) Baso % (Auto) Neut # (Auto) Lymph # (Auto) [place] # (Auto) Eos # (Auto) Baso # (Auto) Immature Gran # (Auto) Absolute Nucleated RBC Immature Gran % Nucleated RBC % Puncture Site Left Radial Left Radial Left Radial ABG pH 7.10 L* D 7.18 L* 7.19 L* ABG pCO2 91 H* D 76 H* D 70 H ABG pO2 154 H D 182 H D 152 H D ABG HCO3 28 H 28 H 27 H ABG O2 Saturation 99 H 100 H 100 H ABG Base Excess -2 -1 -2 FiO2 100 100 85 Sodium Potassium Chloride Carbon Dioxide Anion Gap BUN Creatinine Estim Creat Clear Calc eGFR BUN/Creatinine Ratio Glucose Calculated Osmolality Lactic Acid Calcium Corrected Calcium Phosphorus Magnesium Total Bilirubin AST ALT Alkaline Phosphatase Total Protein Albumin Globulin Albumin/Globulin Ratio 05/28/24 04:28 WBC 16.9 H D RBC 2.97 L Hgb 7.8 L Hct 27.0 L MCV 91 MCH 26.3 MCHC 28.9 L RDW Std Deviation 60.1 H Plt Count 288 D Neut % (Auto) 82 H Lymph % (Auto) 6 L [place] % (Auto) 9 Eos % (Auto) 0 Baso % (Auto) 0 Neut # (Auto) 13.8 H Lymph # (Auto) 1.0 [place] # (Auto) 1.5 H Eos # (Auto) 0.0 Baso # (Auto) 0.1 Immature Gran # (Auto) 0.45 H Absolute Nucleated RBC 0.04 H Immature Gran % 3 H Nucleated RBC % 0 Puncture Site ABG pH ABG pCO2 ABG pO2 ABG HCO3 ABG O2 Saturation ABG Base Excess FiO2 Sodium 143 Potassium 5.1 Chloride 108 H Carbon Dioxide 28.6 Anion Gap 6 L BUN 36 H Creatinine 3.0 H Estim Creat Clear Calc 17.4 L eGFR 17 L BUN/Creatinine Ratio 12 Glucose 112 H D Calculated Osmolality 294 Lactic Acid Calcium 8.4 Corrected Calcium 9.3 Phosphorus 7.4 H Magnesium 2.2 Total Bilirubin < 0.2 L AST 22 ALT 11 Alkaline Phosphatase 80 Total Protein 5.7 Albumin 2.9 L D Globulin 2.8 Albumin/Globulin Ratio 1.0 L ABG Interpretation ABG results: 05/23/24 05/23/24 05/26/24 12:35 16:24 09:00 ABG pH 7.17 L* 7.37 D 7.29 L ABG pCO2 71 H* 56 H D 61 H ABG pO2 68 L 104 D 71 L D ABG HCO3 26 32 H 29 H ABG O2 Saturation 89 L 98 94 ABG Base Excess -3 6 H 2 05/27/24 05/27/24 05/27/24 14:40 18:50 20:17 ABG pH 7.03 L* D 6.97 L* 7.10 L* D ABG pCO2 108 H* D 126 H* D 91 H* D ABG pO2 90 116 H D 154 H D ABG HCO3 29 H 29 H 28 H ABG O2 Saturation 94 98 99 H ABG Base Excess -3 -4 L -2 05/28/24 05/28/24 01:00 04:18 ABG pH 7.18 L* 7.19 L* ABG pCO2 76 H* D 70 H ABG pO2 182 H D 152 H D ABG HCO3 28 H 27 H ABG O2 Saturation 100 H 100 H ABG Base Excess -1 -2 Quality Measures Quality Measures VTE prophylaxis Assessment & Plan Assessment Current Active Medications: Generic Name Dose Route Start Last Admin Trade Name Freq PRN Reason Stop Dose Admin Acetaminophen 650 mg 05/21/24 14:55 05/25/24 23:44 Acetaminophen 325 Mg Tablet PO 06/16/24 19:57 650 mg Q6H PRN Administration Fever >100.4 or pain 1-3 Bumetanide 2 mg 05/27/24 09:30 05/28/24 09:26 Bumetanide Inj 0.25 Mg/Ml Vial 4 Ml IVP 06/26/24 09:29 Not Given QDAY BRIGIDO Methadone 109 Mg 0 ea 05/19/24 09:45 05/26/24 12:34 Solution PO 06/18/24 09:44 Not Given QDAY BRIGIDO Protocol Fluoxetine HCl 40 mg 05/25/24 21:00 05/27/24 21:57 Fluoxetine Hcl 10 Mg Capsule PO 06/24/24 20:59 40 mg HS BRIGIDO Administration Sodium Chloride 1,000 mls @ 80 mls/hr 05/24/24 13:39 05/26/24 06:18 Ns IV 06/23/24 13:38 80 mls/hr .[id number] BRIGIDO Administration Dexmedetomidine/Sodium Chloride 200 mcg in 50 mls @ 3.74 mls/hr 05/27/24 12:26 05/27/24 12:48 Precedex Ivpb IV 06/26/24 12:25 0 mcg/kg/hr .[id number] PRN 0 mls/hr Per PROTOCOL Titration Protocol 0.2 MCG/KG/HR Propofol 1,000 mg in 100 mls @ 2.244 mls/hr 05/27/24 12:48 05/27/24 20:00 Diprivan Ivpb IV 06/26/24 12:47 0 mcg/kg/min .Q24H PRN 0 mls/hr PER PROTOCOL Titration Protocol 5 MCG/KG/MIN Fentanyl Citrate 2,500 mcg in 250 mls @ 2.5 mls/hr 05/27/24 12:49 05/28/24 07:40 Sublimaze Inj 2,500 Mcg/250 Ml Bag IV 06/01/24 12:48 0 mcg/hr .Q24H PRN 0 mls/hr PER PROTOCOL Titration Protocol 25 MCG/HR Levofloxacin/Dextrose 750 mg in 150 mls @ 100 mls/hr 05/27/24 15:00 05/27/24 16:54 Levaquin Ivpb IV 06/03/24 14:59 100 mls/hr Q48H BRIGIDO Administration Protocol Vasopressin/Sodium Chloride 20 unit in 100 mls @ 9 mls/hr 05/27/24 15:43 05/28/24 03:42 Vasostrict/Ns Ivpb IV 06/26/24 15:42 0.03 unit/min .[id number] PRN 9 mls/hr PER PROTOCOL Administration Protocol 0.03 UNIT/MIN Norepinephrine Bitartrate 16 mg in 250 mls @ 2.953 mls/hr 05/28/24 07:24 Levophed In Ns 16mg/250ml IV 06/27/24 07:23 .Q24H PRN PER protocol Protocol 0.05 MCG/KG/MIN Epinephrine/Sodium Chloride 4 mg in 250 mls @ 11.813 mls/hr 05/28/24 07:38 05/28/24 08:12 Adrenalin/Ns 4 Mg Ivpb IV 06/27/24 07:37 2 mcg/kg/min .[id number] PRN 472.5 mls/hr per protocol Administration Protocol 0.05 MCG/KG/MIN Phenylephrine HCl 40 mg/ 100 mls @ 0.945 mls/hr 05/28/24 08:24 05/28/24 08:45 Sodium Chloride IV 06/27/24 08:23 0.5 mcg/kg/min .Q24H PRN 4.725 mls/hr Per Cardiogenic Protocol Administration Protocol 0.1 MCG/KG/MIN Sodium Bicarbonate 88.23 meq/ 588.23 mls @ 100 mls/hr 05/28/24 08:24 05/28/24 08:46 Dextrose IV 06/27/24 08:23 100 mls/hr .[id number] BRIGIDO Administration Dopamine HCl/Dextrose 400 mg in 250 mls @ 11.813 mls/hr 05/28/24 08:35 05/28/24 08:36 Intropin In D5w Ivpb IV 06/27/24 08:34 5 mcg/kg/min .[id number] BRIGIDO 11.813 mls/hr Administration Protocol 5 MCG/KG/MIN Epinephrine HCl 16 mg/ Sodium 250 mls @ 3.413 mls/hr 05/28/24 10:16 Chloride IV 06/27/24 10:15 .Q24H PRN per protocol Protocol 0.05 MCG/KG/MIN Methadone HCl 50 mg 05/27/24 09:30 05/28/24 09:26 Methadone Hcl 10 Mg Tablet PO 06/01/24 09:29 Not Given QDAY BRIGIDO Protocol Mirtazapine 7.5 mg 05/26/24 21:00 05/27/24 21:57 Mirtazapine 15 Mg Tablet PO 06/25/24 20:59 7.5 mg HS BRIGIDO Administration Naloxegol 25 mg 05/23/24 09:00 05/28/24 09:27 Naloxegol Oxalate 25 Mg Tablet (Non-Formulary) PO 06/22/24 08:59 Not Given QDAY BRIGIDO Naloxone HCl 0.04 mg 05/22/24 09:43 Naloxone Inj 1 Mg/Ml Syringe 2 Ml IV 06/21/24 09:42 Q3M PRN OPIATE REVERSAL Ondansetron HCl 4 mg 05/17/24 19:58 05/20/24 09:14 Ondansetron Inj 2 Mg/Ml Inj 2 Ml IV 06/16/24 19:57 4 mg Q6H PRN Administration NAUSEA OR VOMITING Protocol Pantoprazole Sodium 40 mg 05/27/24 15:45 05/27/24 16:53 Pantoprazole Inj 40 Mg Vial IV 06/26/24 15:44 40 mg QDAY BRIGIDO Administration Polyethylene Glycol 17 gm 05/25/24 09:45 05/27/24 08:34 Polyethylene Glycol 17 Gm Packet PO 06/24/24 09:44 17 gm QDAY BRIGIDO Administration Plan 58-year-old female with PMHx of COPD (less likely on 3 L home oxygen, pulmonary fibrosis ,HTN, and depression who presented with worsening abdominal pain, diarrhea with bright red MO bleed and admitted for workup and management of abdominal pain and diarrhea. 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 Seizure ruled out, and AMS more related to sedating medication. RESP #Acute on chronic hypoxic respi failure -Intubated and MV #Community-acquired pneumonia #Severe pulmonary fibrosis #COPD ruled out -She has a history of severe pulmonary fibrosis on home steroids -Chest x-ray showed extensive bilateral consolidation more in the middle lobes. -CT scan showed severe pulmonary fibrosis -She reports taking prednisone at home prn if she has exacerbation . And as per family primary is trying to keep her in lung transplant list -PSI/PORT : 48 points ; Risk class II -DODIE score 3 points , (13 %, 28 day mortality ) -Covid negative, RSV negative , Influenza negative -Blood cultures negative -Continue DuoNebs every 8 hrly -lung-protective ventilation measures CVS -As per daughter she has some valve issues and trying to follow Dr allyson Hathaway , our record has echo from 2018 with EF of 55/60 % Echo : Normal LV size and function , with EF 60-65%, no PTN #Cardiogenic shock -Likely secondary to RV failure. CVP ~22 on 05/28 -patient currently on NorEpi, Epi, Vasopressin, dopamine, and milrinone -diuresis PRN with bumex GI #Diffuse colitis, possible GI infection #GI bleed #Ileus ruled out #Leukocytosis #H pylori -Patient presented with 1 week of progressively worsening abdominal pain and watery diarrhea with occasional bright red blood. -On exam on admission patient has diffuse generalized tenderness to palpation of the abdomen with rebound tenderness but no guarding. DDx: Medication side effect, IBS, IBD -CT abdomen pelvis showed Liver mildly irregular in contour. Severe diffuse hyperemia and inflammatory change involving the entire colon. -Liver ultrasound significant for fatty liver with trace free fluid. -C. difficile PCR negative -Stool for WBCs negative -Hepatitis panel negative -Stool culture negative -ANCA studies pending -Stool calprotectin, Giardia and norovirus pending -Avoiding NSAIDs -Pro bri 0.91 -GI, Dr. Lopez consulted and closely following the case. Appreciate recommendations: -no EGD/colonscopy at this time due to worsening respiratory status RENAL #REBA -will continue to monitor -avoid nephrotoxic medications -Diuresis PRN INFECTIOUS -As above GI ENDO #No Acute Issues PSYCHIATRY #Depression -Home medication fluoxetine 40mg po BID and Quetiapine 400 mg po Qday. - Fluoxetine on hold due to concern of diarrhea - discontinue her Seroquel, mitrazapine dosed decreased to 7.5., continue fluoxitine #Opioid dependence, on methadone therapy. -Discussed with methadone clinic to decrease the daily dose to 50 mg HEMATOLOGY Normocytic anemia -will continue to monitor , transfuse if Hb is <7 Health maintenance: Disposition: ICU for acute hypoxic respi failure Intubated and MV Diet:Npo Lines: righi IJ GI Prophylaxis: protonix Thrombo Prophylaxis: SCDs Code status: FULL CODE Case was discussed with attending physician, Dr Sally Guevara, PGY-4 Attending Provider Attestation/Addendum Patient seen and examined at bedside with the above resident, Callum Tristan-Ho, DO. I agree with the findings, assessment, and plan of care as documented except for any differences below. Patient with sudden decompensation this morning with rapid rise in pressor requirement. Suspect RV failure with stable WBC and no significant fever overnight. Patient remained on stable vent settings but became difficult to oxygenate and ventilate with high dose pressors. Eliminated use of phenylepherine with initiation of milrinone at fixed rate. Patient with most recent VBG showing central saturation in high 70s. Patient with completion of antibiotics and do not suspect that infection is primary cause with probable acute flare up of her undelrying ILD. Patient on maximal settings with tolerable PPlat in low 30s. She remains at hish risk for barotrauma though this may be false given fibrotic nature more so than true reflection of risk of barotrauma. Patient on NaHCO3 gtt to compensate and augment vasopressor function. PRN dosing of calcium gluconate as well. Patient coming down on epinephrine now. Will aim to return to only levophed/ vasopressinin combination. Milrinone to stay at current level with adequate CO now as evidence by labs. Check serial lactic acid as well. Patient started on hydrocortisone for shock support and will start on solumedrol for immunosuppression. I had multiple discussions with family memebers and they are unsure of change in code status or comfort care. I will continue to be aggressive though I fear hemodialysis is going to be required with ongoing renal failur.e Challenge with bumex for fluid status which will further complicate her course. We will reapproach family tomorrow base don status. In case of rapid decline overnight, family aware that we will call in case of need for ACLS and probable demise. Total critical care time: I personally spent 90 minutes for review of physiologic parameters, directing plan of care throughout the day, and counseling patient's family at the bedside. 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 Patient with continued need for critical care services for cardiogenic shock 2/2 decompensated right heart failure and ILD flare up. She remains at high risk for further morbidity and mortality warranting oingoing carea and monitoring only available in the ICU.
[2024-05-28] MEDS: EPINEPHrine Inj 16 MG in SODIUM CHLORIDE 0.9% 250 ML 234 ML 136.5 MG IV (11:14)
[2024-05-28] MEDS: BUMETANIDE INJ 0.25 MG/ML VIAL 4 ML 3 MG IVP (11:22)
[2024-05-28] MEDS: SODIUM CHLORIDE 0.9% IV ×7 (11:27→22:42)
[2024-05-28] MEDS: MILRINONE LACT IV (11:27)
[2024-05-28] MEDS: NOREPINEPHRINE IV ×5 (12:30→22:42)
[2024-05-28] MEDS: METHYLPREDNISOLONE IV (12:32)
[2024-05-28] MEDS: EPINEPHrine Inj 16 MG in SODIUM CHLORIDE 0.9% 250 ML 234 ML 131.04 MG IV (13:08)
--- NOTE | 2024-05-28 14:19 | ESPR_ITS ---
Documentation for date of: 05/28/24 Subjective Subjective Interval history: Remains intubated Hemoglobin hematocrit 7.8 and 27.0 No signs of any active bleeding Abdomen positive bowel sounds Exam Vital Signs Temp Pulse Resp BP Pulse Ox O2 Del Method O2 Flow Rate 97.1 F 81 32 H 133/69 H 92 L High Flow Nasal Cannula 40 05/28/24 04:00 05/28/24 13:08 05/28/24 06:20 05/28/24 13:08 05/28/24 10:33 05/27/24 06:00 05/27/24 10:15 FiO2 100 05/28/24 10:33 Objective Labs 05/28/24 04:28 05/28/24 04:28 Labs: Laboratory Results - last 24 hr 05/27/24 05/27/24 05/27/24 14:40 18:50 19:42 WBC 23.9 H D RBC 3.10 L Hgb 8.2 L Hct 28.6 L MCV 92 MCH 26.5 MCHC 28.7 L RDW Std Deviation 59.8 H Plt Count 333 D Neut % (Auto) 87 H Lymph % (Auto) 3 L [place] % (Auto) 6 Eos % (Auto) 0 Baso % (Auto) 0 Neut # (Auto) 20.9 H Lymph # (Auto) 0.6 L [place] # (Auto) 1.4 H Eos # (Auto) 0.0 Baso # (Auto) 0.1 Immature Gran # (Auto) 0.95 H Absolute Nucleated RBC 0.04 H Immature Gran % 4 H Nucleated RBC % 0 Puncture Site Right Radial Left Radial ABG pH 7.03 L* D 6.97 L* ABG pCO2 108 H* D 126 H* D ABG pO2 90 116 H D ABG HCO3 29 H 29 H ABG O2 Saturation 94 98 ABG Base Excess -3 -4 L FiO2 100 100 Sodium 145 Potassium 5.0 D Chloride 108 H Carbon Dioxide 30.1 Anion Gap 7 BUN 33 H Creatinine 2.6 H Estim Creat Clear Calc 20.1 L eGFR 21 L BUN/Creatinine Ratio 13 Glucose 195 H D Calculated Osmolality 300 H Lactic Acid 0.8 Calcium 8.6 Corrected Calcium 9.1 Phosphorus 7.4 H Magnesium 2.0 Total Bilirubin < 0.2 L AST 25 ALT 14 Alkaline Phosphatase 88 Total Protein 6.4 Albumin 3.4 L D Globulin 3.0 Albumin/Globulin Ratio 1.1 L 05/27/24 05/28/24 05/28/24 20:17 01:00 04:18 WBC RBC Hgb Hct MCV MCH MCHC RDW Std Deviation Plt Count Neut % (Auto) Lymph % (Auto) [place] % (Auto) Eos % (Auto) Baso % (Auto) Neut # (Auto) Lymph # (Auto) [place] # (Auto) Eos # (Auto) Baso # (Auto) Immature Gran # (Auto) Absolute Nucleated RBC Immature Gran % Nucleated RBC % Puncture Site Left Radial Left Radial Left Radial ABG pH 7.10 L* D 7.18 L* 7.19 L* ABG pCO2 91 H* D 76 H* D 70 H ABG pO2 154 H D 182 H D 152 H D ABG HCO3 28 H 28 H 27 H ABG O2 Saturation 99 H 100 H 100 H ABG Base Excess -2 -1 -2 FiO2 100 100 85 Sodium Potassium Chloride Carbon Dioxide Anion Gap BUN Creatinine Estim Creat Clear Calc eGFR BUN/Creatinine Ratio Glucose Calculated Osmolality Lactic Acid Calcium Corrected Calcium Phosphorus Magnesium Total Bilirubin AST ALT Alkaline Phosphatase Total Protein Albumin Globulin Albumin/Globulin Ratio 05/28/24 04:28 WBC 16.9 H D RBC 2.97 L Hgb 7.8 L Hct 27.0 L MCV 91 MCH 26.3 MCHC 28.9 L RDW Std Deviation 60.1 H Plt Count 288 D Neut % (Auto) 82 H Lymph % (Auto) 6 L [place] % (Auto) 9 Eos % (Auto) 0 Baso % (Auto) 0 Neut # (Auto) 13.8 H Lymph # (Auto) 1.0 [place] # (Auto) 1.5 H Eos # (Auto) 0.0 Baso # (Auto) 0.1 Immature Gran # (Auto) 0.45 H Absolute Nucleated RBC 0.04 H Immature Gran % 3 H Nucleated RBC % 0 Puncture Site ABG pH ABG pCO2 ABG pO2 ABG HCO3 ABG O2 Saturation ABG Base Excess FiO2 Sodium 143 Potassium 5.1 Chloride 108 H Carbon Dioxide 28.6 Anion Gap 6 L BUN 36 H Creatinine 3.0 H Estim Creat Clear Calc 17.4 L eGFR 17 L BUN/Creatinine Ratio 12 Glucose 112 H D Calculated Osmolality 294 Lactic Acid Calcium 8.4 Corrected Calcium 9.3 Phosphorus 7.4 H Magnesium 2.2 Total Bilirubin < 0.2 L AST 22 ALT 11 Alkaline Phosphatase 80 Total Protein 5.7 Albumin 2.9 L D Globulin 2.8 Albumin/Globulin Ratio 1.0 L Impressions Impression: # Colonic pseudoobstruction with stool impaction improved Continue current management ABG Interpretation ABG results: 05/23/24 05/23/24 05/26/24 12:35 16:24 09:00 ABG pH 7.17 L* 7.37 D 7.29 L ABG pCO2 71 H* 56 H D 61 H ABG pO2 68 L 104 D 71 L D ABG HCO3 26 32 H 29 H ABG O2 Saturation 89 L 98 94 ABG Base Excess -3 6 H 2 05/27/24 05/27/24 05/27/24 14:40 18:50 20:17 ABG pH 7.03 L* D 6.97 L* 7.10 L* D ABG pCO2 108 H* D 126 H* D 91 H* D ABG pO2 90 116 H D 154 H D ABG HCO3 29 H 29 H 28 H ABG O2 Saturation 94 98 99 H ABG Base Excess -3 -4 L -2 05/28/24 05/28/24 01:00 04:18 ABG pH 7.18 L* 7.19 L* ABG pCO2 76 H* D 70 H ABG pO2 182 H D 152 H D ABG HCO3 28 H 27 H ABG O2 Saturation 100 H 100 H ABG Base Excess -1 -2 Assessment & Plan A&P Narrative # Pain abdomen with bloody diarrhea abnormal CT scan of the abdomen pelvis differential diagnosis include infectious colitis versus inflammatory bowel disease Plan stool for Gram stain stool culture and sensitivity stool C. difficile CRP ANCA antibody Fecal calprotectin If above negative we will consider fiberoptic colonoscopy with possible biopsies Agree with broad-spectrum antibiotics Thank you very much for the opportunity to participate in the care of this patient Time Spent With Patient Time: Total time spent is greater than 50% in coordination of care (as documented) at patient's floor/unit and/or counseling patient:
[2024-05-28] MEDS: EPINEPHrine Inj 16 MG in SODIUM CHLORIDE 0.9% 250 ML 234 ML 118.755 MG IV (15:39)
[2024-05-28 16:35] LABS: Base Excess, Venous -11 (-3-3); O2 Saturation, Venous 77 % (96-97); PCO2, Venous 77 mmHg (36-56); PO2, Venous 52 mmHg (15-58); pH, Venous 7.03 (7.33-7.66)
[2024-05-28 17:12] LABS: Alanine Aminotransferase 798 U/L (10-49); Albumin, Serum 2.5 gm/dL (3.5-5.0); Alkaline Phosphatase 164 U/L (46-116); Anion Gap 17 (7-16); BUN/Creatinine Ratio 11 Ratio (12-20); Blood Urea Nitrogen 36 mg/dL (9-23); Calcium 7.5 mg/dL (8.3-10.6); Calcium (Corrected) 8.7 mg/dL (8.5-10.1); Carbon Dioxide 20.6 mMol/L (20.0-31.0); Chloride 109 mMol/L (98-107); Creatinine (Component) 3.3 mg/dL (0.6-1.3); Globulin 2.6 gm/dL (2.3-3.5); Glucose 140 mg/dL (74-106); Magnesium 2.2 mg/dL (1.6-2.6); Osmolality,Calculated 302 (275-295); Potassium 5.1 mMol/L (3.4-5.1); Sodium 147 mMol/L (136-145); Total Protein 5.1 gm/dL (5.7-8.2); eGFR 16 See Note
[2024-05-28 17:13] LABS: Aspartate Amino Transferase 5205 U/L (0-34)
[2024-05-28 17:14] LABS: Phosphorous 10.3 mg/dL (2.4-5.1)
[2024-05-28] MEDS: EPINEPHrine Inj 16 MG in SODIUM CHLORIDE 0.9% 250 ML 234 ML 101.01 MG IV (17:28)
[2024-05-28] MEDS: BUMETANIDE INJ 0.25 MG/ML VIAL 4 ML 2 MG IVP (18:39)
[2024-05-28] MEDS: MIRTAZAPINE 15 MG TABLET 7.5 MG PO (20:23)
[2024-05-28] MEDS: FLUoxetine HCL 10 MG CAPSULE 40 MG PO (20:23)
[2024-05-28] MEDS: EPINEPHrine Inj 16 MG in SODIUM CHLORIDE 0.9% 250 ML 234 ML 85.995 MG IV (20:30)
[2024-05-28] MEDS: EPINEPHrine Inj 16 MG in SODIUM CHLORIDE 0.9% 250 ML 234 ML 70.98 MG IV (23:55)
[2024-05-29] VITALS (82 sets, daily range): BP systolic 49–157; BP diastolic 17–78; PULSE 79–100; RESP 15–16; TEMP 36.8–37.4; O2SAT 69–90
[2024-05-29 01:33] LABS: Base Excess, Venous -6 (-3-3); Lactate (Lactic Acid) 7.8 mMol/L (0.4-2.0); O2 Saturation, Venous 80 % (96-97); PCO2, Venous 64 mmHg (36-56); PO2, Venous 53 mmHg (15-58); pH, Venous 7.15 (7.33-7.66)
[2024-05-29] MEDS: SODIUM CHLORIDE 0.9% IV ×6 (03:10→11:21)
[2024-05-29] MEDS: NOREPINEPHRINE IV ×4 (03:10→11:05)
[2024-05-29] MEDS: BUMETANIDE INJ 0.25 MG/ML VIAL 4 ML 4 MG IVP (03:22)
[2024-05-29] MEDS: VASOPRESSIN IN NS IVPB 20 UNIT/100 ML BAG 9 UNIT IV (03:38)
[2024-05-29] MEDS: BUMETANIDE INJ 20 MG in CONTAINER,EMPTY 50 ML 1 BAG 8 MG IV ×2 (03:59→08:15)
[2024-05-29 04:28] LABS: Reflex Lactate? Y
[2024-05-29] MEDS: EPINEPHrine Inj 16 MG in SODIUM CHLORIDE 0.9% 250 ML 234 ML 58.695 MG IV (04:47)
[2024-05-29] MEDS: DOPamine/D5w 400 MG IVPB 400 MG/250 ML BAG 11.813 MG IV (04:49)
[2024-05-29 05:07] LABS: Base Excess -6 (-3-3); HCO3 25 mEq/L (20-26); Inspired Oxygen, FIO2 100 %; O2 Saturation 83 % (91-98); PCO2 87 mmHg (32.0-48.0); PO2 62 mmHg (83-108)
[2024-05-29 05:13] LABS: Allen Test Performed/OK; Puncture Site Left Radial; pH, Arterial 7.06 (7.35-7.45)
--- NOTE | 2024-05-29 06:00 | XR_ITS ---
Examination: AP chest single view Technique one AP portable semiupright chest single view Exam date and time: May 29, 2024 0406 hrs. Comparison May 28, 2024 Indications: Hypoxic respiratory failure hemodynamic instability, severe pneumonia ARDS Findings: Mild enlargement cardiac contour Severe bilateral lung opacity No pneumothorax Endotracheal tube satisfactory position Right internal jugular central line tip right atrium Prominent osteopenia Impression: Severe bilateral pneumonia ARDS pattern
[2024-05-29 06:03] LABS: Lactate (Lactic Acid) 7.2 mMol/L (0.4-2.0)
[2024-05-29 06:09] LABS: Basophils # (Auto) 0.1 Thou/mm3 (0.0-0.2); Basophils % (Auto) 0 % (0-2.5); Eosinophils % (Auto) 0 % (0-10); Hematocrit 28.5 % (36.0-46.0); Immature Granulocytes % (Auto) 5 % (0-0); Immature Granulocytes Auto 1.45 Thou/mm3 (0.00-0.00); Lymphocytes % (Auto) 3 % (10-50); Mean Corpuscular HGB Conc 28.4 g/dl (31.0-37.0); Mean Corpuscular Hemoglobin 26.2 pg (25.0-35.0); Mean Corpuscular Volume 92 fL (80-100); Monocytes # (Auto) 1.4 Thou/mm3 (0.0-0.8); Monocytes % (Auto) 5 % (0-12); Neutrophils # (Auto) 27.7 Thou/mm3 (1.8-7.7); Neutrophils % (Auto) 88 % (37-80); Nucleated Red Blood Cell # 1.38 Thou/mm3 (0.00-0.00); Nucleated Red Blood Cell % 4 /100 WBC (0); Platelet Count 474 Thou/mm3 (140-440); RDW Standard Deviation 61.4 fL (36.4-46.3); Red Blood Count 3.09 Miln/mm3 (4.00-5.20); White Blood Count 31.7 Thou/mm3 (3.6-11.0)
[2024-05-29 06:14] LABS: Hemoglobin 8.1 g/dL (12.0-16.0)
[2024-05-29 06:55] LABS: Alanine Aminotransferase 2141 U/L (10-49); Albumin, Serum 2.2 gm/dL (3.5-5.0); Alkaline Phosphatase 227 U/L (46-116); Anion Gap 11 (7-16); BUN/Creatinine Ratio 10 Ratio (12-20); Bilirubin,Total 1.1 mg/dL (0.3-1.2); Blood Urea Nitrogen 39 mg/dL (9-23); Carbon Dioxide 24.7 mMol/L (20.0-31.0); Chloride 109 mMol/L (98-107); Creatinine (Component) 3.8 mg/dL (0.6-1.3); Estimated Creatinine Clearance 16.1 mL/min (>60); Globulin 2.2 gm/dL (2.3-3.5); Glucose 139 mg/dL (74-106); Osmolality,Calculated 300 (275-295); Potassium 5.2 mMol/L (3.4-5.1); Sodium 145 mMol/L (136-145); Total Protein 4.4 gm/dL (5.7-8.2); eGFR 13 See Note
[2024-05-29 06:57] LABS: Calcium 6.6 mg/dL (8.3-10.6)
[2024-05-29 06:58] LABS: Phosphorous 9.9 mg/dL (2.4-5.1)
[2024-05-29 07:23] LABS: Aspartate Amino Transferase 6523 U/L (0-34)
[2024-05-29] MEDS: Sodium Bicarb 8.4% 50ml Vial* 88.23 MEQ in DEXTROSE 5%-WATER 500 ML 100 MEQ IV ×2 (07:38→12:03)
[2024-05-29] MEDS: Sodium Bicarb Inj 8.4% SYR 50 ML SYRINGE IV ×2 (08:12→09:08)
[2024-05-29] MEDS: CALCIUM GLUCONATE 10% INJ 1 GM/10 ML VIAL IV (08:13)
[2024-05-29] MEDS: CISATRACURIUM 8 MG IV (08:41)
[2024-05-29] MEDS: CALCIUM GLUC/NS 1000MG IVPB 1,000 MG/50 ML BAG 50 MG IV (08:51)
[2024-05-29 08:59] LABS: Reflex Lactate? Y
[2024-05-29] MEDS: EPINEPHrine Inj 16 MG in SODIUM CHLORIDE 0.9% 250 ML 234 ML 68.25 MG IV (09:43)
[2024-05-29] MEDS: MIDAZOLAM INJ 1 MG/ML VIAL 2 ML 2 MG IV (09:52)
[2024-05-29] MEDS: fentaNYL CIT INJ 50 mCg/ML AMP 2ML IVP (09:54)
[2024-05-29 10:39] LABS: Lactic Acid, 3 HR 10.8 mMol/L (0.4-2.0)
[2024-05-29] MEDS: METHYLPREDNISOLONE IV (11:17)
[2024-05-29] MEDS: MILRINONE LACT IV (11:21)
--- NOTE | 2024-05-29 13:17 | DES_ITS ---
<Statement entered by James Zavala MD - 05/30/24 02:26> Attending Attestation: I was present at the time of pronouncement and agree with the assessment as documented. Documentation for date of: 05/29/24 Pronouncement Note Date and Time of Date of : 05/29/24 Time of : 13:08 Contributing Factors (1) AMS (altered mental status): (2) Hypoxia: (3) Pneumonia: (4) Colitis: Additional Data Confirmation of : no pulse, no respirations, no heart sounds and pupils fixed and dilated Family: at bedside Attending/PCP notified?: No Attending physician: James Zavala MD Was code activated?: No Autopsy requested?: No compliance examiner notified?: No Organ bank notified?: No Advance directives: No
--- NOTE | 2024-05-29 13:19 | DES_ITS ---
<Statement entered by James Zavala MD - 05/30/24 04:20> Attending Attestation: Patient seen and examined with the above resident, Darby Alonzo MD. I agree with the findings, assessment, and plan of care as documented. Patient with continued decline overnight. No significant UOP despite bumex bolus/ high dose gtt. Off sedation she remains comatose and nonresponsive to painful stimul as well. This AM unable to obtain non-invasive BP and poor pulse oximetry waveform due to high vasopressor requirements. Acute worsening of renal failure, not a candidate for HD due to high vasopressor requirements. Additional ischemic hepatits/ chock liver manifesting as well. Multiorgan failure with significant ILD flare. Despite steroids and empiric coverage for NICOLE. Patient with very limited ability to have meaningful recovery and would still require lung transplant in intermission coordinator , for which we have reviewed that she is not a candidate. In light of significant irreversible disease, patient's family agreed to DNR status. Escalation of care was limited given imminent demise on four vasopressors and maximal ventilatory support with high pPeak/ pPlat. Extensive family allowed to be at bedside with her in final moments. PEA arrest. I was present at the time of arrest. Patients family given space to be with her. Previously given my condolences for their loss. Total critical care time: I personally spent 45 minutes for review of physiologic parameters, directing plan of care, and extensive counseling of patient's family at bedside. Documentation for date of: 05/29/24 Summary Date and Time Date of admission: 05/17/24 19:58 Summary Hospital Course: 58-year-old occitan speaking female with PMHx pulmonary fibrosis(3.5 L f home O2) , HTN, and depression presenting with abdominal pain and diarrhea.Reports 1 week of gradual onset, waxing and waning, diffuse abdominal pain that worsened over the last few days. Associated with watery diarrhea and occasional streaks of blood that occurred around the same time. Admits to chronic dark stool. Also had subjective fever over the last week, but no chills or night sweats. She has tried IBUPROFEN for pain without relief of symptoms. Denies similar symptoms in the past, sick exposure, recent travel, fall or trauma, chills, night sweats, headaches, chest pain, cough, shortness of breath, nausea, vomiting or constipation, dysuria, hematuria, urinary frequency or urgency.was admitted on floors with IV antibiotics, blood cultures came back negative, was started on GoLytely and moventic and Dr Lopez was planning to do Colonoscopy. On 05/23/2024: she had a rapid response, most likely seizure activity and hypoxia following that. She was in the restroom after the Movantik and GoLytely and had large bowel movement. she was hypoxic on 50s and was upgrade to ICU for closer monitoring .She was started on Keppra with neurology on board. EEG did not show any epileptiform discharges,Keppra was discontinued, it was intermittent episodes of panic attack likely from underlying anxiety.her sedation medication was adjusted accordingly . Was able to get PFT from primary care which showed severe restrictive pattern. CT chest was done which showed Severe bilateral pulmonary fibrosis, Significant superimposed pneumonia possibly pulmonary edema. on 05/27/24: she had significant decline after panic attack she was on HHHFNC at maximal settings.Attempts were made to support but her mentation continued to deteriorate and she failed to oxygenation/ ventilation with Bipap due to anxiety/ agitation . Precedex was attempted to facilitate along with diluadid for air hunger with no significant relief . family was present at bedside and proceeded to intubation. she was started on Levoquin for possible underlying HCAP. and on Bumex therapy .family was made aware that treatment and potential therapy would be transplant but she is not a candidate at this time given high dose methadone/ seroquel and severe debility. on 05/28/24: She had a sudden decompation with rapid rise in pressure requirement, most likely RV failure with no significant fever and normal WBC . she remained stable vent settings but fiona me difficult to oxygenate and ventilate with high dose pressors.she was started on NaHCO3 gtt to compensate and augment vasopressor function. PRN dosing of calcium gluconate as well. She was coming down on epinephrine now. She was started on hydrocortisone for shock support . on 05/29/24: she was maxed out on all pressure support her lactic acid was 7.2, with increase transaminitis with minimum urine output, she was going into multi organ failure , dialysis was not a choice , it would be difficult because of her pressure requirement. Family was made aware at bedside , and they changed her code status to DNI/DNR and she passed at 13:08 with PEA arrest. family was present at bedside . #Acute on chronic hypoxic respi failure #Community-acquired pneumonia #Severe pulmonary fibrosis #COPD ruled out #Acute metabolic encephalopathy #possible seizure r/o #Primary hypertension #Diffuse colitis, possible GI infection #GI bleed #Ileus ruled out #Leukocytosis #H pylori #Lactic acidosis #respiratory acidosis #REBA #Acute Renal Failure #Acute Liver Failure #Hypoglycemia #Depression #panic Attack #Opioid dependence, on methadone therapy. #Normocytic anemia Case Discussed With My Attending Dr Sally Alonzo MD,PGY-3 Additional Data Attending physician: James Zavala MD Visit Providers Provider Primary care physician: Riley Hess PA-C Consults: 05/17/24 20:14 Consult to Gastroenterology Routine Comment: Consulting Provider: Tatiana Lopez 05/17/24 22:28 Referral Infection Control Routine Comment: Reason for Infection Control Referral: Admitted with Diarrhea Referral Registered Dietitian Routine Comment: 05/23/24 14:21 Consult to Neurology / Tele-Neurology Routine Comment: possible seizure Consulting Provider: Jose Palomo 05/25/24 11:01 Referral Speech Therapy Routine Comment: Diagnosis Contributing Factors (1) AMS (altered mental status): (2) Hypoxia: (3) Pneumonia: (4) Colitis: Discharge Plan Plan Patient Disposition: Patient condition on transfer: Stable Prescriptions/Referrals Referrals: Riley Hess PA-C [Primary Care Provider] - Patient/Caregiver Discharge Instructions Print Language: Turkmen
--- NOTE | 2024-05-29 14:23 | PC.NURSE ---
[facility]13 [employer] CONTACTED, PATIENT SUITABLE FOR DONATION REF# [id number]
== END 2024-05-29 13:08 | disposition expired | DRG 391 ==
LOC: SERX 19:57 → SERHOLD 20:15 → S2NX 21:29 → S2SX 05-23 12:50
PROVIDERS: Nurse Practitioner Primary Care; Specialist; Student in an Organized Health Care Education/Training Program; Admitting Provider Student in an Organized Health Care Education/Training Program; Emergency Provider Emergency Medicine; PCP Physician Assistant; Visit Provider Internal Medicine Critical Care Medicine
DX: A09 Infectious gastroenteritis and colitis, unspecified (principal); G93.41 Metabolic encephalopathy; J18.9 Pneumonia, unspecified organism; K72.00 Acute and subacute hepatic failure without coma; J96.21 Acute and chronic respiratory failure with hypoxia; D84.9 Immunodeficiency, unspecified; E87.29 Other acidosis; F11.20 Opioid dependence, uncomplicated; N17.9 Acute kidney failure, unspecified; J81.1 Chronic pulmonary edema; I10 Essential (primary) hypertension; F32.A Depression, unspecified; F17.210 Nicotine dependence, cigarettes, uncomplicated; J84.10 Pulmonary fibrosis, unspecified; D64.9 Anemia, unspecified; F41.0 Panic disorder [episodic paroxysmal anxiety]; F41.1 Generalized anxiety disorder; I50.810 Right heart failure, unspecified; K59.03 Drug induced constipation; Z99.81 Dependence on supplemental oxygen; K59.81 Ogilvie syndrome; I46.2 Cardiac arrest due to underlying cardiac condition; K75.81 Nonalcoholic steatohepatitis (NASH); R56.9 Unspecified convulsions; R57.0 Cardiogenic shock; T40.2X5A Adverse effect of other opioids, initial encounter; Y95 Nosocomial condition; E16.2 Hypoglycemia, unspecified; M79.89 Other specified soft tissue disorders; Z66 Do not resuscitate; R00.1 Bradycardia, unspecified; Z79.899 Other long term (current) drug therapy; Z11.52 Encounter for screening for COVID-19
CPT/HCPCS: 36415; 36600; 71045; 71046; 71250; 74018; 74177; 76705; 78582; 80053; 80074; 80307; 81001; 82550; 82803; 83605; 83615; 83690; 83735; 83880; 83993; 84100; 84145; 84450; 84484; 85025; 85610; 85652; 85730; 86021; 86036; 86140; 87015; 87040; 87045; 87046; 87106; 87205; 87329; 87338; 87449; 87493; 87811; 87899; 89220; 92526; 92610; 93005; 93306; 94002; 94003; 94640; 94664; 95816; 96360; 96361; 96374; 99285; A4649; A9270; A9539; A9540; J0171; J0330; J0456; J0612; J0613; J0696; J0744; J1171; J1265; J1720; J1953; J1956; J2250; J2260; J2270; J2371; J2405; J2470; J2543; J2598; J2704; J2760; J2765; J2919; J3010; J3490; J7030; J7050; J7060; J7120; P9047; Q9967; J1836